=== PATIENT | male | born 1955 | race African-American/Black ===

== ENCOUNTER 2018-10-28 10:38 | Inpatient (IN) | payer MEDICARE, MEDICAID, OTHER | END 2018-11-01 17:23 | disposition home or self-care (01) | LOC: ER 10:38 → TELE 10:40 → TELE-WESTW 22:18 | DX: I13.0 Hypertensive heart and chronic kidney disease with heart failure and stage 1 through stage 4 chronic kidney disease, or unspecified chronic kidney disease (principal); I50.23 Acute on chronic systolic (congestive) heart failure; R07.9 Chest pain, unspecified; I25.10 Atherosclerotic heart disease of native coronary artery without angina pectoris; N18.9 Chronic kidney disease, unspecified ==

== ENCOUNTER 2018-11-26 17:10 | Inpatient (IN) | payer MEDICARE, MEDICAID ==
[~2018-11-26] VITALS: Ht 182.9 cm; Wt 105.5 kg
[~2018-11-26 17:10] MED LIST: ASPI1TAB19 PO; CLOP75TA28 PO; DEXL60CA3 PO; FURO40TA4; LEVEMIR SC; LIRA18IN2 SUBCUT; LISI10TA6 PO; METF-490 PO; METO25TA5 PO; POT10T PO; PREG100C PO; ROSU40TA PO; TRIAPOW43 PO
[2018-11-26] MEDS ORDERED: ACETAMINOPHEN 325 MG TAB PO ONE (17:45)
[2018-11-26 18:05] LABS: Basophils # (auto) 0 uL; Eosinophils # (auto) 0.2 uL; Hemoglobin 11.6 g/dL (13.5-17.5); Lymphocytes # (auto) 1.8 uL; Monocytes # (auto) 0.5 uL; Nucleated Red Blood Cells % 0.1 %; White Blood Cell 5.4 10^3/uL (4.4-10.8)
[2018-11-26 18:10] LABS: Basophils % (auto) 0.1 % (0.0-2.0); Hematocrit 36.9 % (41.0-53.0); Lymphocytes % (auto) 32.7 % (10.0-50.0); Mean Corpuscular Hemoglobin 24.9 pg (28.0-32.0); Mean Corpuscular Hgb Conc. 31.5 g/dL (32.0-36.0); Mean Corpuscular Volume 78.9 fL (80.0-100.0); Monocytes % (auto) 8.4 % (0.0-12.0); Neutrophils % (auto) 55.8 % (37.0-80.0); Platelet Count (auto) 134 10^3/uL (140-450); Red Blood Cells 4.68 10^6/uL (4.5-5.90); Red Cell Distribution Width 18.4 % (11.8-14.3)
[2018-11-26 18:15] LABS: Albumin 2.9 g/dL (3.4-5.0); Anion Gap 4 (5-15); Blood Urea Nitrogen 20 mg/dL (7-18); Calcium 8.1 mg/dL (8.5-10.1); Carbon Dioxide 30 mmol/L (21-32); Chloride 107 mmol/L (98-107); Glucose 114 mg/dL (74-106); Magnesium 2.4 mg/dL (1.6-2.6); Potassium 3.7 mmol/L (3.5-5.1); Sodium 141 mmol/L (136-145)
[2018-11-26 18:22] LABS: Alanine Aminotransferase 16 U/L (16-61); Alkaline Phosphatase 138 U/L (45-117); Aspartate Aminotransferase 19 U/L (15-37); BUN/Creatinine Ratio 12.3; Bilirubin, Total 0.2 mg/dL (0.2-1.0); GFR African American 56 mL/min; GFR Non-African American 46 mL/min; Total Protein 6.6 g/dL (6.4-8.2)
[2018-11-26] MEDS ORDERED: HYDROmorphone HCL 2 MG/ML VL IV ONE (20:30)
[2018-11-26] MEDS ORDERED: SOD CHL 0.45% 1,000 ML IV ONE (20:30)
[2018-11-26] MEDS ORDERED: SODIUM CHLORIDE 0.9% 2,000 ML IV ONE (20:30)
[2018-11-26] MEDS ORDERED: DEXTROSE (50%) 50ML SYRG IV PRN (20:30)
[2018-11-26] MEDS ORDERED: ONDANSETRON HCL 4 MG/2 ML VIAL IV PRN (20:30)
[2018-11-26] MEDS ORDERED: NITROGLYCERIN 0.4 MG SL TAB SL PRN ×2 (20:30→22:00)
[2018-11-26 20:40] LABS: Amylase 94 U/L (25-115); Lipase 148 U/L (73-393)
[2018-11-26 20:41] LABS: Partial Thromboplastin Time 27.5 sec (23.64-32.05)
[2018-11-26] MEDS: ACCU-CHEK COMFORT CURVE STRIP VI SCH (22:00)
[2018-11-26 22:30] LABS: Urine Bacteria NONE SEEN /hpf (None Seen); Urine Blood Negative /uL (Negative); Urine Specific Gravity 1.011 (1.001-1.035); Urine WBC <1 /hpf (0 - 3)
--- NOTE | 2018-11-26 22:30 | NUR ---
Telemetry admit from [facility]ATTI admitted to Telemetry unit after SBAR received. Patient oriented to LILIAM GONSALEZ, RN primary RN, unit, room, bed, and unit policies regarding patient care and visiting hours. Patient now on continuous telemetry monitoring, tele box #28 and telemetry reading on arrival to unit is Sinus Bradycardia. Patient placed on bedside oxygen, weighed by bedscale and encouraged to call if they need something. All questions and concerns addressed, patient verbalized understanding.
[2018-11-26 22:50] LABS: Alcohol, Urine < 3.0 mg/dL (0-5); Amphetamine Screen, Urine NEGATIVE (NEGATIVE); Barbiturate Scree,Urine POSITIVE (NEGATIVE); Benzodiazephine Screen, Urine NEGATIVE (NEGATIVE); Cannabinoid Screen, Urine NEGATIVE (NEGATIVE); Cocaine Screen, Urine NEGATIVE (NEGATIVE); Opiate Scree,Urine NEGATIVE (NEGATIVE); Phencyclidine Screen, Urine NEGATIVE (NEGATIVE)
[2018-11-27 00:07] VITALS: BP 128/67
--- NOTE | 2018-11-27 00:19 | NUR ---
Primary MD paged: Patient complaining of 7/10 pain and requesting pain medication.
--- NOTE | 2018-11-27 00:22 | NUR ---
Dr. Ramsey returned call: Dr. Ramsey notified of patients condition. New orders obtained.
[2018-11-27] MEDS ORDERED: OXYCODONE W/ ACETAMINOPHEN 5/325MG TABLET PO PRN ×2 (00:30→16:32)
[2018-11-27 05:45] VITALS: BP 119/58
[2018-11-27] MEDS: ACCU-CHEK COMFORT CURVE STRIP VI SCH ×4 (06:31→21:33)
[2018-11-27 06:32] LABS: Basophils # (auto) 0 uL; Basophils % (auto) 0.2 % (0.0-2.0); Eosinophils # (auto) 0.2 uL; Hematocrit 37.9 % (41.0-53.0); Lymphocytes # (auto) 2.1 uL; Mean Corpuscular Hgb Conc. 31.7 g/dL (32.0-36.0); Monocytes # (auto) 0.4 uL; Neutrophils # (auto) 3.2 uL; Platelet Count (auto) 127 10^3/uL (140-450); Red Cell Distribution Width 18.3 % (11.8-14.3); White Blood Cell 5.9 10^3/uL (4.4-10.8)
[2018-11-27] MEDS: InsuLIN REG 1unit/0.01ml Soln (100units/ml) SC SCH ×3 (06:32→17:00)
[2018-11-27 06:35] LABS: Eosinophils % (auto) 3.4 % (0.0-7.0); Lymphocytes % (auto) 35.7 % (10.0-50.0); Mean Corpuscular Hemoglobin 24.8 pg (28.0-32.0); Mean Corpuscular Volume 78.4 fL (80.0-100.0); Monocytes % (auto) 6.9 % (0.0-12.0); Neutrophils % (auto) 53.8 % (37.0-80.0); Red Blood Cells 4.84 10^6/uL (4.5-5.90)
[2018-11-27 06:53] LABS: Albumin 2.9 g/dL (3.4-5.0); BUN/Creatinine Ratio 14.1; Bilirubin, Total 0.1 mg/dL (0.2-1.0); Calcium 8.3 mg/dL (8.5-10.1)
--- NOTE | 2018-11-27 07:30 | NUR ---
Opening Shift Note Assumed care of patient, awake, alert, and oriented x4. No S/S of distress/SOB, but patient is reporting generalized left sided body pain of 6/10. IV is in right AC 18 gauge and is asymptomatic, intact, patent, and saline locked. IV is in right forearm 18 gauge and is asymptomatic, intact, patent, and infusing 1/2 normal saline at 40 mL/hour. Bed is locked and in lowest position and call light is within reach. Instructed on POC and to call for assist PRN, and patient verbalized understanding. Will continue to monitor for changes Q1hr and PRN.
[2018-11-27 08:00] VITALS: BP 105/51
--- NOTE | 2018-11-27 09:00 | NUR ---
Dr. Scooter MD, at bedside. New orders received.
--- NOTE | 2018-11-27 09:00 | NUR ---
Patient requested to speak with charge nurseVargas. Charge nurseVargas, at bedside.
[2018-11-27] MEDS ORDERED: POTASSIUM CHL 10 Meq TABLET PO PRN (09:45)
[2018-11-27] MEDS ORDERED: HYDROmorphone HCL 2 MG/ML VL IV PRN ×2 (09:45→10:30)
[2018-11-27] MEDS ORDERED: INSULIN DETEMIR 100 UNIT SC SCH (10:00)
[2018-11-27] MEDS: FAMOTIDINE (10MG/ML) 2ML VL IV SCH ×2 (10:09→21:32)
[2018-11-27] MEDS: CLOPIDOGREL BISULFATE 75 MG TAB PO SCH (10:10)
[2018-11-27] MEDS: ASPirin-EC 81 mg tab PO SCH (10:10)
[2018-11-27] MEDS: LEVETIRACETAM 500 MG TAB PO SCH ×2 (10:10→21:32)
[2018-11-27] MEDS ORDERED: PREGABALIN 25 MG CAP PO ONE (10:15)
[2018-11-27] MEDS ORDERED: FAMOTIDINE (10MG/ML) 2ML VL IV ONE (10:15)
[2018-11-27] MEDS ORDERED: PREGABALIN CAPSULE 75 MG CAP PO ONE (10:15)
[2018-11-27] MEDS ORDERED: POTASSIUM CHLORIDE 8 MEQ TAB PO PRN (10:30)
--- NOTE | 2018-11-27 10:30 | NUR ---
Received call from pharmacist Cheri; need new orders put in by Dr. Helms verified. Paged Dr. Helms. Awaiting reply.
[2018-11-27 12:00] VITALS: BP 146/83
--- NOTE | 2018-11-27 13:00 | NUR ---
Patient had large bowel movement. Stool culture sent to Lab.
--- NOTE | 2018-11-27 13:15 | NUR ---
[employer] performed full linen change and bed bath.
[2018-11-27] MEDS ORDERED: HYDROmorphone HCL 2 MG/ML VL IV ONE (15:45)
[2018-11-27 16:00] VITALS: BP 115/58
--- NOTE | 2018-11-27 16:00 | NUR ---
Dr. Scooter MD, verified pharmacy orders.
[2018-11-27] MEDS ORDERED: INSULIN LANTUS (GLARGINE) 1 /0.01ml (100units/ml) SC SCH (17:00)
[2018-11-27] MEDS: INSULIN LANTUS (GLARGINE) 1 /0.01ml (100units/ml) SC SCH (17:00)
[2018-11-27] MEDS: POTASSIUM CHLORIDE 8 MEQ TAB PO SCH (17:01)
--- NOTE | 2018-11-27 17:04 | NUR ---
assessment Patient will need a resumption order for [facility] on discharge. Addendum: 11/27/18 at 1705 by Shivani VALENZUELA Amended: Links added.
[2018-11-27] MEDS: metFORMIN HYDROCHLORIDE 500 MG TAB PO SCH (17:12)
--- NOTE | 2018-11-27 17:16 | NUR ---
Patient blood sugar reading is 113. Patient has refused Lantus, and Metformin dose. No distress noted at this time. Will continue to monitor patient Q1.
--- NOTE | 2018-11-27 19:00 | NUR ---
Opening Shift Note Assumed care of patient, awake and alert. No S/S of distress/SOB or pain. Instructed on POC and to call for assist PRN, will continue to monitor for changes Q1hr and PRN.
[2018-11-27] MEDS: HYDROmorphone HCL 2 MG/ML VL IV PRN ×2 (20:00→23:43)
[2018-11-27] MEDS: PREGABALIN 25 MG CAP PO SCH (21:33)
[2018-11-27] MEDS: ATORVASTATIN 20 MG TAB PO SCH (21:33)
[2018-11-27] MEDS: PREGABALIN CAPSULE 75 MG CAP PO SCH (21:33)
--- NOTE | 2018-11-27 22:00 | NUR ---
Patient blood sugar 114.
[2018-11-28] MEDS: HYDROmorphone HCL 2 MG/ML VL IV PRN ×5 (05:16→23:41)
[2018-11-28 05:50] VITALS: BP 130/69
[2018-11-28 05:56] LABS: Basophils # (auto) 0 uL; Eosinophils # (auto) 0.2 uL; Hemoglobin 12.1 g/dL (13.5-17.5); Mean Corpuscular Hemoglobin 24.8 pg (28.0-32.0); Monocytes # (auto) 0.4 uL; Red Blood Cells 4.87 10^6/uL (4.5-5.90)
[2018-11-28 05:58] LABS: Basophils % (auto) 0.4 % (0.0-2.0); Eosinophils % (auto) 3.8 % (0.0-7.0); Hematocrit 38.1 % (41.0-53.0); Lymphocytes # (auto) 2.1 uL; Lymphocytes % (auto) 36.1 % (10.0-50.0); Mean Corpuscular Hgb Conc. 31.7 g/dL (32.0-36.0); Mean Corpuscular Volume 78.3 fL (80.0-100.0); Monocytes % (auto) 7.6 % (0.0-12.0); Neutrophils % (auto) 52.1 % (37.0-80.0); Nucleated Red Blood Cells % 0.1 %; Platelet Count (auto) 127 10^3/uL (140-450); Red Cell Distribution Width 18.4 % (11.8-14.3); White Blood Cell 5.8 10^3/uL (4.4-10.8)
[2018-11-28 06:03] LABS: BUN/Creatinine Ratio 13.6; Calcium 8.2 mg/dL (8.5-10.1); Potassium 4.1 mmol/L (3.5-5.1)
[2018-11-28] MEDS: ACCU-CHEK COMFORT CURVE STRIP VI SCH ×4 (06:31→21:58)
[2018-11-28] MEDS: InsuLIN REG 1unit/0.01ml Soln (100units/ml) SC SCH ×3 (06:31→17:00)
[2018-11-28] MEDS: INSULIN LANTUS (GLARGINE) 1 /0.01ml (100units/ml) SC SCH ×2 (06:32→17:00)
--- NOTE | 2018-11-28 07:45 | NUR ---
Opening Patient awake in bed, bed in lowest position, call light within reach. No distress noted at this time. Will f/u with morning assessment. Reviewing charts: HGB 12.1 HCT 38.1 Tox screen: positive for barbiturates UA --negative CXR -- cardimegaly, pulm vasc congestion, atelectasis Low lobes Head ct --chronic changes Stress test negative with MD TREJO Trop negative x 3 Stool negative for blood EKG once daily at 0500 shown SB report from [facility] nurse SS --[facility], notes indicate a need for resumption order on discharge for this patient Will continue to monitor this patient
[2018-11-28] MEDS: metFORMIN HYDROCHLORIDE 500 MG TAB PO SCH ×2 (08:00→17:32)
[2018-11-28 09:00] VITALS: BP 133/70
[2018-11-28] MEDS: LEVETIRACETAM 500 MG TAB PO SCH ×2 (09:54→21:58)
[2018-11-28] MEDS: POTASSIUM CHLORIDE 8 MEQ TAB PO SCH (09:54)
[2018-11-28] MEDS: PREGABALIN 25 MG CAP PO SCH ×2 (09:55→21:58)
[2018-11-28] MEDS: PREGABALIN CAPSULE 75 MG CAP PO SCH ×2 (09:55→21:58)
[2018-11-28] MEDS: FAMOTIDINE (10MG/ML) 2ML VL IV SCH ×2 (09:55→21:58)
[2018-11-28] MEDS: CLOPIDOGREL BISULFATE 75 MG TAB PO SCH (10:00)
[2018-11-28] MEDS: ASPirin-EC 81 mg tab PO SCH (10:00)
[2018-11-28 13:00] VITALS: BP_SYST 137; BP_SYST 139; BP_DIAS 72; BP_DIAS 84
--- NOTE | 2018-11-28 14:38 | NUR ---
FYI-patient was previously on service with [facility].
[2018-11-28 17:00] VITALS: BP 131/53
--- NOTE | 2018-11-28 19:20 | NUR ---
Opening Shift Note Assumed care of patient, awake and alert. No S/S of distress/SOB. Patient complaining of 8/10 generalized pain, will medicate as ordered, see eMAR. Instructed on POC and to call for assist PRN. Bed in lowest locked position, call light within reach, side rails up x2, fall precautions in place. Will continue to monitor for changes Q1hr and PRN.
--- NOTE | 2018-11-28 21:50 | NUR ---
Dr. Helms at bedside.
[2018-11-28] MEDS: ATORVASTATIN 20 MG TAB PO SCH (21:58)
[2018-11-28 22:00] VITALS: BP 130/67
[2018-11-29 05:00] VITALS: BP 119/50
[2018-11-29] MEDS: HYDROmorphone HCL 2 MG/ML VL IV PRN ×5 (05:05→22:25)
[2018-11-29] MEDS: InsuLIN REG 1unit/0.01ml Soln (100units/ml) SC SCH ×3 (06:28→16:51)
[2018-11-29] MEDS: INSULIN LANTUS (GLARGINE) 1 /0.01ml (100units/ml) SC SCH ×2 (06:29→16:51)
[2018-11-29] MEDS: ACCU-CHEK COMFORT CURVE STRIP VI SCH ×4 (06:29→21:38)
--- NOTE | 2018-11-29 07:42 | NUR ---
Opening Patient awake in bed, bed in lowest position, call light within reach. No distress noted at this time. Will f/u with morning assessment. Consult for bradycardia with MD TREJO has been place/called. Patient has sustained bradycardia asymptomatic Will continue to monitor this patient
[2018-11-29] MEDS: metFORMIN HYDROCHLORIDE 500 MG TAB PO SCH ×2 (08:00→16:52)
[2018-11-29 09:00] VITALS: BP 145/70
[2018-11-29] MEDS: FAMOTIDINE (10MG/ML) 2ML VL IV SCH ×2 (09:23→21:33)
[2018-11-29] MEDS: LEVETIRACETAM 500 MG TAB PO SCH ×2 (09:24→21:34)
[2018-11-29] MEDS: PREGABALIN CAPSULE 75 MG CAP PO SCH ×2 (09:24→21:33)
[2018-11-29] MEDS: POTASSIUM CHLORIDE 8 MEQ TAB PO SCH (09:24)
[2018-11-29] MEDS: PREGABALIN 25 MG CAP PO SCH ×2 (09:24→21:47)
[2018-11-29] MEDS: CLOPIDOGREL BISULFATE 75 MG TAB PO SCH (09:31)
[2018-11-29] MEDS: ASPirin-EC 81 mg tab PO SCH (09:31)
[2018-11-29] MEDS ORDERED: KETOROLAC TROMETH 15 mg/ml 1ML VL IV PRN (11:15)
[2018-11-29 13:00] VITALS: BP 148/71
--- NOTE | 2018-11-29 15:00 | NUR ---
MARIELA OLSON WANTS TO KEEP PATIENT UNTIL FURTHER NOTICE, DUE TO BRADYCARDIA
[2018-11-29 17:00] VITALS: BP 144/69
--- NOTE | 2018-11-29 20:00 | NUR ---
Opening Shift Note Assumed care of patient, awake and alert. No S/S of distress/SOB or pain. Instructed on POC and to call for assist PRN, will continue to monitor for changes Q1hr and PRN.Family at bedside.
[2018-11-29] MEDS: ATORVASTATIN 20 MG TAB PO SCH (21:34)
[2018-11-29 22:00] VITALS: BP 104/54
[2018-11-30] MEDS: HYDROmorphone HCL 2 MG/ML VL IV PRN ×3 (04:57→14:28)
[2018-11-30 05:00] VITALS: BP 120/73
[2018-11-30] MEDS: INSULIN LANTUS (GLARGINE) 1 /0.01ml (100units/ml) SC SCH ×2 (05:46→17:00)
[2018-11-30] MEDS: ACCU-CHEK COMFORT CURVE STRIP VI SCH ×3 (05:46→17:00)
[2018-11-30] MEDS: InsuLIN REG 1unit/0.01ml Soln (100units/ml) SC SCH ×3 (05:47→17:00)
[2018-11-30 05:56] LABS: Basophils # (auto) 0 uL; Basophils % (auto) 0.2 % (0.0-2.0); Eosinophils # (auto) 0.2 uL; Eosinophils % (auto) 3.4 % (0.0-7.0); Hematocrit 41.7 % (41.0-53.0); Hemoglobin 13.1 g/dL (13.5-17.5); Lymphocytes # (auto) 2.5 uL; Lymphocytes % (auto) 37.1 % (10.0-50.0); Mean Corpuscular Hemoglobin 24.7 pg (28.0-32.0); Mean Corpuscular Hgb Conc. 31.4 g/dL (32.0-36.0); Mean Corpuscular Volume 78.8 fL (80.0-100.0); Monocytes # (auto) 0.5 uL; Monocytes % (auto) 7.2 % (0.0-12.0); Neutrophils # (auto) 3.5 uL; Neutrophils % (auto) 52.1 % (37.0-80.0); Nucleated Red Blood Cells % 0.1 %; Platelet Count (auto) 121 10^3/uL (140-450); Red Blood Cells 5.29 10^6/uL (4.5-5.90); White Blood Cell 6.7 10^3/uL (4.4-10.8)
--- NOTE | 2018-11-30 07:26 | NUR ---
Report given to Gallo Hylton ,patient is resting no distress.
[2018-11-30] MEDS: metFORMIN HYDROCHLORIDE 500 MG TAB PO SCH ×2 (08:00→18:00)
[2018-11-30 09:00] VITALS: BP 130/52
[2018-11-30] MEDS: FAMOTIDINE (10MG/ML) 2ML VL IV SCH (10:28)
[2018-11-30] MEDS: LEVETIRACETAM 500 MG TAB PO SCH (10:28)
[2018-11-30] MEDS: ASPirin-EC 81 mg tab PO SCH (10:28)
[2018-11-30] MEDS: PREGABALIN CAPSULE 75 MG CAP PO SCH (10:28)
[2018-11-30] MEDS: POTASSIUM CHLORIDE 8 MEQ TAB PO SCH (10:28)
[2018-11-30] MEDS: PREGABALIN 25 MG CAP PO SCH (10:28)
[2018-11-30] MEDS: CLOPIDOGREL BISULFATE 75 MG TAB PO SCH (10:28)
[2018-11-30 13:00] VITALS: BP 131/81
[2018-11-30 15:05] VITALS: BP 131/81
[2018-11-30 16:59] VITALS: BP 139/72
== END 2018-11-30 19:00 | disposition home or self-care (01) | DRG 314 ==
LOC: EDBD 17:10 → ER 17:16 → TELE 17:17 → TELE-WESTW 22:42
PROVIDERS: ADMIT Specialist; ATTEND Specialist
DX: I95.9 Hypotension, unspecified (principal); G82.50 Quadriplegia, unspecified; I13.0 Hypertensive heart and chronic kidney disease with heart failure and stage 1 through stage 4 chronic kidney disease, or unspecified chronic kidney disease; K92.1 Melena; F11.20 Opioid dependence, uncomplicated; I69.354 Hemiplegia and hemiparesis following cerebral infarction affecting left non-dominant side; I69.351 Hemiplegia and hemiparesis following cerebral infarction affecting right dominant side; I25.10 Atherosclerotic heart disease of native coronary artery without angina pectoris; E11.21 Type 2 diabetes mellitus with diabetic nephropathy; E11.42 Type 2 diabetes mellitus with diabetic polyneuropathy; E86.1 Hypovolemia; I50.9 Heart failure, unspecified; G40.909 Epilepsy, unspecified, not intractable, without status epilepticus; N18.9 Chronic kidney disease, unspecified; E11.22 Type 2 diabetes mellitus with diabetic chronic kidney disease; E66.09 Other obesity due to excess calories; E78.00 Pure hypercholesterolemia, unspecified; G47.30 Sleep apnea, unspecified; J44.9 Chronic obstructive pulmonary disease, unspecified; E78.5 Hyperlipidemia, unspecified; R00.1 Bradycardia, unspecified; K21.9 Gastro-esophageal reflux disease without esophagitis; I25.5 Ischemic cardiomyopathy; G89.29 Other chronic pain; M54.9 Dorsalgia, unspecified; I70.0 Atherosclerosis of aorta; Z88.6 Allergy status to analgesic agent; Z88.5 Allergy status to narcotic agent; Z88.0 Allergy status to penicillin; Z79.84 Long term (current) use of oral hypoglycemic drugs; Z82.3 Family history of stroke; Z83.3 Family history of diabetes mellitus; Z82.49 Family history of ischemic heart disease and other diseases of the circulatory system; Z80.0 Family history of malignant neoplasm of digestive organs; Z79.02 Long term (current) use of antithrombotics/antiplatelets; Z95.5 Presence of coronary angioplasty implant and graft; Z79.899 Other long term (current) drug therapy; Z68.31 Body mass index [BMI] 31.0-31.9, adult
CPT/HCPCS: 36415; 70450; 71045; 80048; 80053; 80307; 81001; 82010; 82150; 82270; 82533; 82962; 83036; 83690; 83735; 83880; 84443; 84484; 85025; 85610; 85730; 87081; 93005; 94761; 96374; G0378; J3490

== ENCOUNTER 2020-07-29 21:42 | Inpatient (IN) | payer MEDICARE, MEDICAID ==
[~2020-07-29] VITALS: Ht 180.3 cm; Wt 110.2 kg
[~2020-07-29 21:42] MED LIST changes: -DEXL60CA3 PO; +DEXL60CA4 PO; +LISI-648 PO; -LISI10TA6 PO; -METO25TA5 PO
[2020-07-29] MEDS ORDERED: MORPHINE SULFATE 4 MG/ML SYR/VIAL IV ONE (22:45)
[2020-07-29] MEDS ORDERED: ONDANSETRON HCL 4 MG/2 ML VIAL IV ONE (22:45)
[2020-07-29 22:57] LABS: Basophils # (auto) 0 10 ^3/uL (0-0.2); Basophils % (auto) 0.7 % (0.0-2.0); Eosinophils # (auto) 0.1 10 ^3/uL (0-0.8); Eosinophils % (auto) 2.2 % (0.0-7.0); Hematocrit 38.3 % (41.0-53.0); Hemoglobin 12.6 g/dL (13.5-17.5); Lymphocytes % (auto) 18.7 % (10.0-50.0); Mean Corpuscular Hemoglobin 28.1 pg (28.0-32.0); Mean Corpuscular Volume 85.1 fL (80.0-100.0); Monocytes # (auto) 0.3 10 ^3/uL (0-1.3); Monocytes % (auto) 5.4 % (0.0-12.0); Neutrophils # (auto) 3.9 10 ^3/uL (1.6-8.6); Nucleated Red Blood Cells % 0.1 %; Platelet Count (auto) 161 10^3/uL (140-450); Red Cell Distribution Width 17.7 % (11.8-14.3); White Blood Cell 5.4 10^3/uL (4.4-10.8)
[2020-07-29 23:21] LABS: Alanine Aminotransferase 7 U/L (16-61); Albumin 3.3 g/dL (3.4-5.0); Anion Gap 12 (5-15); Aspartate Aminotransferase 14 U/L (15-37); BUN/Creatinine Ratio 10.7; Blood Urea Nitrogen 9 mg/dL (7-18); Calcium 8.6 mg/dL (8.5-10.1); Carbon Dioxide 22 mmol/L (21-32); Chloride 105 mmol/L (98-107); GFR African American 118 mL/min; GFR Non-African American 97 mL/min; Glucose 134 mg/dL (74-106); Potassium 3.7 mmol/L (3.5-5.1); Sodium 139 mmol/L (136-145)
[2020-07-29 23:35] LABS: Alkaline Phosphatase 99 U/L (45-117); Bilirubin, Total 0.3 mg/dL (0.2-1.0); Total Protein 7.7 g/dL (6.4-8.2)
[2020-07-29 23:50] LABS: INR 1.14 (0.9-1.15); Partial Thromboplastin Time 28.6 sec (23.0-31.2)
[2020-07-30 00:15] LABS: Amylase 88 U/L (25-115); Lipase 187 U/L (73-393)
[2020-07-30] MEDS ORDERED: MORPHINE SULFATE 4 MG/ML SYR/VIAL IV ONE (00:15)
[2020-07-30] MEDS ORDERED: IOHEXOL 350 MG/ML 100ML IJ ONE (00:39)
[2020-07-30] MEDS ORDERED: cefTRIAXone 1GM/50ML D5W 50 ML IV ONE (00:45)
[2020-07-30 01:47] LABS: Urine Bacteria FEW /hpf (None Seen); Urine Blood Negative /uL (Negative); Urine Mucus FEW (None Seen); Urine WBC 3 /hpf (0 - 3)
[2020-07-30] MEDS ORDERED: PIPERACILLIN-TAZOB 3.375GM 100 ML IV ONE (02:00)
[2020-07-30] MEDS ORDERED: NITROGLYCERIN 0.4 MG SL TAB SL PRN (03:15)
[2020-07-30] MEDS ORDERED: MORPHINE SULF INJ 2 MG/ML SYRINGE 1ML IV PRN (03:15)
[2020-07-30] MEDS: MORPHINE SULFATE 4 MG/ML SYR/VIAL IV PRN ×3 (04:19→21:27)
[2020-07-30 05:44] LABS: Basophils # (auto) 0 10 ^3/uL (0-0.2); Basophils % (auto) 0.8 % (0.0-2.0); Eosinophils # (auto) 0.2 10 ^3/uL (0-0.8); Eosinophils % (auto) 2.8 % (0.0-7.0); Hematocrit 37.6 % (41.0-53.0); Hemoglobin 12.5 g/dL (13.5-17.5); Lymphocytes # (auto) 1.5 10 ^3/uL (0.4-5.4); Lymphocytes % (auto) 26.4 % (10.0-50.0); Mean Corpuscular Hemoglobin 28.2 pg (28.0-32.0); Mean Corpuscular Hgb Conc. 33.3 g/dL (32.0-36.0); Mean Corpuscular Volume 84.6 fL (80.0-100.0); Monocytes # (auto) 0.4 10 ^3/uL (0-1.3); Monocytes % (auto) 6.7 % (0.0-12.0); Neutrophils # (auto) 3.6 10 ^3/uL (1.6-8.6); Neutrophils % (auto) 63.3 % (37.0-80.0); Platelet Count (auto) 153 10^3/uL (140-450); Red Blood Cells 4.44 10^6/uL (4.5-5.90); Red Cell Distribution Width 17.9 % (11.8-14.3); White Blood Cell 5.7 10^3/uL (4.4-10.8)
[2020-07-30 05:59] LABS: Potassium 3.8 mmol/L (3.5-5.1)
[2020-07-30 06:00] VITALS: BP 142/78
[2020-07-30 06:12] LABS: Albumin 3.2 g/dL (3.4-5.0); BUN/Creatinine Ratio 10.3; Bilirubin, Total 0.3 mg/dL (0.2-1.0); Calcium 8.5 mg/dL (8.5-10.1); Total Protein 7.5 g/dL (6.4-8.2)
[2020-07-30] MEDS: LISINOPRIL 10 MG TAB PO SCH (08:58)
[2020-07-30] MEDS: PANTOPRAZOLE 40 MG TAB PO SCH (08:58)
[2020-07-30] MEDS: METOPROLOL TARTRATE 25 MG TAB PO SCH (08:58)
[2020-07-30 09:00] VITALS: BP 128/76
[2020-07-30] MEDS: SOD CHL 0.45% 1,000 ML IV SCH ×2 (09:39→21:20)
[2020-07-30] MEDS ORDERED: ASPirin-EC 81 mg tab PO SCH (10:00)
[2020-07-30] MEDS ORDERED: FUROSEMIDE 40 MG TAB PO PRN (10:15)
[2020-07-30 13:00] VITALS: BP 116/61
[2020-07-30] MEDS ORDERED: POTASSIUM CHLORIDE 8 MEQ TAB PO PRN (13:45)
[2020-07-30 17:21] VITALS: BP 130/88
[2020-07-30] MEDS: PREGABALIN 25 MG CAP PO SCH (21:20)
[2020-07-30 22:00] VITALS: BP 115/53
[2020-07-31] MEDS: MORPHINE SULFATE 4 MG/ML SYR/VIAL IV PRN ×5 (01:28→21:56)
[2020-07-31 05:00] VITALS: BP 109/53
[2020-07-31 09:00] VITALS: BP 149/70
[2020-07-31] MEDS: PREGABALIN 25 MG CAP PO SCH ×2 (09:18→21:57)
[2020-07-31] MEDS: ASPirin-EC 81 mg tab PO SCH (09:18)
[2020-07-31] MEDS: METOPROLOL TARTRATE 25 MG TAB PO SCH (09:18)
[2020-07-31] MEDS: PANTOPRAZOLE 40 MG TAB PO SCH (09:19)
[2020-07-31] MEDS: LISINOPRIL 10 MG TAB PO SCH (09:19)
[2020-07-31] MEDS: SOD CHL 0.45% 1,000 ML IV SCH ×2 (12:35→17:56)
[2020-07-31 13:00] VITALS: BP 129/67
[2020-07-31 16:54] VITALS: BP 136/81
[2020-07-31 22:00] VITALS: BP 133/74
[2020-08-01] MEDS: MORPHINE SULFATE 4 MG/ML SYR/VIAL IV PRN ×6 (02:08→23:01)
[2020-08-01 05:30] VITALS: BP 145/57
[2020-08-01] MEDS: SOD CHL 0.45% 1,000 ML IV SCH ×2 (06:23→21:55)
[2020-08-01 08:30] VITALS: BP 131/66
[2020-08-01] MEDS: ASPirin-EC 81 mg tab PO SCH (10:00)
[2020-08-01] MEDS: PANTOPRAZOLE 40 MG TAB PO SCH (10:29)
[2020-08-01] MEDS: METOPROLOL TARTRATE 25 MG TAB PO SCH (10:29)
[2020-08-01] MEDS: LISINOPRIL 10 MG TAB PO SCH (10:30)
[2020-08-01] MEDS: PREGABALIN 25 MG CAP PO SCH ×2 (10:58→21:15)
[2020-08-01 12:05] VITALS: BP 154/76
[2020-08-01 16:40] VITALS: BP 144/75
[2020-08-01] MEDS: DOCUSATE SOD 100 MG CAP PO SCH (21:15)
[2020-08-01 22:00] VITALS: BP 156/78
[2020-08-02] MEDS: MORPHINE SULFATE 4 MG/ML SYR/VIAL IV PRN ×5 (04:47→22:20)
[2020-08-02 05:00] VITALS: BP 167/82
[2020-08-02 05:48] LABS: Basophils # (auto) 0.1 10 ^3/uL (0-0.2); Basophils % (auto) 0.9 % (0.0-2.0); Eosinophils # (auto) 0.2 10 ^3/uL (0-0.8); Eosinophils % (auto) 2.8 % (0.0-7.0); Hematocrit 36.1 % (41.0-53.0); Hemoglobin 11.9 g/dL (13.5-17.5); Lymphocytes # (auto) 1.6 10 ^3/uL (0.4-5.4); Lymphocytes % (auto) 28.2 % (10.0-50.0); Mean Corpuscular Hemoglobin 28.1 pg (28.0-32.0); Mean Corpuscular Volume 85.2 fL (80.0-100.0); Monocytes # (auto) 0.4 10 ^3/uL (0-1.3); Monocytes % (auto) 7.1 % (0.0-12.0); Neutrophils # (auto) 3.5 10 ^3/uL (1.6-8.6); Nucleated Red Blood Cells % 0.1 %; Platelet Count (auto) 169 10^3/uL (140-450); Red Blood Cells 4.24 10^6/uL (4.5-5.90); Red Cell Distribution Width 17.8 % (11.8-14.3); White Blood Cell 5.7 10^3/uL (4.4-10.8)
[2020-08-02 06:00] VITALS: BP 144/86
[2020-08-02 06:04] LABS: Potassium 3.5 mmol/L (3.5-5.1)
[2020-08-02 06:10] LABS: INR 1.05 (0.9-1.15); Partial Thromboplastin Time 28.8 sec (23.0-31.2)
[2020-08-02 06:13] LABS: Albumin 2.9 g/dL (3.4-5.0); BUN/Creatinine Ratio 15.6; Bilirubin, Total 0.3 mg/dL (0.2-1.0); Calcium 8.6 mg/dL (8.5-10.1)
[2020-08-02 08:10] VITALS: BP 144/65
[2020-08-02] MEDS: DOCUSATE SOD 100 MG CAP PO SCH ×2 (09:37→22:19)
[2020-08-02] MEDS: ASPirin-EC 81 mg tab PO SCH (09:37)
[2020-08-02] MEDS: PREGABALIN 25 MG CAP PO SCH ×2 (09:38→22:19)
[2020-08-02] MEDS: LISINOPRIL 10 MG TAB PO SCH (09:38)
[2020-08-02] MEDS: MILK OF MAGNESIA 30ML SUSP PO SCH (09:38)
[2020-08-02] MEDS: PANTOPRAZOLE 40 MG TAB PO SCH (09:38)
[2020-08-02] MEDS: METOPROLOL TARTRATE 25 MG TAB PO SCH (09:38)
[2020-08-02 12:30] VITALS: BP 140/69
[2020-08-02] MEDS: SOD CHL 0.45% 1,000 ML IV SCH (14:03)
[2020-08-02 16:57] VITALS: BP 148/65
[2020-08-02 22:00] VITALS: BP 146/90
[2020-08-03] MEDS: MORPHINE SULFATE 4 MG/ML SYR/VIAL IV PRN ×5 (02:30→19:55)
[2020-08-03 05:00] VITALS: BP 147/72
[2020-08-03 09:00] VITALS: BP 132/59
[2020-08-03] MEDS: MILK OF MAGNESIA 30ML SUSP PO SCH (10:00)
[2020-08-03] MEDS: SOD CHL 0.45% 1,000 ML IV SCH (10:34)
[2020-08-03] MEDS: DOCUSATE SOD 100 MG CAP PO SCH ×2 (10:34→22:48)
[2020-08-03] MEDS: METOPROLOL TARTRATE 25 MG TAB PO SCH (10:36)
[2020-08-03] MEDS: PREGABALIN 25 MG CAP PO SCH ×2 (10:36→22:49)
[2020-08-03] MEDS: ASPirin-EC 81 mg tab PO SCH (10:36)
[2020-08-03] MEDS: PANTOPRAZOLE 40 MG TAB PO SCH (10:36)
[2020-08-03] MEDS: LISINOPRIL 10 MG TAB PO SCH (10:37)
[2020-08-03 13:00] VITALS: BP 109/54
[2020-08-03 17:00] VITALS: BP 110/61
[2020-08-03 17:23] LABS: INR 1.06 (0.9-1.15); Partial Thromboplastin Time 29.8 sec (23.0-31.2)
[2020-08-03] MEDS: ONDANSETRON HCL 4 MG/2 ML VIAL IV PRN (19:56)
[2020-08-03 22:00] VITALS: BP 150/81
[2020-08-04] MEDS: SOD CHL 0.45% 1,000 ML IV SCH ×2 (00:05→17:18)
[2020-08-04] MEDS: MORPHINE SULFATE 4 MG/ML SYR/VIAL IV PRN ×5 (00:06→20:48)
[2020-08-04] MEDS: ONDANSETRON HCL 4 MG/2 ML VIAL IV PRN ×2 (02:49→20:49)
[2020-08-04 05:00] VITALS: BP 136/67
[2020-08-04] MEDS: LISINOPRIL 10 MG TAB PO SCH (08:58)
[2020-08-04] MEDS: PREGABALIN 25 MG CAP PO SCH ×2 (08:59→22:17)
[2020-08-04] MEDS: PANTOPRAZOLE 40 MG TAB PO SCH (08:59)
[2020-08-04] MEDS: METOPROLOL TARTRATE 25 MG TAB PO SCH (08:59)
[2020-08-04 09:00] VITALS: BP 141/68
[2020-08-04] MEDS: ASPirin-EC 81 mg tab PO SCH (09:00)
[2020-08-04] MEDS: DOCUSATE SOD 100 MG CAP PO SCH ×2 (09:00→22:16)
[2020-08-04 09:19] LABS: Basophils # (auto) 0 10 ^3/uL (0-0.2); Basophils % (auto) 0.6 % (0.0-2.0); Eosinophils # (auto) 0.2 10 ^3/uL (0-0.8); Eosinophils % (auto) 3.3 % (0.0-7.0); Hematocrit 35.9 % (41.0-53.0); Hemoglobin 11.8 g/dL (13.5-17.5); Lymphocytes # (auto) 1.4 10 ^3/uL (0.4-5.4); Lymphocytes % (auto) 26.5 % (10.0-50.0); Mean Corpuscular Hemoglobin 27.8 pg (28.0-32.0); Mean Corpuscular Hgb Conc. 32.8 g/dL (32.0-36.0); Mean Corpuscular Volume 84.7 fL (80.0-100.0); Monocytes # (auto) 0.4 10 ^3/uL (0-1.3); Neutrophils # (auto) 3.3 10 ^3/uL (1.6-8.6); Neutrophils % (auto) 61.6 % (37.0-80.0); Platelet Count (auto) 174 10^3/uL (140-450); Red Blood Cells 4.24 10^6/uL (4.5-5.90); Red Cell Distribution Width 17.7 % (11.8-14.3); White Blood Cell 5.3 10^3/uL (4.4-10.8)
[2020-08-04 09:31] LABS: Albumin 2.9 g/dL (3.4-5.0); Calcium 8.3 mg/dL (8.5-10.1); Potassium 3.7 mmol/L (3.5-5.1)
[2020-08-04 09:34] LABS: BUN/Creatinine Ratio 16.5; Bilirubin, Total 0.4 mg/dL (0.2-1.0); Total Protein 6.9 g/dL (6.4-8.2)
[2020-08-04] MEDS: MILK OF MAGNESIA 30ML SUSP PO SCH (10:00)
[2020-08-04] MEDS ORDERED: MORPHINE SULFATE 4 MG/ML SYR/VIAL IV PRN (12:15)
[2020-08-04 13:00] VITALS: BP 150/81
[2020-08-04] MEDS ORDERED: SODIUM CHLORIDE LOCK 10 ML ONE (13:21)
[2020-08-04] MEDS ORDERED: LIDOCAINE VISCOUS 2% 15ML UD ONE (13:21)
[2020-08-04] MEDS ORDERED: diphenhdrAMINE HCL 50 MG/1 ML VL ONE (13:21)
[2020-08-04] MEDS ORDERED: METOCLOPRAMIDE HCL 5MG/ml INJ 2ml VIAL ONE (15:10)
[2020-08-04] MEDS: MIDAZOLAM HCL 5 MG/ML-1ML VIAL ONE ×2 (15:46→15:50)
[2020-08-04] MEDS: fentaNYL CITRATE 100 MCG/2 ML VL ONE ×2 (15:46→15:49)
[2020-08-04] MEDS ORDERED: MAGNESIUM CITRATE SOLUTION 300 ML BTL PO ONE (16:30)
[2020-08-04 22:00] VITALS: BP 111/54
[2020-08-04] MEDS ORDERED: SUCRALFATE 1 GM/10 ML ORAL SUSP GT SCH (22:00)
[2020-08-05] MEDS: MORPHINE SULFATE 4 MG/ML SYR/VIAL IV PRN ×4 (02:15→21:58)
[2020-08-05] MEDS: ONDANSETRON HCL 4 MG/2 ML VIAL IV PRN (02:15)
[2020-08-05 05:00] VITALS: BP 139/72
[2020-08-05] MEDS: SUCRALFATE 1 GM/10 ML ORAL SUSP GT SCH ×2 (06:52→11:01)
[2020-08-05] MEDS: SOD CHL 0.45% 1,000 ML IV SCH (08:55)
[2020-08-05 09:00] VITALS: BP 142/64
[2020-08-05] MEDS: MILK OF MAGNESIA 30ML SUSP PO SCH (11:01)
[2020-08-05] MEDS: ASPirin-EC 81 mg tab PO SCH (11:01)
[2020-08-05] MEDS: PREGABALIN 25 MG CAP PO SCH ×2 (11:02→21:51)
[2020-08-05] MEDS: DOCUSATE SOD 100 MG CAP PO SCH ×2 (11:03→21:50)
[2020-08-05] MEDS: METOPROLOL TARTRATE 25 MG TAB PO SCH (11:03)
[2020-08-05] MEDS: PANTOPRAZOLE 40 MG TAB PO SCH (11:04)
[2020-08-05] MEDS: LISINOPRIL 10 MG TAB PO SCH (11:05)
[2020-08-05] MEDS ORDERED: CLOPIDOGREL 300 MG TAB PO ONE (11:15)
[2020-08-05 12:47] VITALS: BP 135/73
[2020-08-05] MEDS ORDERED: SUCR1SUS10 GT (14:07)
[2020-08-05 15:15] VITALS: BP 135/73
[2020-08-05 16:51] VITALS: BP 144/75
[2020-08-05 21:43] VITALS: BP 134/58
[2020-08-06] MEDS: SOD CHL 0.45% 1,000 ML IV SCH (02:39)
[2020-08-06] MEDS: MORPHINE SULFATE 4 MG/ML SYR/VIAL IV PRN ×2 (04:20→10:25)
[2020-08-06 05:00] VITALS: BP_SYST 105; BP_SYST 144; BP_DIAS 55; BP_DIAS 73
[2020-08-06] MEDS: SUCRALFATE 1 GM/10 ML ORAL SUSP GT SCH (06:40)
[2020-08-06 09:27] VITALS: BP 145/80
[2020-08-06] MEDS: DOCUSATE SOD 100 MG CAP PO SCH (10:21)
[2020-08-06] MEDS: ASPirin-EC 81 mg tab PO SCH (10:22)
[2020-08-06] MEDS: METOPROLOL TARTRATE 25 MG TAB PO SCH (10:23)
[2020-08-06] MEDS: PREGABALIN 25 MG CAP PO SCH (10:24)
[2020-08-06] MEDS: PANTOPRAZOLE 40 MG TAB PO SCH (10:24)
[2020-08-06] MEDS: MILK OF MAGNESIA 30ML SUSP PO SCH (10:24)
[2020-08-06] MEDS: LISINOPRIL 10 MG TAB PO SCH (10:25)
[2020-08-06 13:02] VITALS: BP 150/56
== END 2020-08-06 14:35 | disposition home or self-care (01) | DRG 445 ==
LOC: ER 21:42 → TELE 07-30 03:15 → TELE-WESTW 07-30 05:49
PROVIDERS: ADMIT Specialist; ATTEND Specialist
PROC: 0DB68ZX Excision of Stomach, Via Natural or Artificial Opening Endoscopic, Diagnostic (ICD-10-PCS; 2020-08-04)
PROC: 0DB98ZX Excision of Duodenum, Via Natural or Artificial Opening Endoscopic, Diagnostic (ICD-10-PCS; principal; 2020-08-04 15:39)
DX: K80.10 Calculus of gallbladder with chronic cholecystitis without obstruction (principal); N39.0 Urinary tract infection, site not specified; I69.354 Hemiplegia and hemiparesis following cerebral infarction affecting left non-dominant side; I13.0 Hypertensive heart and chronic kidney disease with heart failure and stage 1 through stage 4 chronic kidney disease, or unspecified chronic kidney disease; K22.10 Ulcer of esophagus without bleeding; I50.32 Chronic diastolic (congestive) heart failure; Z20.822 Contact with and (suspected) exposure to COVID-19; E86.1 Hypovolemia; E78.00 Pure hypercholesterolemia, unspecified; E86.0 Dehydration; I25.10 Atherosclerotic heart disease of native coronary artery without angina pectoris; I44.7 Left bundle-branch block, unspecified; J44.9 Chronic obstructive pulmonary disease, unspecified; N18.9 Chronic kidney disease, unspecified; E11.22 Type 2 diabetes mellitus with diabetic chronic kidney disease; R07.89 Other chest pain; E66.01 Morbid (severe) obesity due to excess calories; K21.9 Gastro-esophageal reflux disease without esophagitis; M47.812 Spondylosis without myelopathy or radiculopathy, cervical region; K29.70 Gastritis, unspecified, without bleeding; K29.80 Duodenitis without bleeding; K44.9 Diaphragmatic hernia without obstruction or gangrene; Z99.3 Dependence on wheelchair; Z88.0 Allergy status to penicillin; Z88.8 Allergy status to other drugs, medicaments and biological substances; Z68.33 Body mass index [BMI] 33.0-33.9, adult; Z93.0 Tracheostomy status; Z79.02 Long term (current) use of antithrombotics/antiplatelets; Z82.49 Family history of ischemic heart disease and other diseases of the circulatory system; Z83.3 Family history of diabetes mellitus; Z85.72 Personal history of non-Hodgkin lymphomas; Z98.61 Coronary angioplasty status; Z79.84 Long term (current) use of oral hypoglycemic drugs
CPT/HCPCS: 36415; 43239; 51702; 71045; 71250; 71275; 74176; 78226; 80053; 80061; 81001; 82150; 83036; 83605; 83615; 83690; 83880; 84484; 85025; 85379; 85610; 85730; 86850; 86900; 86901; 87040; 87086; 87426; 93005; 96374; 96375; 96376; 97110; 97116; 97530; G0378; J0696; J2250; J2405

== ENCOUNTER 2021-05-18 21:31 | Emergency (ER) | payer MEDICARE, MEDICAID ==
[~2021-05-18 21:31] MED LIST changes: -LISI-648 PO; +LISI-716 PO; +SUCR1SUS10 GT
[2021-05-18 22:58] LABS: Hemoglobin 11.6 g/dL (13.5-17.5)
[2021-05-18 23:00] LABS: Hematocrit 36.6 % (41.0-53.0); Mean Corpuscular Hemoglobin 24.3 pg (28.0-32.0); Mean Corpuscular Hgb Conc. 31.8 g/dL (32.0-36.0); Mean Corpuscular Volume 76.5 fL (80.0-100.0); Red Blood Cells 4.78 10^6/uL (4.5-5.90); White Blood Cell 8.3 10^3/uL (4.4-10.8)
[2021-05-18 23:03] LABS: Red Cell Distribution Width 22.4 % (11.8-14.3)
[2021-05-18 23:06] LABS: Basophils % (manual) 0 (0.0-2.0); Blast Cells 0; Eosinophils % (manual) 0 (0-7); Metamyelocytes % 0; Monocytes % (manual) 0 (0-12); Myelocytes % 0; Promyelocytes % 0; Reactive Lymphocytes 0
[2021-05-18 23:12] LABS: INR 1.16 (0.9-1.15); Partial Thromboplastin Time 23.6 sec (23.6-33.0)
[2021-05-18 23:20] LABS: Calcium 9.2 mg/dL (8.5-10.1); Potassium 3.5 mmol/L (3.5-5.1)
[2021-05-18 23:29] LABS: Albumin 3.3 g/dL (3.4-5.0); BUN/Creatinine Ratio 14.8; Bilirubin, Total 0.4 mg/dL (0.2-1.0); Magnesium 2.4 mg/dL (1.6-2.6); Total Protein 7.3 g/dL (6.4-8.2)
[2021-05-19 01:55] LABS: Band Neutrophils % (manual) 26; Lymphocytes % (manual) 2 (10.0-50.0)
[2021-05-19] MEDS ORDERED: SODIUM CHLORIDE 0.9% 500 ML IV ONE (02:15)
[2021-05-19] MEDS ORDERED: ACETAMINOPHEN 325 MG TAB PO ONE (04:23)
[2021-05-20 00:38] VITALS: BP 125/67
== END 2021-05-20 14:09 | disposition home or self-care (01) ==
LOC: EDBD 21:31 → ER 21:35
DX: R11.2 Nausea with vomiting, unspecified (principal); I25.2 Old myocardial infarction; E78.5 Hyperlipidemia, unspecified; I12.9 Hypertensive chronic kidney disease with stage 1 through stage 4 chronic kidney disease, or unspecified chronic kidney disease; E11.22 Type 2 diabetes mellitus with diabetic chronic kidney disease; N18.9 Chronic kidney disease, unspecified; Z79.4 Long term (current) use of insulin; Z79.82 Long term (current) use of aspirin; Z79.01 Long term (current) use of anticoagulants; Z79.899 Other long term (current) drug therapy; Z88.0 Allergy status to penicillin; Z88.8 Allergy status to other drugs, medicaments and biological substances; Z20.822 Contact with and (suspected) exposure to COVID-19
CPT/HCPCS: 36415; 74176; 80053; 83735; 83880; 84484; 85007; 85027; 85610; 85730; 87426; 93005; 96360; 96361

== ENCOUNTER 2022-01-06 20:06 | Inpatient (IN) | payer MEDICARE, MEDICAID ==
[~2022-01-06] VITALS: Ht 30.5 cm; Wt 84.0 kg
[2022-01-06] VITALS: BP 137/53
[2022-01-06] MEDS ORDERED: SENN-177 PO (22:14)
[2022-01-06] MEDS ORDERED: ATOR40TA52 (22:14)
[2022-01-06] MEDS ORDERED: HYDR1SOL36 (22:14)
[2022-01-06] MEDS ORDERED: ASPI-325 PO (22:14)
[2022-01-06] MEDS ORDERED: SACU1TAB PO (22:14)
[2022-01-06] MEDS ORDERED: CLOP75TA70 (22:14)
[2022-01-06] MEDS ORDERED: GABA400C11 (22:14)
[2022-01-06] MEDS ORDERED: PANT40T ×2 (22:14)
[2022-01-06] MEDS ORDERED: BUPR75TA10 PO (22:14)
[2022-01-06] MEDS ORDERED: MET25T (22:14)
[2022-01-06] MEDS ORDERED: APIX5TAB PO (22:14)
[2022-01-06] MEDS ORDERED: METO25TA93 PO (22:14)
[2022-01-06 22:15] VITALS: BP 125/60
[2022-01-07] MEDS ORDERED: NITROGLYCERIN 0.4 MG SL TAB SL PRN (00:15)
[2022-01-07] MEDS ORDERED: MORPHINE SULFATE INJ 2 MG/ml SYRG IV PRN (00:15)
[2022-01-07 01:12] LABS: White Blood Cell 6.3 10^3/uL (4.4-10.8)
[2022-01-07 01:13] LABS: Basophils # (auto) 0.1 10 ^3/uL (0-0.2); Basophils % (auto) 0.9 % (0.0-2.0); Eosinophils # (auto) 0.3 10 ^3/uL (0-0.8); Eosinophils % (auto) 4.1 % (0.0-7.0); Hematocrit 32.3 % (41.0-53.0); Lymphocytes # (auto) 1.4 10 ^3/uL (0.4-5.4); Mean Corpuscular Hemoglobin 23.1 pg (28.0-32.0); Mean Corpuscular Hgb Conc. 30.8 g/dL (32.0-36.0); Mean Corpuscular Volume 74.9 fL (80.0-100.0); Monocytes # (auto) 0.5 10 ^3/uL (0-1.3); Monocytes % (auto) 8.3 % (0.0-12.0); Neutrophils # (auto) 4.1 10 ^3/uL (1.6-8.6); Neutrophils % (auto) 64.7 % (37.0-80.0); Nucleated Red Blood Cells % 0.6 %; Red Blood Cells 4.32 10^6/uL (4.5-5.90)
[2022-01-07 01:35] LABS: INR 1.05 (0.9-1.15); Partial Thromboplastin Time 29.1 sec (24.6-33.4)
[2022-01-07] MEDS: HYDROmorphone HCL 2 MG/ML VL/or syr IV PRN ×3 (01:41→21:29)
[2022-01-07 01:42] LABS: Red Cell Distribution Width 20.1 % (11.8-14.3)
[2022-01-07 02:08] LABS: Albumin 2.9 g/dL (3.4-5.0); Calcium 8.6 mg/dL (8.5-10.1); Potassium 3.6 mmol/L (3.5-5.1)
[2022-01-07 02:18] LABS: BUN/Creatinine Ratio 14.7; Bilirubin, Total 0.3 mg/dL (0.2-1.0); CRP High Sensitivity 1.76 mg/dL (< 0.3); Phosphorus 3.8 mg/dL (2.5-4.90); Total Protein 5.9 g/dL (6.4-8.2)
[2022-01-07 04:44] VITALS: BP 125/59
[2022-01-07] MEDS: ACCU-CHEK COMFORT CURVE STRIP VI SCH ×4 (06:26→21:57)
[2022-01-07] MEDS: INSULIN LISPRO (HUMAN) 100 UNITS/ML ML SC SCH ×4 (06:26→21:57)
[2022-01-07] MEDS: SUCRALFATE 1 GM/10 ML ORAL SUSP GT SCH ×3 (06:27→17:00)
[2022-01-07 08:34] VITALS: BP 98/45
[2022-01-07] MEDS: ASPirin-EC 81 mg tab PO SCH (09:43)
[2022-01-07] MEDS: PREGABALIN 25 MG CAP PO SCH ×2 (09:44→21:43)
[2022-01-07] MEDS: APIXABAN 5 MG TAB PO SCH ×2 (09:44→21:15)
[2022-01-07] MEDS: ATORVASTATIN 20 MG TAB PO SCH (09:44)
[2022-01-07] MEDS: METOPROLOL SUCCINATE XL 50 MG TAB PO SCH (09:44)
[2022-01-07] MEDS: POTASSIUM CHLORIDE 8 MEQ TAB PO SCH (09:44)
[2022-01-07] MEDS: buPROPion HCL 75 MG TAB PO SCH (09:45)
[2022-01-07] MEDS ORDERED: SACUBITRIL-VALSARTAN 24mg/26mg TAB PO SCH (10:00)
[2022-01-07] MEDS ORDERED: LISINOPRIL 10 MG TAB PO SCH (10:00)
[2022-01-07 12:00] LABS: Cholesterol 138 mg/dL (< 200); HDL Cholesterol 53 mg/dL (40-59); LDL Cholesterol 84 mg/dL (< 100); Triglycerides 111 mg/dL (< 150)
[2022-01-07 12:25] VITALS: BP 106/49
[2022-01-07 13:34] LABS: Albumin 2.7 g/dL (3.4-5.0); Calcium 8.2 mg/dL (8.5-10.1); Potassium 4.2 mmol/L (3.5-5.1)
[2022-01-07 13:38] LABS: BUN/Creatinine Ratio 14.9; Bilirubin, Total 0.3 mg/dL (0.2-1.0); Total Protein 5.6 g/dL (6.4-8.2)
[2022-01-07] MEDS: diphenhdrAMINE HCL 25 MG CAP PO PRN ×2 (14:16→21:15)
[2022-01-07 16:43] VITALS: BP 114/43
[2022-01-07 20:00] VITALS: BP 113/63
[2022-01-07] MEDS ORDERED: cefTRIAXone 1GM/50ML D5W 50 ML IV ONE (20:30)
[2022-01-07] MEDS: SOD CHL 0.45% 1,000 ML IV SCH (21:43)
[2022-01-07 22:00] VITALS: BP 113/63
[2022-01-08 02:29] VITALS: BP 113/63
[2022-01-08] MEDS: SOD CHL 0.45% 1,000 ML IV SCH (03:53)
[2022-01-08 05:00] VITALS: BP 96/46
[2022-01-08] MEDS: SUCRALFATE 1 GM/10 ML ORAL SUSP GT SCH ×3 (06:40→16:53)
[2022-01-08] MEDS: ACCU-CHEK COMFORT CURVE STRIP VI SCH ×4 (06:44→21:37)
[2022-01-08] MEDS: INSULIN LISPRO (HUMAN) 100 UNITS/ML ML SC SCH ×4 (06:45→21:37)
[2022-01-08 08:56] VITALS: BP 110/39
[2022-01-08] MEDS: buPROPion HCL 75 MG TAB PO SCH (10:00)
[2022-01-08] MEDS: POTASSIUM CHLORIDE 8 MEQ TAB PO SCH (10:33)
[2022-01-08] MEDS: APIXABAN 5 MG TAB PO SCH ×2 (10:34→21:34)
[2022-01-08] MEDS: ASPirin-EC 81 mg tab PO SCH (10:34)
[2022-01-08] MEDS: ATORVASTATIN 20 MG TAB PO SCH (10:35)
[2022-01-08] MEDS: PREGABALIN 25 MG CAP PO SCH ×2 (10:35→21:36)
[2022-01-08 10:36] LABS: Eosinophils # (auto) 0.2 10 ^3/uL (0-0.8); Hemoglobin 8.3 g/dL (13.5-17.5); Mean Corpuscular Volume 74.8 fL (80.0-100.0); Neutrophils # (auto) 3.5 10 ^3/uL (1.6-8.6); White Blood Cell 5.1 10^3/uL (4.4-10.8)
[2022-01-08] MEDS: METOPROLOL SUCCINATE XL 50 MG TAB PO SCH (10:36)
[2022-01-08 10:38] LABS: Basophils # (auto) 0.1 10 ^3/uL (0-0.2); Basophils % (auto) 1.1 % (0.0-2.0); Eosinophils % (auto) 3.5 % (0.0-7.0); Lymphocytes # (auto) 1.1 10 ^3/uL (0.4-5.4); Lymphocytes % (auto) 21.2 % (10.0-50.0); Mean Corpuscular Hgb Conc. 29.5 g/dL (32.0-36.0); Monocytes # (auto) 0.3 10 ^3/uL (0-1.3); Monocytes % (auto) 6.5 % (0.0-12.0); Neutrophils % (auto) 67.7 % (37.0-80.0); Red Blood Cells 3.75 10^6/uL (4.5-5.90); Red Cell Distribution Width 19.4 % (11.8-14.3)
[2022-01-08] MEDS: FUROSEMIDE 20 MG/2 ML VIAL IV SCH (10:38)
[2022-01-08] MEDS: HYDROmorphone HCL 2 MG/ML VL/or syr IV PRN ×3 (10:46→21:38)
[2022-01-08] MEDS: diphenhdrAMINE HCL 25 MG CAP PO PRN ×2 (10:54→21:38)
[2022-01-08 13:00] VITALS: BP 119/49
[2022-01-08 16:51] VITALS: BP 116/57
[2022-01-08 22:00] VITALS: BP 109/43
[2022-01-08] MEDS ORDERED: cefTRIAXone 1GM/50ML D5W 50 ML IV SCH (22:00)
[2022-01-09] MEDS: HYDROmorphone HCL 2 MG/ML VL/or syr IV PRN ×5 (01:36→21:06)
[2022-01-09 05:00] VITALS: BP 108/51
[2022-01-09] MEDS: INSULIN LISPRO (HUMAN) 100 UNITS/ML ML SC SCH ×4 (06:17→22:00)
[2022-01-09] MEDS: SUCRALFATE 1 GM/10 ML ORAL SUSP GT SCH ×3 (06:17→17:00)
[2022-01-09] MEDS: ACCU-CHEK COMFORT CURVE STRIP VI SCH ×4 (06:17→22:48)
[2022-01-09 08:31] VITALS: BP 123/56
[2022-01-09] MEDS: PREGABALIN 25 MG CAP PO SCH ×2 (08:56→22:47)
[2022-01-09] MEDS: ASPirin-EC 81 mg tab PO SCH (08:56)
[2022-01-09] MEDS: buPROPion HCL 75 MG TAB PO SCH (08:56)
[2022-01-09] MEDS: FUROSEMIDE 20 MG/2 ML VIAL IV SCH (08:57)
[2022-01-09] MEDS: APIXABAN 5 MG TAB PO SCH ×2 (08:57→22:47)
[2022-01-09] MEDS: METOPROLOL SUCCINATE XL 50 MG TAB PO SCH (08:57)
[2022-01-09] MEDS: ATORVASTATIN 20 MG TAB PO SCH (08:57)
[2022-01-09] MEDS: POTASSIUM CHLORIDE 8 MEQ TAB PO SCH (08:58)
[2022-01-09 13:25] VITALS: BP 115/55
[2022-01-09] MEDS: diphenhdrAMINE HCL 25 MG CAP PO PRN (13:26)
[2022-01-09] MEDS: ALBUTEROL SULF 2.5 MG/0.5ML(0.5%) NEB SOLN NEB PRN (14:19)
[2022-01-09 16:22] VITALS: BP 116/59
[2022-01-09 22:00] VITALS: BP 122/56
[2022-01-09] MEDS: SOD CHL 0.45% 1,000 ML IV SCH (22:47)
[2022-01-10] MEDS: HYDROmorphone HCL 2 MG/ML VL/or syr IV PRN ×5 (03:32→23:21)
[2022-01-10 05:00] VITALS: BP 105/51
[2022-01-10] MEDS: SUCRALFATE 1 GM/10 ML ORAL SUSP GT SCH ×3 (06:21→17:44)
[2022-01-10] MEDS: cefTRIAXone 1GM/50ML D5W 50 ML IV SCH (06:22)
[2022-01-10] MEDS: ACCU-CHEK COMFORT CURVE STRIP VI SCH ×5 (06:22→22:00)
[2022-01-10] MEDS: INSULIN LISPRO (HUMAN) 100 UNITS/ML ML SC SCH ×4 (06:23→22:00)
[2022-01-10 08:43] VITALS: BP 103/47
[2022-01-10] MEDS: FUROSEMIDE 20 MG/2 ML VIAL IV SCH (09:59)
[2022-01-10] MEDS: APIXABAN 5 MG TAB PO SCH ×2 (09:59→21:38)
[2022-01-10] MEDS: buPROPion HCL 75 MG TAB PO SCH ×2 (10:00→10:01)
[2022-01-10] MEDS: POTASSIUM CHLORIDE 8 MEQ TAB PO SCH (10:00)
[2022-01-10] MEDS: ATORVASTATIN 20 MG TAB PO SCH (10:00)
[2022-01-10] MEDS: ASPirin-EC 81 mg tab PO SCH (10:00)
[2022-01-10] MEDS: PREGABALIN 25 MG CAP PO SCH ×2 (10:00→21:38)
[2022-01-10 12:00] VITALS: BP 142/46
[2022-01-10] MEDS: diphenhdrAMINE HCL 25 MG CAP PO PRN ×2 (12:51→21:36)
[2022-01-10] MEDS: METOPROLOL SUCCINATE XL 50 MG TAB PO SCH (15:02)
[2022-01-10 16:00] VITALS: BP 114/48
[2022-01-10] MEDS: ALBUTEROL SULF 2.5 MG/0.5ML(0.5%) NEB SOLN NEB PRN (19:22)
[2022-01-10 19:58] VITALS: BP 114/48
[2022-01-10 22:00] VITALS: BP 126/57
[2022-01-11] MEDS: SOD CHL 0.45% 1,000 ML IV SCH (03:47)
[2022-01-11 05:00] VITALS: BP 131/63
[2022-01-11] MEDS ORDERED: LORazepam 2MG/ML-1ML VIAL IV PRN (06:00)
[2022-01-11] MEDS: ACCU-CHEK COMFORT CURVE STRIP VI SCH ×4 (06:19→21:50)
[2022-01-11] MEDS: INSULIN LISPRO (HUMAN) 100 UNITS/ML ML SC SCH ×4 (06:20→21:50)
[2022-01-11] MEDS: cefTRIAXone 1GM/50ML D5W 50 ML IV SCH (06:57)
[2022-01-11] MEDS: SUCRALFATE 1 GM/10 ML ORAL SUSP GT SCH ×3 (06:57→17:24)
[2022-01-11 08:23] LABS: Basophils # (auto) 0.1 10 ^3/uL (0-0.2); Basophils % (auto) 1.8 % (0.0-2.0); Eosinophils # (auto) 0.2 10 ^3/uL (0-0.8); Eosinophils % (auto) 3.4 % (0.0-7.0); Hematocrit 30.5 % (41.0-53.0); Hemoglobin 9.2 g/dL (13.5-17.5); Lymphocytes # (auto) 1.9 10 ^3/uL (0.4-5.4); Lymphocytes % (auto) 29.2 % (10.0-50.0); Mean Corpuscular Hemoglobin 22.8 pg (28.0-32.0); Mean Corpuscular Hgb Conc. 30.2 g/dL (32.0-36.0); Mean Corpuscular Volume 75.3 fL (80.0-100.0); Monocytes # (auto) 0.5 10 ^3/uL (0-1.3); Monocytes % (auto) 7.7 % (0.0-12.0); Neutrophils # (auto) 3.7 10 ^3/uL (1.6-8.6); Neutrophils % (auto) 57.9 % (37.0-80.0); Nucleated Red Blood Cells % 0.2 %; Red Blood Cells 4.05 10^6/uL (4.5-5.90); Red Cell Distribution Width 19.3 % (11.8-14.3); White Blood Cell 6.4 10^3/uL (4.4-10.8)
[2022-01-11] MEDS: HYDROmorphone HCL 2 MG/ML VL/or syr IV PRN (08:24)
[2022-01-11 09:00] VITALS: BP 123/57
[2022-01-11] MEDS: ASPirin-EC 81 mg tab PO SCH (10:00)
[2022-01-11] MEDS: METOPROLOL SUCCINATE XL 50 MG TAB PO SCH (10:01)
[2022-01-11] MEDS: levETIRAcetam 500 MG TAB PO SCH ×2 (10:01→22:38)
[2022-01-11] MEDS: APIXABAN 5 MG TAB PO SCH ×2 (10:01→22:38)
[2022-01-11] MEDS: POTASSIUM CHLORIDE 8 MEQ TAB PO SCH (10:02)
[2022-01-11] MEDS: buPROPion HCL 75 MG TAB PO SCH (10:02)
[2022-01-11] MEDS: FUROSEMIDE 20 MG/2 ML VIAL IV SCH (10:06)
[2022-01-11] MEDS: ALBUTEROL SULF 2.5 MG/0.5ML(0.5%) NEB SOLN NEB PRN (10:16)
[2022-01-11] MEDS ORDERED: FUROSEMIDE 20 MG/2 ML VIAL IV ONE (12:15)
[2022-01-11] MEDS: ATORVASTATIN 20 MG TAB PO SCH (12:19)
[2022-01-11] MEDS: PREGABALIN 25 MG CAP PO SCH ×2 (12:20→22:38)
[2022-01-11 13:30] VITALS: BP 119/59
[2022-01-11 15:30] VITALS: BP 112/52
[2022-01-11 21:34] VITALS: BP 100/31
[2022-01-11] MEDS ORDERED: GLUCAGON HYDROCHLORIDE (RDNA) 1 MG VIAL IM PRN (22:45)
[2022-01-12] MEDS: SOD CHL 0.45% 1,000 ML IV SCH (00:15)
[2022-01-12 04:47] VITALS: BP 110/48
[2022-01-12] MEDS: cefTRIAXone 1GM/50ML D5W 50 ML IV SCH (06:34)
[2022-01-12] MEDS: INSULIN LISPRO (HUMAN) 100 UNITS/ML ML SC SCH ×4 (06:38→21:36)
[2022-01-12] MEDS: SUCRALFATE 1 GM/10 ML ORAL SUSP GT SCH ×3 (06:38→17:26)
[2022-01-12] MEDS: ACCU-CHEK COMFORT CURVE STRIP VI SCH ×4 (06:38→21:36)
[2022-01-12] MEDS: levETIRAcetam 500 MG TAB PO SCH ×2 (08:55→21:35)
[2022-01-12] MEDS: PREGABALIN 25 MG CAP PO SCH ×2 (08:55→21:35)
[2022-01-12] MEDS: APIXABAN 5 MG TAB PO SCH ×2 (08:55→21:35)
[2022-01-12] MEDS: buPROPion HCL 75 MG TAB PO SCH (08:56)
[2022-01-12] MEDS: ASPirin-EC 81 mg tab PO SCH (08:56)
[2022-01-12] MEDS: POTASSIUM CHLORIDE 8 MEQ TAB PO SCH (08:59)
[2022-01-12 09:00] VITALS: BP 115/61
[2022-01-12] MEDS: FUROSEMIDE 20 MG/2 ML VIAL IV SCH (09:04)
[2022-01-12] MEDS: ATORVASTATIN 20 MG TAB PO SCH (09:08)
[2022-01-12 10:42] LABS: Albumin 2.6 g/dL (3.4-5.0); BUN/Creatinine Ratio 26.5; Calcium 8.3 mg/dL (8.5-10.1); Magnesium 2.1 mg/dL (1.6-2.6); Potassium 3.6 mmol/L (3.5-5.1)
[2022-01-12 10:44] LABS: Bilirubin, Total 0.2 mg/dL (0.2-1.0); Phosphorus 3.6 mg/dL (2.5-4.90); Total Protein 5.6 g/dL (6.4-8.2)
[2022-01-12 13:24] VITALS: BP 115/47
[2022-01-12 13:30] VITALS: BP 115/58
[2022-01-12] MEDS: HYDROmorphone HCL 2 MG/ML VL/or syr IV PRN ×4 (13:30→21:33)
[2022-01-12] MEDS: METOPROLOL SUCCINATE XL 50 MG TAB PO SCH (13:32)
[2022-01-12] MEDS ORDERED: ALB5IS NEB (14:30)
[2022-01-12] MEDS ORDERED: KEP500T PO (14:30)
[2022-01-12] MEDS ORDERED: TORS20TA19 GT (14:38)
[2022-01-12 16:51] VITALS: BP 117/42
[2022-01-12] MEDS: ALBUTEROL SULF 2.5 MG/0.5ML(0.5%) NEB SOLN NEB PRN (18:03)
[2022-01-12 22:00] VITALS: BP 120/49
[2022-01-12] MEDS: diphenhdrAMINE HCL 25 MG CAP PO PRN (23:19)
[2022-01-13] VITALS (8 sets, daily range): BP systolic 112–115; BP diastolic 49–59
[2022-01-13] MEDS: SOD CHL 0.45% 1,000 ML IV SCH ×2 (00:15→11:57)
[2022-01-13] MEDS: HYDROmorphone HCL 2 MG/ML VL/or syr IV PRN ×5 (01:43→21:54)
[2022-01-13] MEDS: cefTRIAXone 1GM/50ML D5W 50 ML IV SCH (06:04)
[2022-01-13] MEDS: SUCRALFATE 1 GM/10 ML ORAL SUSP GT SCH ×3 (06:04→17:00)
[2022-01-13] MEDS: INSULIN LISPRO (HUMAN) 100 UNITS/ML ML SC SCH ×4 (06:28→21:55)
[2022-01-13] MEDS: ACCU-CHEK COMFORT CURVE STRIP VI SCH ×4 (06:28→21:55)
[2022-01-13] MEDS: buPROPion HCL 75 MG TAB PO SCH ×2 (10:00→10:18)
[2022-01-13] MEDS: FUROSEMIDE 20 MG/2 ML VIAL IV SCH (10:16)
[2022-01-13] MEDS: PREGABALIN 25 MG CAP PO SCH ×2 (10:17→21:53)
[2022-01-13] MEDS: levETIRAcetam 500 MG TAB PO SCH ×2 (10:17→21:53)
[2022-01-13] MEDS: APIXABAN 5 MG TAB PO SCH ×2 (10:17→21:52)
[2022-01-13] MEDS: ATORVASTATIN 20 MG TAB PO SCH (10:17)
[2022-01-13] MEDS: ASPirin-EC 81 mg tab PO SCH (10:17)
[2022-01-13] MEDS: POTASSIUM CHLORIDE 8 MEQ TAB PO SCH (10:17)
[2022-01-13] MEDS: METOPROLOL SUCCINATE XL 50 MG TAB PO SCH (10:18)
[2022-01-14 05:00] VITALS: BP 116/42
[2022-01-14] MEDS: cefTRIAXone 1GM/50ML D5W 50 ML IV SCH (06:11)
[2022-01-14] MEDS: ACCU-CHEK COMFORT CURVE STRIP VI SCH ×2 (06:15→11:33)
[2022-01-14] MEDS: SUCRALFATE 1 GM/10 ML ORAL SUSP GT SCH ×2 (06:18→11:08)
[2022-01-14] MEDS: INSULIN LISPRO (HUMAN) 100 UNITS/ML ML SC SCH ×2 (06:18→11:30)
[2022-01-14] MEDS: HYDROmorphone HCL 2 MG/ML VL/or syr IV PRN (07:34)
[2022-01-14 08:39] VITALS: BP 119/47
[2022-01-14] MEDS: FUROSEMIDE 20 MG/2 ML VIAL IV SCH (10:00)
[2022-01-14] MEDS: buPROPion HCL 75 MG TAB PO SCH (10:00)
[2022-01-14] MEDS: METOPROLOL SUCCINATE XL 50 MG TAB PO SCH (10:00)
[2022-01-14] MEDS: ASPirin-EC 81 mg tab PO SCH (10:20)
[2022-01-14] MEDS: PREGABALIN 25 MG CAP PO SCH (10:21)
[2022-01-14] MEDS: levETIRAcetam 500 MG TAB PO SCH (10:22)
[2022-01-14] MEDS: POTASSIUM CHLORIDE 8 MEQ TAB PO SCH (10:22)
[2022-01-14] MEDS: APIXABAN 5 MG TAB PO SCH (10:22)
[2022-01-14] MEDS: ATORVASTATIN 20 MG TAB PO SCH (10:23)
[2022-01-14] MEDS: SOD CHL 0.45% 1,000 ML IV SCH (10:30)
== END 2022-01-14 12:45 | DRG 193 ==
LOC: TELE-WESTW 21:16
PROVIDERS: ADMIT Specialist; ATTEND Specialist
DX: J18.9 Pneumonia, unspecified organism (principal); I50.43 Acute on chronic combined systolic (congestive) and diastolic (congestive) heart failure; I24.9 Acute ischemic heart disease, unspecified; I69.354 Hemiplegia and hemiparesis following cerebral infarction affecting left non-dominant side; J44.0 Chronic obstructive pulmonary disease with (acute) lower respiratory infection; E44.0 Moderate protein-calorie malnutrition; I11.0 Hypertensive heart disease with heart failure; D64.9 Anemia, unspecified; E11.9 Type 2 diabetes mellitus without complications; E78.00 Pure hypercholesterolemia, unspecified; H54.7 Unspecified visual loss; Z20.822 Contact with and (suspected) exposure to COVID-19; I25.10 Atherosclerotic heart disease of native coronary artery without angina pectoris; I25.2 Old myocardial infarction; Z79.01 Long term (current) use of anticoagulants; Z79.02 Long term (current) use of antithrombotics/antiplatelets; Z79.4 Long term (current) use of insulin; Z79.82 Long term (current) use of aspirin; Z79.899 Other long term (current) drug therapy; Z82.49 Family history of ischemic heart disease and other diseases of the circulatory system; Z83.3 Family history of diabetes mellitus; Z95.2 Presence of prosthetic heart valve; Z98.61 Coronary angioplasty status; Z88.8 Allergy status to other drugs, medicaments and biological substances; Z88.0 Allergy status to penicillin
CPT/HCPCS: 36415; 70450; 70551; 71045; 80053; 80061; 82962; 83036; 83735; 83880; 84100; 84484; 85025; 85379; 85610; 85730; 86141; 87081; 94640; 95819; 97110; 97116; 97163; 97530; G0378; J0696

== ENCOUNTER 2022-06-19 07:17 | Inpatient (IN) | payer MEDICARE, MEDICAID ==
[~2022-06-19] VITALS: Ht 175.3 cm; Wt 74.0 kg
[~2022-06-19 07:17] MED LIST changes: +ALB5IS NEB; +APIX5TAB PO; -ASPI1TAB19 PO; +ATOR40TA52; +BUPR75TA10 PO; +BUPR75TA98 PO; +CLOP75TA70; -FURO40TA4; +HYDR1SOL36; +KEP500T PO; +LEVE500T3 PO; -LEVEMIR SC; -LIRA18IN2 SUBCUT; -METF-490 PO; +METO25TA93 PO; +PANT40T; +POTA1TAB64; +SACU1TAB PO; +SENN-177 PO; +TORS20TA19 GT; -TRIAPOW43 PO
[2022-06-19 08:11] LABS: Basophils # (auto) 0.1 10 ^3/uL (0-0.2); Eosinophils # (auto) 0.2 10 ^3/uL (0-0.8); Hemoglobin 10.5 g/dL (13.5-17.5)
[2022-06-19 08:13] LABS: Hematocrit 34.9 % (41.0-53.0); Lymphocytes # (auto) 0.8 10 ^3/uL (0.4-5.4); Lymphocytes % (auto) 12.4 % (10.0-50.0); Mean Corpuscular Hgb Conc. 29.9 g/dL (32.0-36.0); Mean Corpuscular Volume 70.2 fL (80.0-100.0); Monocytes # (auto) 0.3 10 ^3/uL (0-1.3); Monocytes % (auto) 4.9 % (0.0-12.0); Neutrophils # (auto) 5.2 10 ^3/uL (1.6-8.6); Neutrophils % (auto) 78.7 % (37.0-80.0); Red Blood Cells 4.98 10^6/uL (4.5-5.90); White Blood Cell 6.6 10^3/uL (4.4-10.8)
[2022-06-19 08:23] LABS: Albumin 3.1 g/dL (3.4-5.0); Calcium 8.8 mg/dL (8.5-10.1)
[2022-06-19 08:26] LABS: BUN/Creatinine Ratio 18.1; Bilirubin, Total 0.7 mg/dL (0.2-1.0); Total Protein 6.7 g/dL (6.4-8.2)
[2022-06-19] MEDS ORDERED: levoFLOXacin 500MG 100 ML IV ONE (09:30)
[2022-06-19] MEDS ORDERED: ALBUTEROL SULF 2.5 MG/0.5ML(0.5%) NEB SOLN NEB PRN (09:45)
[2022-06-19] MEDS ORDERED: NITROGLYCERIN 0.4 MG SL TAB SL PRN ×2 (10:00→19:45)
[2022-06-19] MEDS: SENNA 8.6 MG TAB PO SCH (10:00)
[2022-06-19] MEDS: POTASSIUM CHLORIDE 8 MEQ TAB PO SCH (10:00)
[2022-06-19] MEDS ORDERED: LISINOPRIL 10 MG TAB PO SCH (10:00)
[2022-06-19] MEDS ORDERED: SACUBITRIL-VALSARTAN 24mg/26mg TAB PO SCH (10:00)
[2022-06-19] MEDS ORDERED: MORPHINE SULFATE INJ 2 MG/ml SYRG IV PRN ×3 (10:00→19:45)
[2022-06-19] MEDS ORDERED: SENNA 8.6 MG TAB ONE (11:01)
[2022-06-19] MEDS: FUROSEMIDE 20 MG/2 ML VIAL IV SCH (11:05)
[2022-06-19] MEDS: APIXABAN 5 MG TAB PO SCH ×2 (11:05→22:24)
[2022-06-19] MEDS: levETIRAcetam 500 MG TAB PO SCH ×2 (11:05→22:24)
[2022-06-19] MEDS: PANTOPRAZOLE 40 MG TAB PO SCH (11:06)
[2022-06-19 11:36] VITALS: BP 126/44
[2022-06-19] MEDS: cefTRIAXone 1GM/50ML D5W 50 ML IV SCH (12:35)
[2022-06-19] MEDS: SUCRALFATE 1 GM/10 ML ORAL SUSP GT SCH ×2 (12:36→17:15)
[2022-06-19 15:01] LABS: Urine Bacteria NONE SEEN /hpf (None Seen); Urine Blood Negative /uL (Negative); Urine Hyaline Cast FEW /lpf (0 - 2); Urine Mucus FEW (None Seen); Urine Specific Gravity 1.013 (1.001-1.035); Urine WBC 2 /hpf (0 - 3)
[2022-06-19] MEDS ORDERED: HYDROmorphone HCL 2 MG/ML VL/or syr IV PRN (18:15)
[2022-06-19] MEDS: HYDROmorphone HCL 2 MG/ML VL/or syr IV PRN (20:02)
[2022-06-19] MEDS: SACUBITRIL-VALSARTAN 24mg/26mg TAB PO SCH (22:24)
[2022-06-20] MEDS: HYDROmorphone HCL 2 MG/ML VL/or syr IV PRN ×4 (02:20→21:05)
[2022-06-20] MEDS: SUCRALFATE 1 GM/10 ML ORAL SUSP GT SCH ×3 (07:00→17:00)
[2022-06-20] MEDS: buPROPion HCL 75 MG TAB PO SCH (07:00)
[2022-06-20] MEDS ORDERED: ALBUTEROL MEDNEB 2.5 mg/3ml NEB ONE (07:14)
[2022-06-20 09:00] VITALS: BP 131/51
[2022-06-20] MEDS ORDERED: ASPirin 81 mg TAB PO SCH (10:00)
[2022-06-20] MEDS: SENNA 8.6 MG TAB PO SCH (10:00)
[2022-06-20] MEDS ORDERED: ENOXAPARIN SOD 40 MG/0.4 ML SYRINGE SC SCH (10:00)
[2022-06-20] MEDS: D5W/SOD CHL 0.45% 1,000 ML IV SCH ×2 (10:00→21:02)
[2022-06-20] MEDS: FUROSEMIDE 20 MG/2 ML VIAL IV SCH (10:00)
[2022-06-20] MEDS ORDERED: ALBUTEROL SULF NEB PRN (10:15)
[2022-06-20] MEDS: cefTRIAXone 1GM/50ML D5W 50 ML IV SCH (11:52)
[2022-06-20] MEDS: PANTOPRAZOLE 40 MG TAB PO SCH (11:53)
[2022-06-20] MEDS: levETIRAcetam 500 MG TAB PO SCH ×2 (11:53→21:01)
[2022-06-20] MEDS: SACUBITRIL-VALSARTAN 24mg/26mg TAB PO SCH ×2 (11:53→21:04)
[2022-06-20] MEDS: APIXABAN 5 MG TAB PO SCH ×2 (11:53→21:01)
[2022-06-20 12:34] VITALS: BP 131/51
[2022-06-20 13:00] VITALS: BP 128/80
[2022-06-20] MEDS ORDERED: CLOPIDOGREL BISULFATE 75 MG TAB PO SCH (14:00)
[2022-06-20] MEDS: POTASSIUM CHLORIDE 8 MEQ TAB PO SCH (14:13)
[2022-06-20] MEDS ORDERED: ALBUTEROL MEDNEB 2.5 mg/3ml NEB NEB PRN (14:15)
[2022-06-20 17:00] VITALS: BP 137/61
[2022-06-20] MEDS: ENOXAPARIN SOD 40 MG/0.4 ML SYRINGE SC SCH (21:02)
[2022-06-20 22:00] VITALS: BP 145/59
[2022-06-21] MEDS: buPROPion HCL 75 MG TAB PO SCH (05:05)
[2022-06-21] MEDS: SUCRALFATE 1 GM/10 ML ORAL SUSP GT SCH ×3 (05:05→17:00)
[2022-06-21] MEDS: HYDROmorphone HCL 2 MG/ML VL/or syr IV PRN ×5 (05:06→22:59)
[2022-06-21 05:40] VITALS: BP 135/60
[2022-06-21 08:07] LABS: Albumin 2.7 g/dL (3.4-5.0); Calcium 8.7 mg/dL (8.5-10.1); Magnesium 1.8 mg/dL (1.6-2.6); Potassium 3.6 mmol/L (3.5-5.1)
[2022-06-21 08:14] LABS: BUN/Creatinine Ratio 14.8; Bilirubin, Total 0.5 mg/dL (0.2-1.0); Phosphorus 2.5 mg/dL (2.5-4.90); Total Protein 6.1 g/dL (6.4-8.2)
[2022-06-21 08:15] LABS: Basophils # (auto) 0 10 ^3/uL (0-0.2); Eosinophils # (auto) 0.2 10 ^3/uL (0-0.8); Hemoglobin 11.2 g/dL (13.5-17.5); Lymphocytes # (auto) 1.2 10 ^3/uL (0.4-5.4); Monocytes # (auto) 0.5 10 ^3/uL (0-1.3); Neutrophils # (auto) 3.9 10 ^3/uL (1.6-8.6); Nucleated Red Blood Cells % 0.1 %
[2022-06-21 08:16] LABS: Basophils % (auto) 0.8 % (0.0-2.0); Eosinophils % (auto) 3.5 % (0.0-7.0); Hematocrit 36.7 % (41.0-53.0); Lymphocytes % (auto) 20.8 % (10.0-50.0); Mean Corpuscular Hemoglobin 21.2 pg (28.0-32.0); Mean Corpuscular Hgb Conc. 30.4 g/dL (32.0-36.0); Mean Corpuscular Volume 69.6 fL (80.0-100.0); Monocytes % (auto) 8.5 % (0.0-12.0); Neutrophils % (auto) 66.4 % (37.0-80.0); Red Blood Cells 5.28 10^6/uL (4.5-5.90); White Blood Cell 5.9 10^3/uL (4.4-10.8)
[2022-06-21 08:19] LABS: Red Cell Distribution Width 20.2 % (11.8-14.3)
[2022-06-21 09:00] VITALS: BP 150/57
[2022-06-21] MEDS: levETIRAcetam 500 MG TAB PO SCH ×2 (09:25→20:38)
[2022-06-21] MEDS: POTASSIUM CHLORIDE 8 MEQ TAB PO SCH (09:25)
[2022-06-21] MEDS: PANTOPRAZOLE 40 MG TAB PO SCH (09:25)
[2022-06-21] MEDS: APIXABAN 5 MG TAB PO SCH ×2 (09:25→20:37)
[2022-06-21] MEDS: SACUBITRIL-VALSARTAN 24mg/26mg TAB PO SCH ×2 (09:25→20:37)
[2022-06-21] MEDS: cefTRIAXone 1GM/50ML D5W 50 ML IV SCH (09:26)
[2022-06-21] MEDS: FUROSEMIDE 20 MG/2 ML VIAL IV SCH (09:36)
[2022-06-21] MEDS: SENNA 8.6 MG TAB PO SCH (09:37)
[2022-06-21 13:00] VITALS: BP 114/60
[2022-06-21] MEDS: CLOPIDOGREL BISULFATE 75 MG TAB PO SCH (13:57)
[2022-06-21] MEDS: D5W/SOD CHL 0.45% 1,000 ML IV SCH ×2 (13:59→23:30)
[2022-06-21 16:42] VITALS: BP 167/63
[2022-06-21] MEDS: ENOXAPARIN SOD 40 MG/0.4 ML SYRINGE SC SCH (20:37)
[2022-06-21] MEDS ORDERED: LORazepam 2MG/ML-1ML VIAL IV PRN (21:30)
[2022-06-21 22:00] VITALS: BP 136/50
[2022-06-22] MEDS: D5W/SOD CHL 0.45% 1,000 ML IV SCH ×2 (05:27→21:54)
[2022-06-22 05:57] VITALS: BP 127/53
[2022-06-22] MEDS: SUCRALFATE 1 GM/10 ML ORAL SUSP GT SCH ×3 (06:37→17:04)
[2022-06-22] MEDS: buPROPion HCL 75 MG TAB PO SCH (06:37)
[2022-06-22 09:00] VITALS: BP 133/55
[2022-06-22] MEDS: POTASSIUM CHLORIDE 8 MEQ TAB PO SCH (10:00)
[2022-06-22] MEDS: FUROSEMIDE 20 MG/2 ML VIAL IV SCH (10:32)
[2022-06-22] MEDS: cefTRIAXone 1GM/50ML D5W 50 ML IV SCH (10:32)
[2022-06-22] MEDS: levETIRAcetam 500 MG TAB PO SCH ×2 (10:33→21:14)
[2022-06-22] MEDS: AZITHROMYCIN 250 MG TAB PO SCH (10:33)
[2022-06-22] MEDS: PANTOPRAZOLE 40 MG TAB PO SCH (10:33)
[2022-06-22] MEDS: SACUBITRIL-VALSARTAN 24mg/26mg TAB PO SCH ×2 (10:33→21:14)
[2022-06-22] MEDS: APIXABAN 5 MG TAB PO SCH ×2 (10:34→21:15)
[2022-06-22] MEDS: HYDROmorphone HCL 2 MG/ML VL/or syr IV PRN ×3 (12:03→21:14)
[2022-06-22] MEDS: SENNA 8.6 MG TAB PO SCH (12:03)
[2022-06-22 13:00] VITALS: BP 128/62
[2022-06-22] MEDS: CLOPIDOGREL BISULFATE 75 MG TAB PO SCH ×2 (14:00→14:47)
[2022-06-22 16:33] LABS: Folate (Folic Acid) 10.47 ng/mL (5.38-24)
[2022-06-22 16:56] VITALS: BP 142/66
[2022-06-22 22:00] VITALS: BP 148/59
[2022-06-23] MEDS: HYDROmorphone HCL 2 MG/ML VL/or syr IV PRN ×4 (04:54→21:39)
[2022-06-23 05:00] VITALS: BP 129/49
[2022-06-23] MEDS: buPROPion HCL 75 MG TAB PO SCH (06:15)
[2022-06-23] MEDS: SUCRALFATE 1 GM/10 ML ORAL SUSP GT SCH ×3 (06:15→17:24)
[2022-06-23 06:25] LABS: Albumin 2.6 g/dL (3.4-5.0); Calcium 8.1 mg/dL (8.5-10.1); Magnesium 1.8 mg/dL (1.6-2.6); Potassium 3.8 mmol/L (3.5-5.1)
[2022-06-23 06:29] LABS: Basophils # (auto) 0 10 ^3/uL (0-0.2); Basophils % (auto) 0.4 % (0.0-2.0); Bilirubin, Total 0.5 mg/dL (0.2-1.0); Eosinophils # (auto) 0.1 10 ^3/uL (0-0.8); Eosinophils % (auto) 2.5 % (0.0-7.0); Hematocrit 39.9 % (41.0-53.0); Hemoglobin 11.6 g/dL (13.5-17.5); Lymphocytes # (auto) 0.8 10 ^3/uL (0.4-5.4); Lymphocytes % (auto) 14.2 % (10.0-50.0); Mean Corpuscular Hemoglobin 21.6 pg (28.0-32.0); Mean Corpuscular Volume 74.4 fL (80.0-100.0); Monocytes # (auto) 0.5 10 ^3/uL (0-1.3); Monocytes % (auto) 7.9 % (0.0-12.0); Neutrophils # (auto) 4.4 10 ^3/uL (1.6-8.6); Nucleated Red Blood Cells % 0.1 %; Red Blood Cells 5.36 10^6/uL (4.5-5.90); Total Protein 5.6 g/dL (6.4-8.2); White Blood Cell 5.8 10^3/uL (4.4-10.8)
[2022-06-23 06:34] LABS: Red Cell Distribution Width 20.8 % (11.8-14.3)
[2022-06-23 09:00] VITALS: BP 128/54
[2022-06-23] MEDS: cefTRIAXone 1GM/50ML D5W 50 ML IV SCH (09:11)
[2022-06-23] MEDS: FUROSEMIDE 20 MG/2 ML VIAL IV SCH (09:12)
[2022-06-23] MEDS: levETIRAcetam 500 MG TAB PO SCH ×2 (09:13→21:40)
[2022-06-23] MEDS: APIXABAN 5 MG TAB PO SCH ×2 (09:13→21:39)
[2022-06-23] MEDS: AZITHROMYCIN 250 MG TAB PO SCH (09:13)
[2022-06-23] MEDS: SACUBITRIL-VALSARTAN 24mg/26mg TAB PO SCH ×2 (09:13→21:39)
[2022-06-23] MEDS: SENNA 8.6 MG TAB PO SCH (09:14)
[2022-06-23] MEDS: PANTOPRAZOLE 40 MG TAB PO SCH (09:14)
[2022-06-23] MEDS: POTASSIUM CHLORIDE 8 MEQ TAB PO SCH (09:33)
[2022-06-23 13:00] VITALS: BP 119/53
[2022-06-23] MEDS: D5W/SOD CHL 0.45% 1,000 ML IV SCH (13:00)
[2022-06-23] MEDS: CLOPIDOGREL BISULFATE 75 MG TAB PO SCH (15:17)
[2022-06-23 17:00] VITALS: BP 133/61
[2022-06-23] MEDS ORDERED: NITROGLYCERIN 0.2MG/HR TOPICAL PATCH TD ONE (20:45)
[2022-06-23 22:00] VITALS: BP 132/62
[2022-06-24] VITALS (53 sets, daily range): BP systolic 112–153; BP diastolic 47–90
[2022-06-24] MEDS ORDERED: FUROSEMIDE 20 MG/2 ML VIAL IV ONE ×3 (01:00→06:30)
[2022-06-24] MEDS ORDERED: ENOXAPARIN SOD 60 MG/0.6 ML SYRINGE SC ONE (01:00)
[2022-06-24] MEDS: D5W/SOD CHL 0.45% 1,000 ML IV SCH ×2 (01:25→14:08)
[2022-06-24] MEDS ORDERED: HEPARIN DRIP/D5W 100UNITS/ML 250 ML IV SCH ×3 (01:30→11:15)
[2022-06-24] MEDS ORDERED: HEPARIN SODIUM (PORCINE) 5000 UNITS/ML 1ML VIAL IV ONE (01:45)
[2022-06-24 02:11] LABS: INR 1.39 (0.9-1.15); Partial Thromboplastin Time 40.6 sec (24.6-33.4)
[2022-06-24] MEDS: HYDROmorphone HCL 2 MG/ML VL/or syr IV PRN ×4 (04:28→20:51)
[2022-06-24] MEDS: buPROPion HCL 75 MG TAB PO SCH ×2 (07:00→09:43)
[2022-06-24] MEDS: SUCRALFATE 1 GM/10 ML ORAL SUSP GT SCH ×4 (07:00→17:00)
[2022-06-24 07:53] LABS: Eosinophils # (auto) 0.1 10 ^3/uL (0-0.8); Hemoglobin 12.5 g/dL (13.5-17.5); Nucleated Red Blood Cells % 0.1 %
[2022-06-24 07:55] LABS: Basophils # (auto) 0 10 ^3/uL (0-0.2); Basophils % (auto) 0.7 % (0.0-2.0); Eosinophils % (auto) 1.8 % (0.0-7.0); Hematocrit 39.5 % (41.0-53.0); Lymphocytes # (auto) 0.7 10 ^3/uL (0.4-5.4); Lymphocytes % (auto) 11.8 % (10.0-50.0); Mean Corpuscular Hemoglobin 21.9 pg (28.0-32.0); Mean Corpuscular Hgb Conc. 31.7 g/dL (32.0-36.0); Mean Corpuscular Volume 69.1 fL (80.0-100.0); Monocytes # (auto) 0.5 10 ^3/uL (0-1.3); Monocytes % (auto) 7.8 % (0.0-12.0); Neutrophils # (auto) 4.9 10 ^3/uL (1.6-8.6); Neutrophils % (auto) 77.9 % (37.0-80.0); Red Blood Cells 5.71 10^6/uL (4.5-5.90); Red Cell Distribution Width 19.6 % (11.8-14.3); White Blood Cell 6.3 10^3/uL (4.4-10.8)
[2022-06-24 08:04] LABS: Albumin 2.8 g/dL (3.4-5.0); Calcium 8.6 mg/dL (8.5-10.1); Potassium 3.2 mmol/L (3.5-5.1)
[2022-06-24 08:08] LABS: Bilirubin, Total 0.5 mg/dL (0.2-1.0); Total Protein 6.6 g/dL (6.4-8.2)
[2022-06-24] MEDS: FUROSEMIDE 20 MG/2 ML VIAL IV SCH (09:41)
[2022-06-24] MEDS: APIXABAN 5 MG TAB PO SCH ×2 (09:43→10:00)
[2022-06-24] MEDS: SACUBITRIL-VALSARTAN 24mg/26mg TAB PO SCH ×3 (09:43→22:29)
[2022-06-24] MEDS: NITROGLYCERIN 0.2MG/HR TOPICAL PATCH TD SCH (09:43)
[2022-06-24] MEDS: levETIRAcetam 500 MG TAB PO SCH ×3 (09:43→22:30)
[2022-06-24] MEDS: PANTOPRAZOLE 40 MG TAB PO SCH ×2 (09:44→10:00)
[2022-06-24] MEDS: AZITHROMYCIN 250 MG TAB PO SCH ×2 (09:44→10:00)
[2022-06-24] MEDS: POTASSIUM CHLORIDE 8 MEQ TAB PO SCH ×2 (09:44→10:00)
[2022-06-24] MEDS: SENNA 8.6 MG TAB PO SCH ×2 (09:44→10:00)
[2022-06-24] MEDS: cefTRIAXone 1GM/50ML D5W 50 ML IV SCH (09:45)
[2022-06-24] MEDS ORDERED: ENOXAPARIN SOD 40 MG/0.4 ML SYRINGE SC SCH (10:00)
[2022-06-24] MEDS ORDERED: ENOXAPARIN SOD 100 MG/1 ML SYRINGE SC SCH (10:00)
[2022-06-24 10:34] LABS: INR 1.46 (0.9-1.15)
[2022-06-24 10:54] LABS: Partial Thromboplastin Time 98.3 sec (24.6-33.4)
[2022-06-24] MEDS ORDERED: POTASSIUM CHL 20MEQ/100ML 100 ML IV ONE (13:15)
[2022-06-24 13:28] LABS: Magnesium 1.5 mg/dL (1.6-2.6); Phosphorus 2.5 mg/dL (2.5-4.90)
[2022-06-24] MEDS: CLOPIDOGREL BISULFATE 75 MG TAB PO SCH (14:13)
[2022-06-24 18:17] LABS: INR 1.4 (0.9-1.15); Partial Thromboplastin Time 64.4 sec (24.6-33.4)
[2022-06-25] VITALS (52 sets, daily range): BP systolic 103–152; BP diastolic 33–74
[2022-06-25 00:58] LABS: INR 1.32 (0.9-1.15); Partial Thromboplastin Time 69.6 sec (24.6-33.4)
[2022-06-25] MEDS: D5W/SOD CHL 0.45% 1,000 ML IV SCH ×2 (02:30→15:00)
[2022-06-25] MEDS: HYDROmorphone HCL 2 MG/ML VL/or syr IV PRN ×5 (03:32→22:09)
[2022-06-25] MEDS: SUCRALFATE 1 GM/10 ML ORAL SUSP GT SCH ×3 (06:32→18:29)
[2022-06-25] MEDS: buPROPion HCL 75 MG TAB PO SCH (06:33)
[2022-06-25] MEDS: SACUBITRIL-VALSARTAN 24mg/26mg TAB PO SCH ×2 (09:56→22:09)
[2022-06-25] MEDS: AZITHROMYCIN 250 MG TAB PO SCH (09:56)
[2022-06-25] MEDS: SENNA 8.6 MG TAB PO SCH (09:56)
[2022-06-25] MEDS: NITROGLYCERIN 0.2MG/HR TOPICAL PATCH TD SCH (09:57)
[2022-06-25] MEDS: levETIRAcetam 500 MG TAB PO SCH ×2 (09:57→22:10)
[2022-06-25] MEDS: PANTOPRAZOLE 40 MG TAB PO SCH (09:57)
[2022-06-25] MEDS: cefTRIAXone 1GM/50ML D5W 50 ML IV SCH (10:00)
[2022-06-25 10:02] LABS: INR 1.33 (0.9-1.15); Partial Thromboplastin Time 58.4 sec (24.6-33.4)
[2022-06-25 10:03] LABS: Calcium 8.4 mg/dL (8.5-10.1); Magnesium 1.7 mg/dL (1.6-2.6); Phosphorus 2.5 mg/dL (2.5-4.90); Potassium 3.1 mmol/L (3.5-5.1)
[2022-06-25] MEDS: POTASSIUM CHLORIDE 8 MEQ TAB PO SCH (10:36)
[2022-06-25] MEDS: FUROSEMIDE 20 MG/2 ML VIAL IV SCH (10:36)
[2022-06-25] MEDS: HEPARIN DRIP/D5W 100UNITS/ML 250 ML IV SCH (11:30)
[2022-06-25] MEDS: CLOPIDOGREL BISULFATE 75 MG TAB PO SCH (14:14)
[2022-06-25] MEDS: POTASSIUM CHL 20 Meq TABLET PO SCH ×2 (14:14→18:00)
[2022-06-26] MEDS ORDERED: MAGNESIUM SULFATE 1GM/100ML 100 ML IV ONE
[2022-06-26] MEDS: POTASSIUM CHL 20 Meq TABLET PO SCH ×4 (00:02→17:04)
[2022-06-26 01:00] VITALS: BP_SYST 122; BP_SYST 133; BP_DIAS 58
[2022-06-26] MEDS: D5W/SOD CHL 0.45% 1,000 ML IV SCH ×3 (03:30→23:21)
[2022-06-26 04:36] LABS: INR 1.2 (0.9-1.15); Partial Thromboplastin Time 68.7 sec (24.6-33.4)
[2022-06-26] MEDS: SUCRALFATE 1 GM/10 ML ORAL SUSP GT SCH ×3 (06:32→17:03)
[2022-06-26] MEDS: buPROPion HCL 75 MG TAB PO SCH (06:33)
[2022-06-26] MEDS: HYDROmorphone HCL 2 MG/ML VL/or syr IV PRN ×2 (07:00→20:18)
[2022-06-26 08:00] VITALS: BP 119/71
[2022-06-26 09:34] LABS: Eosinophils # (auto) 0.2 10 ^3/uL (0-0.8); Monocytes # (auto) 0.5 10 ^3/uL (0-1.3); Neutrophils # (auto) 2.8 10 ^3/uL (1.6-8.6); White Blood Cell 4.5 10^3/uL (4.4-10.8)
[2022-06-26 09:35] LABS: Basophils # (auto) 0.1 10 ^3/uL (0-0.2); Basophils % (auto) 1.9 % (0.0-2.0); Eosinophils % (auto) 4.6 % (0.0-7.0); Hematocrit 34.2 % (41.0-53.0); Lymphocytes # (auto) 0.9 10 ^3/uL (0.4-5.4); Lymphocytes % (auto) 20.9 % (10.0-50.0); Mean Corpuscular Volume 68.8 fL (80.0-100.0); Neutrophils % (auto) 61.6 % (37.0-80.0); Red Blood Cells 4.97 10^6/uL (4.5-5.90); Red Cell Distribution Width 19.9 % (11.8-14.3)
[2022-06-26 09:48] LABS: Albumin 2.7 g/dL (3.4-5.0); Magnesium 1.6 mg/dL (1.6-2.6); Potassium 3.7 mmol/L (3.5-5.1)
[2022-06-26 09:52] LABS: Bilirubin, Total 0.5 mg/dL (0.2-1.0); Total Protein 5.5 g/dL (6.4-8.2)
[2022-06-26] MEDS: MAGNESIUM SULFATE 1 GM/100 ML IV SCH ×6 (10:07→15:19)
[2022-06-26] MEDS: NITROGLYCERIN 0.2MG/HR TOPICAL PATCH TD SCH (11:24)
[2022-06-26] MEDS: FUROSEMIDE 20 MG/2 ML VIAL IV SCH (11:25)
[2022-06-26] MEDS: PANTOPRAZOLE 40 MG TAB PO SCH (11:25)
[2022-06-26] MEDS: levETIRAcetam 500 MG TAB PO SCH ×2 (11:25→22:12)
[2022-06-26] MEDS: AZITHROMYCIN 250 MG TAB PO SCH (11:26)
[2022-06-26] MEDS: SACUBITRIL-VALSARTAN 24mg/26mg TAB PO SCH ×2 (11:26→22:12)
[2022-06-26] MEDS: SENNA 8.6 MG TAB PO SCH (11:26)
[2022-06-26] MEDS: cefTRIAXone 1GM/50ML D5W 50 ML IV SCH (11:27)
[2022-06-26 12:00] VITALS: BP 113/51
[2022-06-26] MEDS: MAGNESIUM SULFATE 1GM/100ML 200 ML IV SCH ×2 (12:24→13:18)
[2022-06-26] MEDS: CLOPIDOGREL BISULFATE 75 MG TAB PO SCH (13:05)
[2022-06-26 16:00] VITALS: BP 100/50
[2022-06-26] MEDS: HEPARIN DRIP/D5W 100UNITS/ML 250 ML IV SCH (16:43)
[2022-06-26 22:00] VITALS: BP 136/67
[2022-06-27] MEDS: POTASSIUM CHL 20 Meq TABLET PO SCH ×4 (00:32→18:11)
[2022-06-27] MEDS: HYDROmorphone HCL 2 MG/ML VL/or syr IV PRN ×4 (00:52→20:26)
[2022-06-27 05:00] VITALS: BP 128/47
[2022-06-27] MEDS: SUCRALFATE 1 GM/10 ML ORAL SUSP GT SCH ×3 (06:23→18:11)
[2022-06-27] MEDS: buPROPion HCL 75 MG TAB PO SCH (06:23)
[2022-06-27 08:57] LABS: INR 1.17 (0.9-1.15)
[2022-06-27 09:00] VITALS: BP 124/51
[2022-06-27 09:10] LABS: Basophils # (auto) 0 10 ^3/uL (0-0.2); Eosinophils # (auto) 0.2 10 ^3/uL (0-0.8); Hemoglobin 10.5 g/dL (13.5-17.5); Lymphocytes # (auto) 1.2 10 ^3/uL (0.4-5.4); Mean Corpuscular Hemoglobin 21.6 pg (28.0-32.0)
[2022-06-27 09:11] LABS: Basophils % (auto) 0.6 % (0.0-2.0); Hematocrit 33.5 % (41.0-53.0); Mean Corpuscular Hgb Conc. 31.4 g/dL (32.0-36.0); Mean Corpuscular Volume 68.9 fL (80.0-100.0); Monocytes # (auto) 0.4 10 ^3/uL (0-1.3); Monocytes % (auto) 9.6 % (0.0-12.0); Neutrophils # (auto) 2.7 10 ^3/uL (1.6-8.6); Neutrophils % (auto) 58.8 % (37.0-80.0); Red Blood Cells 4.86 10^6/uL (4.5-5.90); Red Cell Distribution Width 19.8 % (11.8-14.3); White Blood Cell 4.6 10^3/uL (4.4-10.8)
[2022-06-27 09:30] LABS: Partial Thromboplastin Time 72.6 sec (24.6-33.4)
[2022-06-27 09:56] LABS: Anion Gap 8 (5-15); Blood Urea Nitrogen 7 mg/dL (7-18); Carbon Dioxide 26 mmol/L (21-32); Chloride 108 mmol/L (98-107); Glucose 113 mg/dL (74-106); Potassium 4.2 mmol/L (3.5-5.1); Sodium 142 mmol/L (136-145)
[2022-06-27 09:57] LABS: Alanine Aminotransferase 8 U/L (16-61); Alkaline Phosphatase 91 U/L (45-117); Aspartate Aminotransferase 10 U/L (15-37); BUN/Creatinine Ratio 13.5; Calcium 8.2 mg/dL (8.5-10.1); GFR African American 204 mL/min; GFR Non-African American 168 mL/min
[2022-06-27 09:58] LABS: Albumin 2.7 g/dL (3.4-5.0); Bilirubin, Total 0.2 mg/dL (0.2-1.0); Phosphorus 2.6 mg/dL (2.5-4.90); Total Protein 5.7 g/dL (6.4-8.2)
[2022-06-27] MEDS: HEPARIN DRIP/D5W 100UNITS/ML 250 ML IV SCH (11:30)
[2022-06-27] MEDS: SACUBITRIL-VALSARTAN 24mg/26mg TAB PO SCH ×2 (12:50→22:30)
[2022-06-27] MEDS: FUROSEMIDE 20 MG/2 ML VIAL IV SCH (12:50)
[2022-06-27] MEDS: levETIRAcetam 500 MG TAB PO SCH ×2 (12:50→22:30)
[2022-06-27] MEDS: PANTOPRAZOLE 40 MG TAB PO SCH (12:50)
[2022-06-27] MEDS: NITROGLYCERIN 0.2MG/HR TOPICAL PATCH TD SCH (12:51)
[2022-06-27] MEDS: SENNA 8.6 MG TAB PO SCH (12:51)
[2022-06-27] MEDS: CLOPIDOGREL BISULFATE 75 MG TAB PO SCH (12:56)
[2022-06-27 13:00] VITALS: BP 121/56
[2022-06-27 17:00] VITALS: BP 113/47
[2022-06-27 22:00] VITALS: BP 146/50
[2022-06-27] MEDS: D5W/SOD CHL 0.45% 1,000 ML IV SCH (22:45)
[2022-06-28] MEDS: POTASSIUM CHL 20 Meq TABLET PO SCH ×4 (00:36→18:45)
[2022-06-28 05:00] VITALS: BP 124/67
[2022-06-28] MEDS: buPROPion HCL 75 MG TAB PO SCH (06:13)
[2022-06-28] MEDS: SUCRALFATE 1 GM/10 ML ORAL SUSP GT SCH ×3 (06:13→18:45)
[2022-06-28 07:36] LABS: INR 1.14 (0.9-1.15); Partial Thromboplastin Time 47.7 sec (24.6-33.4)
[2022-06-28 07:53] LABS: Albumin 2.7 g/dL (3.4-5.0); Calcium 9.1 mg/dL (8.5-10.1); Potassium 4.2 mmol/L (3.5-5.1)
[2022-06-28 07:55] LABS: BUN/Creatinine Ratio 10.7
[2022-06-28 07:57] LABS: Bilirubin, Total 0.3 mg/dL (0.2-1.0); Total Protein 6.3 g/dL (6.4-8.2)
[2022-06-28] MEDS: SACUBITRIL-VALSARTAN 24mg/26mg TAB PO SCH ×3 (08:51→22:32)
[2022-06-28] MEDS: FUROSEMIDE 20 MG/2 ML VIAL IV SCH (08:51)
[2022-06-28] MEDS: PANTOPRAZOLE 40 MG TAB PO SCH (08:52)
[2022-06-28] MEDS: levETIRAcetam 500 MG TAB PO SCH ×2 (08:52→22:32)
[2022-06-28] MEDS: SENNA 8.6 MG TAB PO SCH ×2 (08:52→09:34)
[2022-06-28] MEDS: NITROGLYCERIN 0.2MG/HR TOPICAL PATCH TD SCH (08:54)
[2022-06-28 09:04] VITALS: BP 132/64
[2022-06-28] MEDS: HEPARIN DRIP/D5W 100UNITS/ML 250 ML IV SCH (09:12)
[2022-06-28] MEDS: HYDROmorphone HCL 2 MG/ML VL/or syr IV PRN ×4 (09:33→22:32)
[2022-06-28 13:00] VITALS: BP 114/46
[2022-06-28] MEDS: CLOPIDOGREL BISULFATE 75 MG TAB PO SCH (13:17)
[2022-06-28 15:48] LABS: INR 1.16 (0.9-1.15); Partial Thromboplastin Time 61.7 sec (24.6-33.4)
[2022-06-28 17:00] VITALS: BP 121/47
[2022-06-28 22:00] VITALS: BP 131/60
[2022-06-28 22:35] LABS: INR 1.15 (0.9-1.15)
[2022-06-28] MEDS: D5W/SOD CHL 0.45% 1,000 ML IV SCH (22:45)
[2022-06-29] VITALS (8 sets, daily range): BP systolic 126–138; BP diastolic 51–79
[2022-06-29] MEDS: HYDROmorphone HCL 2 MG/ML VL/or syr IV PRN ×4 (03:21→22:20)
[2022-06-29 03:29] LABS: INR 1.16 (0.9-1.15); Partial Thromboplastin Time 66.9 sec (24.6-33.4)
[2022-06-29] MEDS: POTASSIUM CHL 20 Meq TABLET PO SCH ×5 (06:00→23:08)
[2022-06-29] MEDS: buPROPion HCL 75 MG TAB PO SCH (07:00)
[2022-06-29] MEDS: SUCRALFATE 1 GM/10 ML ORAL SUSP GT SCH ×3 (07:00→17:00)
[2022-06-29 07:52] LABS: Urine Bacteria NONE SEEN /hpf (None Seen); Urine Blood Negative /uL (Negative); Urine Specific Gravity 1.011 (1.001-1.035); Urine WBC 2 /hpf (0 - 3)
[2022-06-29] MEDS: FUROSEMIDE 20 MG/2 ML VIAL IV SCH (08:56)
[2022-06-29] MEDS: PANTOPRAZOLE 40 MG TAB PO SCH (08:57)
[2022-06-29] MEDS: SACUBITRIL-VALSARTAN 24mg/26mg TAB PO SCH ×2 (08:57→22:18)
[2022-06-29] MEDS: SENNA 8.6 MG TAB PO SCH ×2 (08:57→09:25)
[2022-06-29] MEDS: levETIRAcetam 500 MG TAB PO SCH ×2 (08:57→22:18)
[2022-06-29] MEDS: NITROGLYCERIN 0.2MG/HR TOPICAL PATCH TD SCH (08:58)
[2022-06-29 10:26] LABS: INR 1.14 (0.9-1.15); Partial Thromboplastin Time 69.3 sec (24.6-33.4)
[2022-06-29] MEDS: HEPARIN DRIP/D5W 100UNITS/ML 250 ML IV SCH (11:30)
[2022-06-29] MEDS: CLOPIDOGREL BISULFATE 75 MG TAB PO SCH (12:11)
[2022-06-29] MEDS ORDERED: VERAPAMIL 2.5MG/ML INJ 2ML VIAL IV ONE (17:16)
[2022-06-29] MEDS ORDERED: ANGIOMAX 250 MG VIAL IV ONE (17:16)
[2022-06-29] MEDS ORDERED: fentaNYL CITRATE 100 MCG/2 ML VL ONE (17:16)
[2022-06-29] MEDS ORDERED: HEPARIN SODIUM (PORCINE) 5000 UNITS/ML 1ML VIAL ONE (17:16)
[2022-06-29] MEDS ORDERED: LIDOCAINE 2%HCL (LOCAL ANESTH.) INJ 20ML MDV ONE (17:17)
[2022-06-29] MEDS ORDERED: SODIUM CHL 0.9% 50 ML ONE (17:17)
[2022-06-29] MEDS ORDERED: MIDAZOLAM HCL 2MG/2ML 2ml VIAL (1mg/ml) ONE (17:17)
[2022-06-29] MEDS ORDERED: ATROPINE SULF 1 MG/10ml SYR ONE (18:13)
[2022-06-29] MEDS ORDERED: IODIXANOL 320MG/ML 100ML BTL IV ONE (18:13)
[2022-06-29] MEDS ORDERED: ASPirin 81 mg TAB ONE (18:33)
[2022-06-29] MEDS: ATORVASTATIN 20 MG TAB PO SCH (22:17)
[2022-06-29] MEDS: METOPROLOL TARTRATE 25 MG TAB PO SCH (22:23)
[2022-06-29] MEDS: D5W/SOD CHL 0.45% 1,000 ML IV SCH (22:27)
[2022-06-30] MEDS ORDERED: ALBUTEROL SULF 2.5 MG/0.5ML(0.5%) NEB SOLN NEB PRN (01:30)
[2022-06-30] MEDS ORDERED: ALBUTEROL MEDNEB 2.5 mg/3ml NEB ONE (01:32)
[2022-06-30 01:45] VITALS: BP 130/80
[2022-06-30] MEDS: HYDROmorphone HCL 2 MG/ML VL/or syr IV PRN ×3 (03:39→16:08)
[2022-06-30 05:00] VITALS: BP 125/53
[2022-06-30] MEDS: buPROPion HCL 75 MG TAB PO SCH (05:56)
[2022-06-30] MEDS: SUCRALFATE 1 GM/10 ML ORAL SUSP GT SCH ×3 (05:56→17:18)
[2022-06-30 07:17] LABS: INR 1.19 (0.9-1.15); Partial Thromboplastin Time 46.1 sec (24.6-33.4)
[2022-06-30 07:26] LABS: Basophils # (auto) 0 10 ^3/uL (0-0.2); Basophils % (auto) 0.4 % (0.0-2.0); Eosinophils # (auto) 0.1 10 ^3/uL (0-0.8); Eosinophils % (auto) 2.3 % (0.0-7.0); Hematocrit 34.4 % (41.0-53.0); Hemoglobin 10.8 g/dL (13.5-17.5); Lymphocytes # (auto) 1.2 10 ^3/uL (0.4-5.4); Lymphocytes % (auto) 22.3 % (10.0-50.0); Mean Corpuscular Hemoglobin 21.9 pg (28.0-32.0); Mean Corpuscular Hgb Conc. 31.5 g/dL (32.0-36.0); Mean Corpuscular Volume 69.5 fL (80.0-100.0); Monocytes # (auto) 0.4 10 ^3/uL (0-1.3); Monocytes % (auto) 8.4 % (0.0-12.0); Neutrophils # (auto) 3.5 10 ^3/uL (1.6-8.6); Neutrophils % (auto) 66.6 % (37.0-80.0); Nucleated Red Blood Cells % 0.1 %; Red Blood Cells 4.94 10^6/uL (4.5-5.90); Red Cell Distribution Width 19.2 % (11.8-14.3); White Blood Cell 5.3 10^3/uL (4.4-10.8)
[2022-06-30 07:50] LABS: Albumin 2.9 g/dL (3.4-5.0); BUN/Creatinine Ratio 12.2; Calcium 8.9 mg/dL (8.5-10.1); Potassium 4.3 mmol/L (3.5-5.1)
[2022-06-30 07:57] LABS: Bilirubin, Total 0.5 mg/dL (0.2-1.0)
[2022-06-30 09:12] VITALS: BP 109/44
[2022-06-30] MEDS: levETIRAcetam 500 MG TAB PO SCH ×2 (09:49→21:55)
[2022-06-30] MEDS: SENNA 8.6 MG TAB PO SCH (09:49)
[2022-06-30] MEDS: ASPirin 81 mg TAB PO SCH (09:50)
[2022-06-30] MEDS: SACUBITRIL-VALSARTAN 24mg/26mg TAB PO SCH ×2 (09:50→21:55)
[2022-06-30] MEDS: FUROSEMIDE 20 MG/2 ML VIAL IV SCH (09:52)
[2022-06-30] MEDS: PANTOPRAZOLE 40 MG TAB PO SCH (09:52)
[2022-06-30] MEDS: METOPROLOL TARTRATE 25 MG TAB PO SCH ×2 (10:00→21:56)
[2022-06-30] MEDS: NITROGLYCERIN 0.2MG/HR TOPICAL PATCH TD SCH (10:00)
[2022-06-30 13:19] VITALS: BP 109/49
[2022-06-30] MEDS: CLOPIDOGREL BISULFATE 75 MG TAB PO SCH (14:24)
[2022-06-30 17:28] VITALS: BP 120/49
[2022-06-30] MEDS: ATORVASTATIN 20 MG TAB PO SCH (21:55)
[2022-06-30] MEDS: D5W/SOD CHL 0.45% 1,000 ML IV SCH (21:56)
[2022-06-30 22:00] VITALS: BP 116/59
[2022-07-01] MEDS: HYDROmorphone HCL 2 MG/ML VL/or syr IV PRN ×5 (01:01→18:35)
[2022-07-01 05:00] VITALS: BP 111/43
[2022-07-01] MEDS: buPROPion HCL 75 MG TAB PO SCH (05:58)
[2022-07-01] MEDS: SUCRALFATE 1 GM/10 ML ORAL SUSP GT SCH ×3 (05:58→17:06)
[2022-07-01 08:00] VITALS: BP 136/53
[2022-07-01] MEDS: SACUBITRIL-VALSARTAN 24mg/26mg TAB PO SCH ×2 (09:33→22:03)
[2022-07-01] MEDS: SENNA 8.6 MG TAB PO SCH (09:33)
[2022-07-01] MEDS: PANTOPRAZOLE 40 MG TAB PO SCH (09:33)
[2022-07-01] MEDS: ASPirin 81 mg TAB PO SCH (09:34)
[2022-07-01] MEDS: levETIRAcetam 500 MG TAB PO SCH ×2 (09:34→22:03)
[2022-07-01] MEDS: METOPROLOL TARTRATE 25 MG TAB PO SCH ×2 (09:35→22:00)
[2022-07-01] MEDS: NITROGLYCERIN 0.2MG/HR TOPICAL PATCH TD SCH (09:36)
[2022-07-01] MEDS: FUROSEMIDE 20 MG/2 ML VIAL IV SCH (09:38)
[2022-07-01 12:00] VITALS: BP 119/47
[2022-07-01] MEDS: APIXABAN 5 MG TAB PO SCH ×2 (12:04→22:04)
[2022-07-01] MEDS: CLOPIDOGREL BISULFATE 75 MG TAB PO SCH (13:38)
[2022-07-01 16:00] VITALS: BP 119/37
[2022-07-01 22:00] VITALS: BP 110/47
[2022-07-01] MEDS ORDERED: LACTULOSE 20Gm/30ML SOLN PO ONE (22:00)
[2022-07-01] MEDS: ATORVASTATIN 20 MG TAB PO SCH (22:03)
[2022-07-01] MEDS: D5W/SOD CHL 0.45% 1,000 ML IV SCH (22:06)
[2022-07-02] VITALS (7 sets, daily range): BP systolic 107–136; BP diastolic 47–65
[2022-07-02] MEDS: HYDROmorphone HCL 2 MG/ML VL/or syr IV PRN (00:41)
[2022-07-02] MEDS: buPROPion HCL 75 MG TAB PO SCH (06:06)
[2022-07-02] MEDS: SUCRALFATE 1 GM/10 ML ORAL SUSP GT SCH ×3 (06:06→17:30)
[2022-07-02] MEDS: Glucerna Carbsteady SHAKE Vanilla 8oz PO SCH ×2 (10:00→22:00)
[2022-07-02] MEDS ORDERED: LACTULOSE 20Gm/30ML SOLN PO ONE (10:00)
[2022-07-02] MEDS: ASPirin 81 mg TAB PO SCH (10:05)
[2022-07-02] MEDS: FUROSEMIDE 20 MG/2 ML VIAL IV SCH (10:07)
[2022-07-02] MEDS: PANTOPRAZOLE 40 MG TAB PO SCH (10:10)
[2022-07-02] MEDS: SENNA 8.6 MG TAB PO SCH (10:10)
[2022-07-02] MEDS: APIXABAN 5 MG TAB PO SCH ×2 (10:10→22:16)
[2022-07-02] MEDS: levETIRAcetam 500 MG TAB PO SCH ×2 (10:10→22:15)
[2022-07-02 12:12] LABS: Basophils # (auto) 0 10 ^3/uL (0-0.2); Eosinophils # (auto) 0.1 10 ^3/uL (0-0.8); Nucleated Red Blood Cells % 0.1 %; Red Cell Distribution Width 19.8 % (11.8-14.3); White Blood Cell 5.8 10^3/uL (4.4-10.8)
[2022-07-02 12:13] LABS: Basophils % (auto) 0.6 % (0.0-2.0); Eosinophils % (auto) 1.9 % (0.0-7.0); Hemoglobin 10.8 g/dL (13.5-17.5); Lymphocytes # (auto) 1.1 10 ^3/uL (0.4-5.4); Lymphocytes % (auto) 19.9 % (10.0-50.0); Mean Corpuscular Hemoglobin 22.2 pg (28.0-32.0); Mean Corpuscular Hgb Conc. 31.8 g/dL (32.0-36.0); Mean Corpuscular Volume 69.6 fL (80.0-100.0); Monocytes # (auto) 0.5 10 ^3/uL (0-1.3); Neutrophils % (auto) 69.6 % (37.0-80.0); Red Blood Cells 4.88 10^6/uL (4.5-5.90)
[2022-07-02 12:18] LABS: INR 1.21 (0.9-1.15); Partial Thromboplastin Time 39.1 sec (24.6-33.4)
[2022-07-02] MEDS: METOPROLOL TARTRATE 25 MG TAB PO SCH (12:19)
[2022-07-02] MEDS: SACUBITRIL-VALSARTAN 24mg/26mg TAB PO SCH ×2 (12:19→22:15)
[2022-07-02 12:24] LABS: Calcium 9.1 mg/dL (8.5-10.1); Magnesium 1.9 mg/dL (1.6-2.6); Potassium 3.3 mmol/L (3.5-5.1)
[2022-07-02] MEDS ORDERED: HYDROmorphone HCL 2 MG/ML VL/or syr IV PRN ×2 (13:30)
[2022-07-02] MEDS ORDERED: SODIUM CHLORIDE 0.9% 250 ML IV ONE (15:00)
[2022-07-02] MEDS: CLOPIDOGREL BISULFATE 75 MG TAB PO SCH (15:13)
[2022-07-02] MEDS ORDERED: HYDROcodone-ACET 10/325MG TAB PO SCH (18:00)
[2022-07-02] MEDS: ATORVASTATIN 20 MG TAB PO SCH (22:16)
[2022-07-02] MEDS: D5W/SOD CHL 0.45% 1,000 ML IV SCH (22:45)
[2022-07-03] MEDS ORDERED: POTASSIUM CHL 20MEQ/100ML 100 ML IV SCH
[2022-07-03 04:33] VITALS: BP 129/80
[2022-07-03 05:00] VITALS: BP 110/43
[2022-07-03] MEDS: SUCRALFATE 1 GM/10 ML ORAL SUSP GT SCH ×3 (06:11→17:34)
[2022-07-03] MEDS: buPROPion HCL 75 MG TAB PO SCH (06:11)
[2022-07-03 09:00] VITALS: BP 124/73
[2022-07-03] MEDS: FUROSEMIDE 20 MG/2 ML VIAL IV SCH (10:24)
[2022-07-03] MEDS: ASPirin 81 mg TAB PO SCH (10:25)
[2022-07-03] MEDS: levETIRAcetam 500 MG TAB PO SCH ×2 (10:26→22:03)
[2022-07-03] MEDS: PANTOPRAZOLE 40 MG TAB PO SCH (10:26)
[2022-07-03] MEDS: SENNA 8.6 MG TAB PO SCH (10:26)
[2022-07-03] MEDS: APIXABAN 5 MG TAB PO SCH ×2 (10:27→22:03)
[2022-07-03] MEDS: SACUBITRIL-VALSARTAN 24mg/26mg TAB PO SCH ×2 (10:27→22:03)
[2022-07-03] MEDS: METOPROLOL TARTRATE 25 MG TAB PO SCH (10:27)
[2022-07-03] MEDS: Glucerna Carbsteady SHAKE Vanilla 8oz PO SCH ×2 (10:27→22:24)
[2022-07-03 13:00] VITALS: BP 109/47
[2022-07-03] MEDS: CLOPIDOGREL BISULFATE 75 MG TAB PO SCH (16:00)
[2022-07-03 17:03] VITALS: BP 106/49
[2022-07-03] MEDS: HYDROmorphone HCL 2 MG/ML VL/or syr IV PRN ×2 (17:35→22:12)
[2022-07-03 22:00] VITALS: BP 109/46
[2022-07-03] MEDS: ATORVASTATIN 20 MG TAB PO SCH (22:02)
[2022-07-03] MEDS: D5W/SOD CHL 0.45% 1,000 ML IV SCH (22:25)
[2022-07-04] MEDS: HYDROmorphone HCL 2 MG/ML VL/or syr IV PRN ×7 (02:12→21:50)
[2022-07-04 05:00] VITALS: BP 115/48
[2022-07-04] MEDS: buPROPion HCL 75 MG TAB PO SCH (06:19)
[2022-07-04] MEDS: SUCRALFATE 1 GM/10 ML ORAL SUSP GT SCH ×3 (06:19→17:20)
[2022-07-04] MEDS: SENNA 8.6 MG TAB PO SCH (08:48)
[2022-07-04] MEDS: SACUBITRIL-VALSARTAN 24mg/26mg TAB PO SCH ×2 (08:49→21:50)
[2022-07-04] MEDS: ASPirin 81 mg TAB PO SCH (08:49)
[2022-07-04] MEDS: PANTOPRAZOLE 40 MG TAB PO SCH (08:49)
[2022-07-04] MEDS: FUROSEMIDE 20 MG/2 ML VIAL IV SCH (08:50)
[2022-07-04] MEDS: levETIRAcetam 500 MG TAB PO SCH ×2 (08:50→21:51)
[2022-07-04] MEDS: METOPROLOL TARTRATE 25 MG TAB PO SCH (08:50)
[2022-07-04] MEDS: APIXABAN 5 MG TAB PO SCH ×2 (08:50→21:50)
[2022-07-04 09:51] VITALS: BP 113/46
[2022-07-04] MEDS: Glucerna Carbsteady SHAKE Vanilla 8oz PO SCH ×2 (12:06→21:50)
[2022-07-04 12:58] VITALS: BP 117/45
[2022-07-04] MEDS: CLOPIDOGREL BISULFATE 75 MG TAB PO SCH (14:28)
[2022-07-04 15:39] LABS: Basophils # (auto) 0 10 ^3/uL (0-0.2); Basophils % (auto) 0.6 % (0.0-2.0); Eosinophils # (auto) 0.2 10 ^3/uL (0-0.8); Hematocrit 34.6 % (41.0-53.0); Hemoglobin 10.7 g/dL (13.5-17.5); Lymphocytes # (auto) 1.2 10 ^3/uL (0.4-5.4); Lymphocytes % (auto) 20.9 % (10.0-50.0); Mean Corpuscular Hemoglobin 21.6 pg (28.0-32.0); Mean Corpuscular Hgb Conc. 30.8 g/dL (32.0-36.0); Monocytes # (auto) 0.4 10 ^3/uL (0-1.3); Monocytes % (auto) 6.9 % (0.0-12.0); Neutrophils % (auto) 68.6 % (37.0-80.0); Nucleated Red Blood Cells % 0.1 %; Red Blood Cells 4.95 10^6/uL (4.5-5.90); Red Cell Distribution Width 19.9 % (11.8-14.3); White Blood Cell 5.8 10^3/uL (4.4-10.8)
[2022-07-04 15:55] LABS: Albumin 2.7 g/dL (3.4-5.0)
[2022-07-04 15:58] LABS: Bilirubin, Total 0.3 mg/dL (0.2-1.0); Total Protein 6.4 g/dL (6.4-8.2)
[2022-07-04] MEDS: ATORVASTATIN 20 MG TAB PO SCH (21:51)
[2022-07-04 22:26] VITALS: BP 125/47
[2022-07-04] MEDS: D5W/SOD CHL 0.45% 1,000 ML IV SCH (22:45)
[2022-07-05 04:30] VITALS: BP 109/50
[2022-07-05] MEDS: buPROPion HCL 75 MG TAB PO SCH (06:20)
[2022-07-05] MEDS: SUCRALFATE 1 GM/10 ML ORAL SUSP GT SCH ×3 (06:21→17:40)
[2022-07-05 08:00] VITALS: BP 125/55
[2022-07-05] MEDS: FUROSEMIDE 20 MG/2 ML VIAL IV SCH (08:11)
[2022-07-05] MEDS: SACUBITRIL-VALSARTAN 24mg/26mg TAB PO SCH ×2 (08:12→22:24)
[2022-07-05] MEDS: HYDROmorphone HCL 2 MG/ML VL/or syr IV PRN ×6 (08:12→23:04)
[2022-07-05] MEDS: ASPirin 81 mg TAB PO SCH (08:12)
[2022-07-05] MEDS: METOPROLOL TARTRATE 25 MG TAB PO SCH (08:12)
[2022-07-05] MEDS: APIXABAN 5 MG TAB PO SCH ×2 (08:13→22:24)
[2022-07-05] MEDS: levETIRAcetam 500 MG TAB PO SCH ×2 (08:13→22:25)
[2022-07-05] MEDS: PANTOPRAZOLE 40 MG TAB PO SCH (08:13)
[2022-07-05] MEDS: SENNA 8.6 MG TAB PO SCH (08:13)
[2022-07-05 12:00] VITALS: BP 118/49
[2022-07-05] MEDS: Glucerna Carbsteady SHAKE Vanilla 8oz PO SCH ×2 (12:17→22:24)
[2022-07-05] MEDS: CLOPIDOGREL BISULFATE 75 MG TAB PO SCH (14:41)
[2022-07-05 16:00] VITALS: BP 118/79
[2022-07-05 22:00] VITALS: BP 127/91
[2022-07-05] MEDS: ATORVASTATIN 20 MG TAB PO SCH (22:25)
[2022-07-05] MEDS: D5W/SOD CHL 0.45% 1,000 ML IV SCH (22:49)
[2022-07-06 04:00] VITALS: BP 123/47
[2022-07-06] MEDS: SUCRALFATE 1 GM/10 ML ORAL SUSP GT SCH ×3 (07:05→17:15)
[2022-07-06] MEDS: buPROPion HCL 75 MG TAB PO SCH (07:06)
[2022-07-06] MEDS: HYDROmorphone HCL 2 MG/ML VL/or syr IV PRN ×3 (08:14→20:38)
[2022-07-06 08:34] VITALS: BP 125/75
[2022-07-06] MEDS: ASPirin 81 mg TAB PO SCH (10:03)
[2022-07-06] MEDS: FUROSEMIDE 20 MG/2 ML VIAL IV SCH (10:03)
[2022-07-06] MEDS: PANTOPRAZOLE 40 MG TAB PO SCH (10:03)
[2022-07-06] MEDS: SACUBITRIL-VALSARTAN 24mg/26mg TAB PO SCH ×2 (10:04→21:49)
[2022-07-06] MEDS: levETIRAcetam 500 MG TAB PO SCH ×2 (10:04→21:49)
[2022-07-06] MEDS: APIXABAN 5 MG TAB PO SCH ×2 (10:04→21:49)
[2022-07-06] MEDS: SENNA 8.6 MG TAB PO SCH (10:04)
[2022-07-06] MEDS: METOPROLOL TARTRATE 25 MG TAB PO SCH (10:05)
[2022-07-06] MEDS: Glucerna Carbsteady SHAKE Vanilla 8oz PO SCH ×2 (10:15→21:54)
[2022-07-06 13:07] VITALS: BP 134/49
[2022-07-06] MEDS: CLOPIDOGREL BISULFATE 75 MG TAB PO SCH (14:11)
[2022-07-06 16:40] VITALS: BP 119/46
[2022-07-06] MEDS: ATORVASTATIN 20 MG TAB PO SCH (21:51)
[2022-07-06 22:00] VITALS: BP 108/49
[2022-07-07] MEDS: HYDROmorphone HCL 2 MG/ML VL/or syr IV PRN ×2 (02:44→09:12)
[2022-07-07 05:00] VITALS: BP 117/50
[2022-07-07] MEDS: buPROPion HCL 75 MG TAB PO SCH (06:33)
[2022-07-07] MEDS: SUCRALFATE 1 GM/10 ML ORAL SUSP GT SCH (06:33)
[2022-07-07] MEDS: D5W/SOD CHL 0.45% 1,000 ML IV SCH (06:42)
[2022-07-07 07:44] LABS: Albumin 2.9 g/dL (3.4-5.0); BUN/Creatinine Ratio 28.3; Bilirubin, Total 0.4 mg/dL (0.2-1.0); Calcium 8.8 mg/dL (8.5-10.1)
[2022-07-07 09:00] VITALS: BP 106/56
[2022-07-07] MEDS: ASPirin 81 mg TAB PO SCH (10:28)
[2022-07-07 10:29] VITALS: BP 106/56
[2022-07-07] MEDS: SENNA 8.6 MG TAB PO SCH (10:29)
[2022-07-07] MEDS: PANTOPRAZOLE 40 MG TAB PO SCH (10:29)
[2022-07-07] MEDS: SACUBITRIL-VALSARTAN 24mg/26mg TAB PO SCH (10:29)
[2022-07-07] MEDS: APIXABAN 5 MG TAB PO SCH (10:30)
[2022-07-07] MEDS: levETIRAcetam 500 MG TAB PO SCH (10:30)
[2022-07-07] MEDS: METOPROLOL TARTRATE 25 MG TAB PO SCH (10:31)
[2022-07-07] MEDS: FUROSEMIDE 20 MG/2 ML VIAL IV SCH (10:32)
[2022-07-07 10:45] VITALS: BP 106/57
== END 2022-07-07 11:57 | DRG 246 ==
LOC: EDBD 07:17 → ER 07:17 → TELE 10:07 → TELE-CENTR 06-20 08:56 → ICU WEST 06-24 02:35 → TELE-CENTR 06-25 23:40
PROVIDERS: ADMIT Internal Medicine; ATTEND Internal Medicine Infectious Disease
PROC: 4A00X4Z Measurement of Central Nervous Electrical Activity, External Approach (ICD-10-PCS; 2022-06-22)
PROC: 4A023N7 Measurement of Cardiac Sampling and Pressure, Left Heart, Percutaneous Approach (ICD-10-PCS; principal; 2022-06-29)
PROC: 027034Z Dilation of Coronary Artery, One Artery with Drug-eluting Intraluminal Device, Percutaneous Approach (ICD-10-PCS; 2022-06-29)
PROC: 02F03ZZ Fragmentation in Coronary Artery, One Artery, Percutaneous Approach (ICD-10-PCS; 2022-06-29)
PROC: B211YZZ Fluoroscopy of Multiple Coronary Arteries using Other Contrast (ICD-10-PCS; 2022-06-29)
PROC: B215YZZ Fluoroscopy of Left Heart using Other Contrast (ICD-10-PCS; 2022-06-29)
PROC: B41FYZZ Fluoroscopy of Right Lower Extremity Arteries using Other Contrast (ICD-10-PCS; 2022-06-29)
DX: I13.0 Hypertensive heart and chronic kidney disease with heart failure and stage 1 through stage 4 chronic kidney disease, or unspecified chronic kidney disease (principal); G93.41 Metabolic encephalopathy; I21.09 ST elevation (STEMI) myocardial infarction involving other coronary artery of anterior wall; I50.33 Acute on chronic diastolic (congestive) heart failure; J15.6 Pneumonia due to other Gram-negative bacteria; E46 Unspecified protein-calorie malnutrition; N39.0 Urinary tract infection, site not specified; K80.00 Calculus of gallbladder with acute cholecystitis without obstruction; J44.0 Chronic obstructive pulmonary disease with (acute) lower respiratory infection; G93.1 Anoxic brain damage, not elsewhere classified; I24.9 Acute ischemic heart disease, unspecified; I69.351 Hemiplegia and hemiparesis following cerebral infarction affecting right dominant side; E86.0 Dehydration; E86.1 Hypovolemia; Z20.822 Contact with and (suspected) exposure to COVID-19; E78.00 Pure hypercholesterolemia, unspecified; K21.9 Gastro-esophageal reflux disease without esophagitis; M47.812 Spondylosis without myelopathy or radiculopathy, cervical region; F17.200 Nicotine dependence, unspecified, uncomplicated; G40.909 Epilepsy, unspecified, not intractable, without status epilepticus; K56.41 Fecal impaction; E11.22 Type 2 diabetes mellitus with diabetic chronic kidney disease; N18.9 Chronic kidney disease, unspecified; I25.10 Atherosclerotic heart disease of native coronary artery without angina pectoris; E11.65 Type 2 diabetes mellitus with hyperglycemia; I25.5 Ischemic cardiomyopathy; Z98.61 Coronary angioplasty status; Z83.3 Family history of diabetes mellitus; Z88.5 Allergy status to narcotic agent; Z88.0 Allergy status to penicillin; Z68.22 Body mass index [BMI] 22.0-22.9, adult; I25.2 Old myocardial infarction; Z79.01 Long term (current) use of anticoagulants; Z79.02 Long term (current) use of antithrombotics/antiplatelets; Z79.899 Other long term (current) drug therapy; Z88.6 Allergy status to analgesic agent; Z95.2 Presence of prosthetic heart valve; Z82.49 Family history of ischemic heart disease and other diseases of the circulatory system
CPT/HCPCS: 36415; 70450; 70551; 71045; 74022; 75710; 78582; 80048; 80053; 81001; 82607; 82746; 83036; 83735; 83880; 84100; 84443; 84484; 85025; 85379; 85610; 85730; 86850; 86900; 86901; 87040; 87081; 87086; 87426; 92928; 93005; 93306; 93458; 94640; 95819; 97110; 97163; 97530; 99152; 99153; C1874; G0378; J0696; J1956; J2250; J3480; J7042; Q9967

== ENCOUNTER 2022-07-29 00:13 | Inpatient (IN) | payer MEDICARE, MEDICAID ==
[~2022-07-29] VITALS: Ht 182.9 cm; Wt 83.9 kg
[~2022-07-29 00:13] MED LIST changes: -PANT40T; +PANT40T PO; -POTA1TAB64; +POTA1TAB64 PO
[2022-07-29 01:20] LABS: Basophils # (auto) 0 10 ^3/uL (0-0.2); Eosinophils # (auto) 0.1 10 ^3/uL (0-0.8); Hematocrit 32.3 % (41.0-53.0); Monocytes # (auto) 0.4 10 ^3/uL (0-1.3); White Blood Cell 5.1 10^3/uL (4.4-10.8)
[2022-07-29 01:22] LABS: Basophils % (auto) 0.5 % (0.0-2.0); Eosinophils % (auto) 2.7 % (0.0-7.0); Hemoglobin 9.8 g/dL (13.5-17.5); Lymphocytes # (auto) 1.1 10 ^3/uL (0.4-5.4); Lymphocytes % (auto) 21.3 % (10.0-50.0); Mean Corpuscular Hemoglobin 21.7 pg (28.0-32.0); Mean Corpuscular Hgb Conc. 30.4 g/dL (32.0-36.0); Mean Corpuscular Volume 71.4 fL (80.0-100.0); Monocytes % (auto) 8.2 % (0.0-12.0); Neutrophils # (auto) 3.4 10 ^3/uL (1.6-8.6); Neutrophils % (auto) 67.3 % (37.0-80.0); Nucleated Red Blood Cells % 0.3 %; Red Blood Cells 4.52 10^6/uL (4.5-5.90)
[2022-07-29] MEDS ORDERED: ALBUTEROL SULF 2.5 MG/0.5ML(0.5%) NEB SOLN NEB ONE (01:30)
[2022-07-29] MEDS ORDERED: DexAMETHasone SOD PHOS 10MG/1ML VIAL INJ IV ONE (01:30)
[2022-07-29] MEDS ORDERED: AZITHROMYCIN 500MG/ 250ML 250 ML IV ONE (01:30)
[2022-07-29 01:33] LABS: Red Cell Distribution Width 20.2 % (11.8-14.3)
[2022-07-29 01:38] LABS: INR 1.13 (0.9-1.15)
[2022-07-29 01:42] LABS: Albumin 2.9 g/dL (3.4-5.0); Calcium 8.4 mg/dL (8.5-10.1); Potassium 4.7 mmol/L (3.5-5.1)
[2022-07-29 01:45] LABS: BUN/Creatinine Ratio 21.3 (10.0-20.0)
[2022-07-29 01:48] LABS: Bilirubin, Total 0.3 mg/dL (0.2-1.0); Total Protein 6.2 g/dL (6.4-8.2)
[2022-07-29] MEDS ORDERED: MORPHINE SULFATE INJ 2 MG/ml SYRG ONE (02:06)
[2022-07-29] MEDS ORDERED: NITROGLYCERIN 50MG/250ML 250 ML IV SCH (02:30)
[2022-07-29] MEDS ORDERED: FUROSEMIDE 40 MG/4 ML VIAL IV ONE (02:30)
[2022-07-29] MEDS: NITROGLYCERIN 50MG/250ML 250 ML IV SCH (02:50)
[2022-07-29] MEDS ORDERED: cefTRIAXone SOD 1,000 MG VL IM ONE (03:30)
[2022-07-29] MEDS ORDERED: ENOXAPARIN SOD 40 MG/0.4 ML SYRINGE SC ONE (03:30)
[2022-07-29] MEDS ORDERED: PANTOPRAZOLE 40 MG/10 ML VIAL INJ IV ONE (03:30)
[2022-07-29] MEDS ORDERED: cefTRIAXone 1GM/50ML D5W 50 ML IV ONE (03:45)
[2022-07-29] MEDS ORDERED: HEPARIN SODIUM (PORCINE) 5000 UNITS/ML 1ML VIAL IV ONE (03:45)
[2022-07-29] MEDS: HEPARIN DRIP/D5W 100UNITS/ML 250 ML IV SCH (03:45)
[2022-07-29] MEDS: ALBUTEROL SULF 2.5 MG/0.5ML(0.5%) NEB SOLN NEB PRN ×2 (06:04→22:58)
[2022-07-29] MEDS ORDERED: MORPHINE SULFATE INJ 2 MG/ml SYRG IV PRN (07:00)
[2022-07-29] MEDS ORDERED: MORPHINE SULFATE INJ 2 MG/ml SYRG IV ONE (07:00)
[2022-07-29 07:19] VITALS: BP 127/59
[2022-07-29] MEDS ORDERED: methylPREDNISolone SOD SUCC 40 MG/ML VL IV ONE (10:00)
[2022-07-29] MEDS ORDERED: ENOXAPARIN SOD 40 MG/0.4 ML SYRINGE SC SCH (10:00)
[2022-07-29] MEDS ORDERED: FUROSEMIDE 40 MG/4 ML VIAL IV SCH (10:00)
[2022-07-29] MEDS: PANTOPRAZOLE 40 MG/10 ML VIAL INJ IV SCH (12:47)
[2022-07-29] MEDS: CLOPIDOGREL BISULFATE 75 MG TAB PO SCH (12:54)
[2022-07-29] MEDS: MORPHINE SULFATE INJ 2 MG/ml SYRG IV PRN (20:55)
[2022-07-29] MEDS: FUROSEMIDE 40 MG/4 ML VIAL IV SCH (21:30)
[2022-07-29] MEDS: methylPREDNISolone SOD SUCC 40 MG/ML VL IV SCH (22:00)
[2022-07-30] MEDS: NITROGLYCERIN 50MG/250ML 250 ML IV SCH (02:30)
[2022-07-30] MEDS: HEPARIN DRIP/D5W 100UNITS/ML 250 ML IV SCH (03:45)
[2022-07-30 05:17] LABS: Basophils # (auto) 0 10 ^3/uL (0-0.2); Eosinophils # (auto) 0 10 ^3/uL (0-0.8); Hemoglobin 9.1 g/dL (13.5-17.5); Lymphocytes # (auto) 0.4 10 ^3/uL (0.4-5.4); Mean Corpuscular Hgb Conc. 31.2 g/dL (32.0-36.0); Monocytes # (auto) 0.2 10 ^3/uL (0-1.3); Red Blood Cells 4.13 10^6/uL (4.5-5.90); White Blood Cell 4.7 10^3/uL (4.4-10.8)
[2022-07-30 05:19] LABS: Hematocrit 29.1 % (41.0-53.0); Lymphocytes % (auto) 8.2 % (10.0-50.0); Mean Corpuscular Volume 70.4 fL (80.0-100.0); Monocytes % (auto) 3.8 % (0.0-12.0); Neutrophils # (auto) 4.1 10 ^3/uL (1.6-8.6); Nucleated Red Blood Cells % 0.3 %; Red Cell Distribution Width 19.4 % (11.8-14.3)
[2022-07-30 05:34] LABS: Potassium 4.4 mmol/L (3.5-5.1)
[2022-07-30 05:48] LABS: Albumin 2.9 g/dL (3.4-5.0); BUN/Creatinine Ratio 22.7 (10.0-20.0); Bilirubin, Total 0.3 mg/dL (0.2-1.0); Calcium 8.7 mg/dL (8.5-10.1); Magnesium 2.1 mg/dL (1.6-2.6); Total Protein 6.3 g/dL (6.4-8.2)
[2022-07-30] MEDS: PANTOPRAZOLE 40 MG/10 ML VIAL INJ IV SCH (10:54)
[2022-07-30] MEDS: CLOPIDOGREL BISULFATE 75 MG TAB PO SCH (10:54)
[2022-07-30] MEDS: methylPREDNISolone SOD SUCC 40 MG/ML VL IV SCH ×2 (10:55→11:45)
[2022-07-30] MEDS: FUROSEMIDE 40 MG/4 ML VIAL IV SCH (10:55)
[2022-07-30] MEDS: HYDROmorphone HCL 2 MG/ML VL/or syr IV PRN ×2 (10:55→16:45)
[2022-07-30] MEDS: buPROPion HCL 75 MG TAB PO SCH (11:30)
[2022-07-30] MEDS: APIXABAN 5 MG TAB PO SCH ×2 (11:30→22:19)
[2022-07-30] MEDS: MORPHINE SULFATE INJ 2 MG/ml SYRG IV PRN (21:00)
[2022-07-30] MEDS ORDERED: VANCOMYCIN PER PHARMACY 0 MG IV SCH (21:15)
[2022-07-30] MEDS ORDERED: VANCOMYCIN 1GM/250ML 250 ML IV ONE (21:30)
[2022-07-30 22:00] VITALS: BP 139/67
[2022-07-30] MEDS: CEFEPIME 2 GM in SODIUM CHL 0.9% 50 ML IV SCH (22:00)
[2022-07-30] MEDS ORDERED: CARB25TA77 PO (23:16)
[2022-07-30] MEDS ORDERED: FURO20TA3 PO (23:16)
[2022-07-30] MEDS ORDERED: ATOR-47 PO (23:16)
[2022-07-30] MEDS ORDERED: SUCR1TAB22 OR (23:16)
[2022-07-30] MEDS ORDERED: ASPI81CH59 PO (23:16)
[2022-07-31] MEDS: HYDROmorphone HCL 2 MG/ML VL/or syr IV PRN ×4 (00:51→20:42)
[2022-07-31 05:00] VITALS: BP 121/50
[2022-07-31 05:56] LABS: Potassium 4.4 mmol/L (3.5-5.1)
[2022-07-31] MEDS: CEFEPIME 2 GM in SODIUM CHL 0.9% 50 ML IV SCH ×3 (06:00→22:30)
[2022-07-31 06:03] LABS: Basophils # (auto) 0 10 ^3/uL (0-0.2); Basophils % (auto) 0.2 % (0.0-2.0); Eosinophils # (auto) 0 10 ^3/uL (0-0.8); Eosinophils % (auto) 0.6 % (0.0-7.0); Hematocrit 29.2 % (41.0-53.0); Hemoglobin 8.7 g/dL (13.5-17.5); Lymphocytes # (auto) 0.9 10 ^3/uL (0.4-5.4); Lymphocytes % (auto) 15.6 % (10.0-50.0); Mean Corpuscular Hemoglobin 21.6 pg (28.0-32.0); Mean Corpuscular Hgb Conc. 29.7 g/dL (32.0-36.0); Mean Corpuscular Volume 72.8 fL (80.0-100.0); Monocytes # (auto) 0.5 10 ^3/uL (0-1.3); Monocytes % (auto) 8.2 % (0.0-12.0); Neutrophils # (auto) 4.5 10 ^3/uL (1.6-8.6); Neutrophils % (auto) 75.4 % (37.0-80.0); Nucleated Red Blood Cells % 0.4 %; Red Blood Cells 4.02 10^6/uL (4.5-5.90)
[2022-07-31 06:05] LABS: Albumin 2.8 g/dL (3.4-5.0); BUN/Creatinine Ratio 26.7 (10.0-20.0); Bilirubin, Total 0.4 mg/dL (0.2-1.0); Calcium 8.4 mg/dL (8.5-10.1); Total Protein 5.8 g/dL (6.4-8.2)
[2022-07-31 06:08] LABS: Red Cell Distribution Width 20.3 % (11.8-14.3)
[2022-07-31] MEDS: buPROPion HCL 75 MG TAB PO SCH (06:59)
[2022-07-31] MEDS: AZITHROMYCIN 250 MG TAB PO SCH (09:40)
[2022-07-31] MEDS: PANTOPRAZOLE 40 MG/10 ML VIAL INJ IV SCH (09:40)
[2022-07-31] MEDS: APIXABAN 5 MG TAB PO SCH ×2 (09:40→22:49)
[2022-07-31] MEDS: CLOPIDOGREL BISULFATE 75 MG TAB PO SCH (09:40)
[2022-07-31] MEDS: methylPREDNISolone SOD SUCC 40 MG/ML VL IV SCH (09:44)
[2022-07-31] MEDS: FUROSEMIDE 40 MG/4 ML VIAL IV SCH (09:46)
[2022-07-31] MEDS: VANCOMYCIN 1GM/250ML 250 ML IV SCH ×2 (09:47→20:30)
[2022-07-31 11:33] VITALS: BP 117/54
[2022-07-31 13:00] VITALS: BP 128/62
[2022-07-31 17:00] VITALS: BP 127/59
[2022-07-31 22:00] VITALS: BP 130/64
[2022-08-01] VITALS (7 sets, daily range): BP systolic 108–135; BP diastolic 49–55
[2022-08-01] MEDS: HYDROmorphone HCL 2 MG/ML VL/or syr IV PRN ×4 (01:08→20:49)
[2022-08-01] MEDS: CEFEPIME 2 GM in SODIUM CHL 0.9% 50 ML IV SCH ×3 (06:00→21:12)
[2022-08-01 06:20] LABS: Basophils # (auto) 0 10 ^3/uL (0-0.2); Basophils % (auto) 0.2 % (0.0-2.0); Eosinophils # (auto) 0 10 ^3/uL (0-0.8); Eosinophils % (auto) 0.7 % (0.0-7.0); Hemoglobin 8.5 g/dL (13.5-17.5); Lymphocytes # (auto) 0.9 10 ^3/uL (0.4-5.4); Lymphocytes % (auto) 18.1 % (10.0-50.0); Mean Corpuscular Hemoglobin 21.9 pg (28.0-32.0); Mean Corpuscular Hgb Conc. 31.6 g/dL (32.0-36.0); Mean Corpuscular Volume 69.4 fL (80.0-100.0); Monocytes # (auto) 0.4 10 ^3/uL (0-1.3); Monocytes % (auto) 7.6 % (0.0-12.0); Neutrophils # (auto) 3.7 10 ^3/uL (1.6-8.6); Neutrophils % (auto) 73.4 % (37.0-80.0); Nucleated Red Blood Cells % 0.3 %; Red Blood Cells 3.89 10^6/uL (4.5-5.90); Red Cell Distribution Width 19.4 % (11.8-14.3); White Blood Cell 5.1 10^3/uL (4.4-10.8)
[2022-08-01] MEDS: VANCOMYCIN 1GM/250ML 250 ML IV SCH (06:22)
[2022-08-01 06:36] LABS: Albumin 2.5 g/dL (3.4-5.0); Calcium 8.2 mg/dL (8.5-10.1); Magnesium 2.3 mg/dL (1.6-2.6); Potassium 3.9 mmol/L (3.5-5.1)
[2022-08-01 06:41] LABS: Bilirubin, Total 0.4 mg/dL (0.2-1.0); Phosphorus 3.1 mg/dL (2.5-4.90); Total Protein 5.8 g/dL (6.4-8.2)
[2022-08-01] MEDS: buPROPion HCL 75 MG TAB PO SCH (07:41)
[2022-08-01] MEDS: PANTOPRAZOLE 40 MG/10 ML VIAL INJ IV SCH (10:25)
[2022-08-01] MEDS: CLOPIDOGREL BISULFATE 75 MG TAB PO SCH (10:26)
[2022-08-01] MEDS: AZITHROMYCIN 250 MG TAB PO SCH (10:26)
[2022-08-01] MEDS: APIXABAN 5 MG TAB PO SCH ×2 (10:26→20:48)
[2022-08-01] MEDS: NITROGLYCERIN 0.4MG/HR TOPICAL PATCH TD SCH (10:27)
[2022-08-01] MEDS: FUROSEMIDE 40 MG/4 ML VIAL IV SCH (10:42)
[2022-08-02] MEDS: HYDROmorphone HCL 2 MG/ML VL/or syr IV PRN ×7 (00:47→22:27)
[2022-08-02] MEDS: VANCOMYCIN 1GM/250ML 250 ML IV SCH ×2 (00:47→18:07)
[2022-08-02 05:00] VITALS: BP 135/50
[2022-08-02] MEDS: CEFEPIME 2 GM in SODIUM CHL 0.9% 50 ML IV SCH ×3 (05:16→22:22)
[2022-08-02] MEDS: buPROPion HCL 75 MG TAB PO SCH (06:29)
[2022-08-02 08:00] VITALS: BP 129/61
[2022-08-02 09:00] VITALS: BP 129/61
[2022-08-02] MEDS: AZITHROMYCIN 250 MG TAB PO SCH (10:12)
[2022-08-02] MEDS: PANTOPRAZOLE 40 MG/10 ML VIAL INJ IV SCH (10:12)
[2022-08-02] MEDS: APIXABAN 5 MG TAB PO SCH ×2 (10:12→22:23)
[2022-08-02] MEDS: CLOPIDOGREL BISULFATE 75 MG TAB PO SCH (10:12)
[2022-08-02] MEDS: NITROGLYCERIN 0.4MG/HR TOPICAL PATCH TD SCH (10:13)
[2022-08-02] MEDS: FUROSEMIDE 40 MG/4 ML VIAL IV SCH ×2 (11:20→13:26)
[2022-08-02 13:00] VITALS: BP 142/83
[2022-08-02 17:00] VITALS: BP 129/60
[2022-08-02] MEDS: ALBUTEROL SULF 2.5 MG/0.5ML(0.5%) NEB SOLN NEB PRN (19:35)
[2022-08-02] MEDS: Ensure HIGH Protein Chocolate 8oz Bottle PO SCH (20:35)
[2022-08-02 22:00] VITALS: BP 129/56
[2022-08-03] MEDS: ALBUTEROL SULF 2.5 MG/0.5ML(0.5%) NEB SOLN NEB PRN ×5 (00:50→23:34)
[2022-08-03] MEDS: HYDROmorphone HCL 2 MG/ML VL/or syr IV PRN ×7 (01:33→22:18)
[2022-08-03 05:00] VITALS: BP 142/62
[2022-08-03] MEDS: CEFEPIME 2 GM in SODIUM CHL 0.9% 50 ML IV SCH ×3 (05:19→21:48)
[2022-08-03] MEDS: buPROPion HCL 75 MG TAB PO SCH (06:45)
[2022-08-03 08:00] VITALS: BP 140/61
[2022-08-03 09:58] VITALS: BP 140/61
[2022-08-03] MEDS: AZITHROMYCIN 250 MG TAB PO SCH (10:25)
[2022-08-03] MEDS: CLOPIDOGREL BISULFATE 75 MG TAB PO SCH (10:25)
[2022-08-03] MEDS: PANTOPRAZOLE 40 MG/10 ML VIAL INJ IV SCH (10:26)
[2022-08-03] MEDS: FUROSEMIDE 40 MG/4 ML VIAL IV SCH (10:26)
[2022-08-03] MEDS: APIXABAN 5 MG TAB PO SCH ×2 (10:26→21:49)
[2022-08-03] MEDS: NITROGLYCERIN 0.4MG/HR TOPICAL PATCH TD SCH (10:43)
[2022-08-03] MEDS: VANCOMYCIN 1GM/250ML 250 ML IV SCH (12:35)
[2022-08-03 13:19] VITALS: BP 127/54
[2022-08-03] MEDS: MORPHINE SULFATE INJ 2 MG/ml SYRG IV PRN (14:35)
[2022-08-03 16:40] VITALS: BP 127/44
[2022-08-03] MEDS: Ensure HIGH Protein Chocolate 8oz Bottle PO SCH (19:05)
[2022-08-03 22:00] VITALS: BP 133/70
[2022-08-04 05:00] VITALS: BP_SYST 134
[2022-08-04] MEDS: HYDROmorphone HCL 2 MG/ML VL/or syr IV PRN ×5 (05:01→23:54)
[2022-08-04] MEDS: VANCOMYCIN 1GM/250ML 250 ML IV SCH ×2 (06:29→23:55)
[2022-08-04] MEDS: CEFEPIME 2 GM in SODIUM CHL 0.9% 50 ML IV SCH ×3 (06:39→22:15)
[2022-08-04] MEDS: buPROPion HCL 75 MG TAB PO SCH (06:40)
[2022-08-04 06:43] LABS: Basophils # (auto) 0 10 ^3/uL (0-0.2); Basophils % (auto) 0.4 % (0.0-2.0); Eosinophils # (auto) 0.1 10 ^3/uL (0-0.8); Eosinophils % (auto) 2.1 % (0.0-7.0); Hematocrit 35.3 % (41.0-53.0); Hemoglobin 10.3 g/dL (13.5-17.5); Lymphocytes # (auto) 1.5 10 ^3/uL (0.4-5.4); Lymphocytes % (auto) 22.6 % (10.0-50.0); Mean Corpuscular Hemoglobin 21.6 pg (28.0-32.0); Mean Corpuscular Hgb Conc. 29.3 g/dL (32.0-36.0); Mean Corpuscular Volume 73.8 fL (80.0-100.0); Monocytes # (auto) 0.7 10 ^3/uL (0-1.3); Monocytes % (auto) 9.9 % (0.0-12.0); Neutrophils # (auto) 4.3 10 ^3/uL (1.6-8.6); Nucleated Red Blood Cells % 0.2 %; Red Blood Cells 4.79 10^6/uL (4.5-5.90); White Blood Cell 6.6 10^3/uL (4.4-10.8)
[2022-08-04 06:46] LABS: Chloride 109 mmol/L (98-107); Potassium 4.4 mmol/L (3.5-5.1); Sodium 145 mmol/L (136-145)
[2022-08-04 06:57] LABS: Anion Gap 9 (5-15); Aspartate Aminotransferase 28 U/L (15-37); BUN/Creatinine Ratio 26.7 (10.0-20.0); Blood Urea Nitrogen 16 mg/dL (7-18); Calcium 9.2 mg/dL (8.5-10.1); Carbon Dioxide 27 mmol/L (21-32); GFR African American 173 mL/min; GFR Non-African American 143 mL/min; Glucose 120 mg/dL (74-106); Magnesium 2.3 mg/dL (1.6-2.6)
[2022-08-04 07:13] LABS: Alanine Aminotransferase 30 U/L (16-61); Alkaline Phosphatase 107 U/L (45-117); Bilirubin, Total 0.6 mg/dL (0.2-1.0); Phosphorus 3.1 mg/dL (2.5-4.90); Total Protein 6.6 g/dL (6.4-8.2)
[2022-08-04 09:00] VITALS: BP 155/55
[2022-08-04] MEDS: PANTOPRAZOLE 40 MG/10 ML VIAL INJ IV SCH (09:13)
[2022-08-04] MEDS: CLOPIDOGREL BISULFATE 75 MG TAB PO SCH (09:13)
[2022-08-04] MEDS: APIXABAN 5 MG TAB PO SCH ×2 (09:14→22:15)
[2022-08-04] MEDS: NITROGLYCERIN 0.4MG/HR TOPICAL PATCH TD SCH (09:15)
[2022-08-04] MEDS: FUROSEMIDE 40 MG/4 ML VIAL IV SCH (09:16)
[2022-08-04] MEDS: ALBUTEROL SULF 2.5 MG/0.5ML(0.5%) NEB SOLN NEB PRN ×3 (10:55→22:33)
[2022-08-04 13:00] VITALS: BP 103/70
[2022-08-04 14:07] VITALS: BP 103/70
[2022-08-04 17:00] VITALS: BP 138/61
[2022-08-04] MEDS: Ensure HIGH Protein Chocolate 8oz Bottle PO SCH (17:30)
[2022-08-04 22:00] VITALS: BP 135/74
[2022-08-05] MEDS: ALBUTEROL SULF 2.5 MG/0.5ML(0.5%) NEB SOLN NEB SCH ×5 (02:26→22:32)
[2022-08-05 05:00] VITALS: BP 151/63
[2022-08-05] MEDS: HYDROmorphone HCL 2 MG/ML VL/or syr IV PRN ×3 (05:53→20:32)
[2022-08-05] MEDS: CEFEPIME 2 GM in SODIUM CHL 0.9% 50 ML IV SCH ×3 (05:53→21:47)
[2022-08-05] MEDS: buPROPion HCL 75 MG TAB PO SCH (06:10)
[2022-08-05 08:30] VITALS: BP 126/61
[2022-08-05] MEDS: APIXABAN 5 MG TAB PO SCH ×2 (10:32→21:47)
[2022-08-05] MEDS: CLOPIDOGREL BISULFATE 75 MG TAB PO SCH (10:33)
[2022-08-05] MEDS: NITROGLYCERIN 0.4MG/HR TOPICAL PATCH TD SCH (10:34)
[2022-08-05] MEDS: PANTOPRAZOLE 40 MG/10 ML VIAL INJ IV SCH (10:34)
[2022-08-05] MEDS: FUROSEMIDE 40 MG/4 ML VIAL IV SCH (10:35)
[2022-08-05] MEDS: MORPHINE SULFATE INJ 2 MG/ml SYRG IV PRN (12:05)
[2022-08-05 12:30] VITALS: BP 132/66
[2022-08-05 16:44] VITALS: BP 128/62
[2022-08-05] MEDS: Ensure HIGH Protein Chocolate 8oz Bottle PO SCH (19:29)
[2022-08-05] MEDS: VANCOMYCIN 1GM/250ML 250 ML IV SCH (19:31)
[2022-08-05 22:00] VITALS: BP 139/68
[2022-08-06] MEDS: ALBUTEROL SULF 2.5 MG/0.5ML(0.5%) NEB SOLN NEB SCH ×6 (02:07→22:14)
[2022-08-06] MEDS: HYDROmorphone HCL 2 MG/ML VL/or syr IV PRN ×5 (02:38→20:12)
[2022-08-06 05:00] VITALS: BP 125/56
[2022-08-06] MEDS: buPROPion HCL 75 MG TAB PO SCH (06:22)
[2022-08-06] MEDS: CEFEPIME 2 GM in SODIUM CHL 0.9% 50 ML IV SCH ×2 (06:22→17:45)
[2022-08-06 09:00] VITALS: BP 183/57
[2022-08-06] MEDS: NITROGLYCERIN 0.4MG/HR TOPICAL PATCH TD SCH (10:30)
[2022-08-06] MEDS: PANTOPRAZOLE 40 MG/10 ML VIAL INJ IV SCH (10:30)
[2022-08-06] MEDS: FUROSEMIDE 40 MG/4 ML VIAL IV SCH (10:31)
[2022-08-06] MEDS: APIXABAN 5 MG TAB PO SCH ×2 (10:31→22:06)
[2022-08-06] MEDS: CLOPIDOGREL BISULFATE 75 MG TAB PO SCH (10:31)
[2022-08-06 13:00] VITALS: BP 106/67
[2022-08-06] MEDS: VANCOMYCIN 1GM/250ML 250 ML IV SCH (13:17)
[2022-08-06 17:00] VITALS: BP 144/74
[2022-08-06] MEDS: Ensure HIGH Protein Chocolate 8oz Bottle PO SCH (20:00)
[2022-08-06 22:00] VITALS: BP 122/67
[2022-08-07] MEDS: LACTULOSE 20Gm/30ML SOLN PO SCH ×3 (00:29→21:45)
[2022-08-07] MEDS: CEFEPIME 2 GM in SODIUM CHL 0.9% 50 ML IV SCH ×3 (00:29→16:10)
[2022-08-07] MEDS: HYDROmorphone HCL 2 MG/ML VL/or syr IV PRN ×5 (00:30→20:44)
[2022-08-07] MEDS: ALBUTEROL SULF 2.5 MG/0.5ML(0.5%) NEB SOLN NEB SCH ×6 (02:00→22:19)
[2022-08-07 05:00] VITALS: BP 147/65
[2022-08-07 05:25] LABS: Basophils # (auto) 0 10 ^3/uL (0-0.2); Eosinophils # (auto) 0.1 10 ^3/uL (0-0.8); Hemoglobin 9.4 g/dL (13.5-17.5); Mean Corpuscular Volume 68.5 fL (80.0-100.0); Monocytes # (auto) 0.6 10 ^3/uL (0-1.3); Neutrophils # (auto) 4.2 10 ^3/uL (1.6-8.6); Nucleated Red Blood Cells % 0.1 %; Red Blood Cells 4.33 10^6/uL (4.5-5.90)
[2022-08-07 05:26] LABS: Basophils % (auto) 0.4 % (0.0-2.0); Eosinophils % (auto) 1.7 % (0.0-7.0); Hematocrit 29.7 % (41.0-53.0); Lymphocytes # (auto) 1.2 10 ^3/uL (0.4-5.4); Lymphocytes % (auto) 19.4 % (10.0-50.0); Mean Corpuscular Hemoglobin 21.6 pg (28.0-32.0); Mean Corpuscular Hgb Conc. 31.5 g/dL (32.0-36.0); Monocytes % (auto) 9.6 % (0.0-12.0); Neutrophils % (auto) 68.9 % (37.0-80.0); Red Cell Distribution Width 19.2 % (11.8-14.3)
[2022-08-07 05:48] LABS: Potassium 4.3 mmol/L (3.5-5.1)
[2022-08-07 05:54] LABS: Albumin 2.9 g/dL (3.4-5.0); BUN/Creatinine Ratio 25.6 (10.0-20.0); Bilirubin, Total 0.4 mg/dL (0.2-1.0); Calcium 9.1 mg/dL (8.5-10.1); Phosphorus 3.2 mg/dL (2.5-4.90); Total Protein 6.2 g/dL (6.4-8.2)
[2022-08-07] MEDS: VANCOMYCIN 1GM/250ML 250 ML IV SCH (06:56)
[2022-08-07] MEDS: buPROPion HCL 75 MG TAB PO SCH (06:57)
[2022-08-07 09:00] VITALS: BP 119/57
[2022-08-07] MEDS: FUROSEMIDE 40 MG/4 ML VIAL IV SCH (10:00)
[2022-08-07] MEDS: PANTOPRAZOLE 40 MG/10 ML VIAL INJ IV SCH (10:26)
[2022-08-07] MEDS: APIXABAN 5 MG TAB PO SCH (10:27)
[2022-08-07] MEDS: CLOPIDOGREL BISULFATE 75 MG TAB PO SCH (10:27)
[2022-08-07 10:31] VITALS: BP 125/68
[2022-08-07 13:00] VITALS: BP 129/66
[2022-08-07 17:00] VITALS: BP 162/76
[2022-08-07] MEDS: NITROGLYCERIN 0.4MG/HR TOPICAL PATCH TD SCH (17:22)
[2022-08-07] MEDS: Ensure HIGH Protein Chocolate 8oz Bottle PO SCH (18:48)
[2022-08-07 22:17] VITALS: BP 160/68
[2022-08-07] MEDS: cefTRIAXone 1GM/50ML D5W 50 ML IV SCH (22:56)
[2022-08-08] MEDS: ALBUTEROL SULF 2.5 MG/0.5ML(0.5%) NEB SOLN NEB SCH ×6 (02:13→21:41)
[2022-08-08] MEDS: HYDROmorphone HCL 2 MG/ML VL/or syr IV PRN ×5 (03:07→23:56)
[2022-08-08 05:50] VITALS: BP 117/52
[2022-08-08] MEDS: buPROPion HCL 75 MG TAB PO SCH (06:10)
[2022-08-08 08:30] VITALS: BP 121/57
[2022-08-08] MEDS: FUROSEMIDE 40 MG/4 ML VIAL IV SCH (10:00)
[2022-08-08 10:43] LABS: Basophils # (auto) 0 10 ^3/uL (0-0.2); Basophils % (auto) 0.2 % (0.0-2.0); Eosinophils # (auto) 0 10 ^3/uL (0-0.8); Eosinophils % (auto) 0.3 % (0.0-7.0); Monocytes # (auto) 0.5 10 ^3/uL (0-1.3); Monocytes % (auto) 5.3 % (0.0-12.0)
[2022-08-08 10:47] LABS: Hematocrit 31.4 % (41.0-53.0); Hemoglobin 9.9 g/dL (13.5-17.5); Lymphocytes # (auto) 0.6 10 ^3/uL (0.4-5.4); Lymphocytes % (auto) 5.8 % (10.0-50.0); Mean Corpuscular Hemoglobin 21.7 pg (28.0-32.0); Mean Corpuscular Hgb Conc. 31.4 g/dL (32.0-36.0); Neutrophils % (auto) 88.4 % (37.0-80.0); Red Blood Cells 4.55 10^6/uL (4.5-5.90); Red Cell Distribution Width 19.3 % (11.8-14.3); White Blood Cell 10.1 10^3/uL (4.4-10.8)
[2022-08-08] MEDS: NITROGLYCERIN 0.4MG/HR TOPICAL PATCH TD SCH (10:58)
[2022-08-08] MEDS: LACTULOSE 20Gm/30ML SOLN PO SCH ×2 (11:00→22:00)
[2022-08-08] MEDS: cefTRIAXone 1GM/50ML D5W 50 ML IV SCH (11:00)
[2022-08-08] MEDS: PANTOPRAZOLE 40 MG/10 ML VIAL INJ IV SCH (11:00)
[2022-08-08] MEDS: CLOPIDOGREL BISULFATE 75 MG TAB PO SCH (11:01)
[2022-08-08 11:08] LABS: Albumin 2.6 g/dL (3.4-5.0); Calcium 8.8 mg/dL (8.5-10.1); Potassium 3.9 mmol/L (3.5-5.1)
[2022-08-08 11:11] LABS: BUN/Creatinine Ratio 25.7 (10.0-20.0); Bilirubin, Total 0.7 mg/dL (0.2-1.0); Total Protein 5.8 g/dL (6.4-8.2)
[2022-08-08 14:22] VITALS: BP 121/53
[2022-08-08 16:52] VITALS: BP 119/66
[2022-08-08] MEDS: Ensure HIGH Protein Chocolate 8oz Bottle PO SCH (18:07)
[2022-08-08 22:07] VITALS: BP 124/51
[2022-08-09] MEDS ORDERED: METOPROLOL TARTRATE 1MG/1ML-5ML VIAL IV ONE (01:15)
[2022-08-09] MEDS: METOPROLOL TARTRATE 25 MG TAB PO SCH ×3 (01:22→22:00)
[2022-08-09] MEDS: ALBUTEROL SULF 2.5 MG/0.5ML(0.5%) NEB SOLN NEB SCH ×6 (02:00→22:49)
[2022-08-09] MEDS: HYDROmorphone HCL 2 MG/ML VL/or syr IV PRN ×2 (04:05→21:50)
[2022-08-09 05:55] VITALS: BP 93/48
[2022-08-09] MEDS: buPROPion HCL 75 MG TAB PO SCH (06:07)
[2022-08-09 09:00] VITALS: BP 107/48
[2022-08-09] MEDS: cefTRIAXone 1GM/50ML D5W 50 ML IV SCH (09:00)
[2022-08-09] MEDS: FUROSEMIDE 40 MG/4 ML VIAL IV SCH (10:00)
[2022-08-09] MEDS: PANTOPRAZOLE 40 MG/10 ML VIAL INJ IV SCH (10:00)
[2022-08-09] MEDS: LACTULOSE 20Gm/30ML SOLN PO SCH ×2 (10:00→21:58)
[2022-08-09] MEDS ORDERED: METOPROLOL TARTRATE 25 MG TAB PO SCH (10:00)
[2022-08-09 12:55] VITALS: BP 108/37
[2022-08-09 17:00] VITALS: BP 100/44
[2022-08-09] MEDS: Ensure HIGH Protein Chocolate 8oz Bottle PO SCH (18:27)
[2022-08-09] MEDS: CLOPIDOGREL BISULFATE 75 MG TAB PO SCH (18:57)
[2022-08-09] MEDS: NITROGLYCERIN 0.4MG/HR TOPICAL PATCH TD SCH (18:57)
[2022-08-09 21:47] VITALS: BP 115/50
[2022-08-10] MEDS: ALBUTEROL SULF 2.5 MG/0.5ML(0.5%) NEB SOLN NEB SCH ×6 (01:33→21:25)
[2022-08-10] MEDS: HYDROmorphone HCL 2 MG/ML VL/or syr IV PRN ×4 (04:19→22:28)
[2022-08-10 05:08] VITALS: BP 119/69
[2022-08-10] MEDS: buPROPion HCL 75 MG TAB PO SCH (06:10)
[2022-08-10 08:30] VITALS: BP 114/47
[2022-08-10] MEDS: cefTRIAXone 1GM/50ML D5W 50 ML IV SCH (09:12)
[2022-08-10] MEDS: LACTULOSE 20Gm/30ML SOLN PO SCH ×2 (10:00→22:00)
[2022-08-10] MEDS: METOPROLOL TARTRATE 25 MG TAB PO SCH ×2 (10:00→22:00)
[2022-08-10] MEDS: FUROSEMIDE 40 MG/4 ML VIAL IV SCH (10:00)
[2022-08-10 10:03] VITALS: BP 106/54
[2022-08-10] MEDS: NITROGLYCERIN 0.4MG/HR TOPICAL PATCH TD SCH (10:20)
[2022-08-10] MEDS: PANTOPRAZOLE 40 MG/10 ML VIAL INJ IV SCH (10:20)
[2022-08-10] MEDS: CLOPIDOGREL BISULFATE 75 MG TAB PO SCH (10:20)
[2022-08-10 12:21] VITALS: BP 116/49
[2022-08-10 16:46] VITALS: BP 119/51
[2022-08-10] MEDS: Ensure HIGH Protein Chocolate 8oz Bottle PO SCH (18:43)
[2022-08-10 22:00] VITALS: BP 101/50
[2022-08-11] MEDS: ALBUTEROL SULF 2.5 MG/0.5ML(0.5%) NEB SOLN NEB SCH ×6 (01:48→21:58)
[2022-08-11 05:00] VITALS: BP 121/52
[2022-08-11] MEDS: HYDROmorphone HCL 2 MG/ML VL/or syr IV PRN ×5 (05:24→22:56)
[2022-08-11] MEDS: buPROPion HCL 75 MG TAB PO SCH (05:58)
[2022-08-11 09:00] VITALS: BP 128/59
[2022-08-11] MEDS: FUROSEMIDE 40 MG/4 ML VIAL IV SCH (10:00)
[2022-08-11] MEDS: LACTULOSE 20Gm/30ML SOLN PO SCH ×2 (10:00→22:12)
[2022-08-11] MEDS: CLOPIDOGREL BISULFATE 75 MG TAB PO SCH (10:01)
[2022-08-11] MEDS: METOPROLOL TARTRATE 25 MG TAB PO SCH ×2 (10:02→22:13)
[2022-08-11] MEDS: PANTOPRAZOLE 40 MG/10 ML VIAL INJ IV SCH (10:02)
[2022-08-11] MEDS: NITROGLYCERIN 0.4MG/HR TOPICAL PATCH TD SCH (10:03)
[2022-08-11 13:00] VITALS: BP 115/51
[2022-08-11 13:48] LABS: Albumin 2.7 g/dL (3.4-5.0); Calcium 8.7 mg/dL (8.5-10.1); Hematocrit 31.4 % (41.0-53.0); Hemoglobin 9.6 g/dL (13.5-17.5); Mean Corpuscular Hemoglobin 21.2 pg (28.0-32.0); Mean Corpuscular Hgb Conc. 30.6 g/dL (32.0-36.0); Mean Corpuscular Volume 69.3 fL (80.0-100.0); Potassium 3.9 mmol/L (3.5-5.1); Red Blood Cells 4.53 10^6/uL (4.5-5.90); Red Cell Distribution Width 19.4 % (11.8-14.3); White Blood Cell 7.7 10^3/uL (4.4-10.8)
[2022-08-11 13:50] LABS: Basophils % (manual) 0 (0.0-2.0); Blast Cells 0; Eosinophils % (manual) 0 (0-7); Metamyelocytes % 0; Myelocytes % 0; Promyelocytes % 0; Reactive Lymphocytes 0
[2022-08-11 13:53] LABS: Bilirubin, Total 0.5 mg/dL (0.2-1.0); Total Protein 6.5 g/dL (6.4-8.2)
[2022-08-11 14:32] LABS: Band Neutrophils % (manual) 1; Lymphocytes % (manual) 16 (10.0-50.0); Monocytes % (manual) 7 (0-12)
[2022-08-11 17:00] VITALS: BP 113/45
[2022-08-11] MEDS: Ensure HIGH Protein Chocolate 8oz Bottle PO SCH (19:52)
[2022-08-11 22:27] VITALS: BP 128/52
[2022-08-12] MEDS: ALBUTEROL SULF 2.5 MG/0.5ML(0.5%) NEB SOLN NEB SCH ×6 (02:05→22:51)
[2022-08-12] MEDS: HYDROmorphone HCL 2 MG/ML VL/or syr IV PRN ×5 (03:35→22:38)
[2022-08-12 05:00] VITALS: BP 121/52
[2022-08-12] MEDS: buPROPion HCL 75 MG TAB PO SCH (06:11)
[2022-08-12 09:00] VITALS: BP 126/61
[2022-08-12] MEDS: LACTULOSE 20Gm/30ML SOLN PO SCH ×2 (10:00→22:31)
[2022-08-12] MEDS: FUROSEMIDE 40 MG/4 ML VIAL IV SCH (10:00)
[2022-08-12] MEDS: PANTOPRAZOLE 40 MG/10 ML VIAL INJ IV SCH (10:51)
[2022-08-12] MEDS: CLOPIDOGREL BISULFATE 75 MG TAB PO SCH (10:51)
[2022-08-12] MEDS: NITROGLYCERIN 0.4MG/HR TOPICAL PATCH TD SCH (10:56)
[2022-08-12] MEDS: METOPROLOL TARTRATE 25 MG TAB PO SCH ×2 (11:33→22:00)
[2022-08-12 12:00] VITALS: BP 121/64
[2022-08-12 16:36] VITALS: BP 115/59
[2022-08-12] MEDS: Ensure HIGH Protein Chocolate 8oz Bottle PO SCH (18:21)
[2022-08-12 22:00] VITALS: BP 131/52
[2022-08-13] MEDS: ALBUTEROL SULF 2.5 MG/0.5ML(0.5%) NEB SOLN NEB SCH ×6 (02:39→22:09)
[2022-08-13] MEDS: HYDROmorphone HCL 2 MG/ML VL/or syr IV PRN ×5 (03:08→22:29)
[2022-08-13 05:00] VITALS: BP 131/52
[2022-08-13] MEDS: buPROPion HCL 75 MG TAB PO SCH (06:06)
[2022-08-13 08:30] VITALS: BP 152/73
[2022-08-13 08:40] VITALS: BP 152/73
[2022-08-13] MEDS: FUROSEMIDE 40 MG/4 ML VIAL IV SCH (10:00)
[2022-08-13] MEDS: CLOPIDOGREL BISULFATE 75 MG TAB PO SCH (10:00)
[2022-08-13] MEDS: PANTOPRAZOLE 40 MG/10 ML VIAL INJ IV SCH (11:35)
[2022-08-13] MEDS: LACTULOSE 20Gm/30ML SOLN PO SCH ×2 (11:35→22:29)
[2022-08-13] MEDS: METOPROLOL TARTRATE 25 MG TAB PO SCH ×2 (11:37→22:30)
[2022-08-13] MEDS: NITROGLYCERIN 0.4MG/HR TOPICAL PATCH TD SCH (11:37)
[2022-08-13 12:30] VITALS: BP 138/54
[2022-08-13 17:12] VITALS: BP 128/56
[2022-08-13] MEDS: Ensure HIGH Protein Chocolate 8oz Bottle PO SCH (18:59)
[2022-08-13 22:00] VITALS: BP 133/59
[2022-08-14] MEDS: ALBUTEROL SULF 2.5 MG/0.5ML(0.5%) NEB SOLN NEB SCH ×6 (02:00→21:59)
[2022-08-14] MEDS: HYDROmorphone HCL 2 MG/ML VL/or syr IV PRN ×4 (03:43→17:18)
[2022-08-14 05:00] VITALS: BP 120/49
[2022-08-14] MEDS: buPROPion HCL 75 MG TAB PO SCH (06:30)
[2022-08-14] MEDS: PANTOPRAZOLE 40 MG/10 ML VIAL INJ IV SCH (08:33)
[2022-08-14] MEDS: LACTULOSE 20Gm/30ML SOLN PO SCH ×2 (08:33→22:36)
[2022-08-14] MEDS: FUROSEMIDE 40 MG/4 ML VIAL IV SCH (08:34)
[2022-08-14] MEDS: CLOPIDOGREL BISULFATE 75 MG TAB PO SCH (08:35)
[2022-08-14] MEDS: METOPROLOL TARTRATE 25 MG TAB PO SCH ×2 (08:35→22:38)
[2022-08-14 09:00] VITALS: BP 124/57
[2022-08-14] MEDS: NITROGLYCERIN 0.4MG/HR TOPICAL PATCH TD SCH (12:20)
[2022-08-14 13:00] VITALS: BP 132/56
[2022-08-14 17:00] VITALS: BP 133/56
[2022-08-14] MEDS ORDERED: ALBUTEROL SULF 2.5 MG/0.5ML(0.5%) NEB SOLN ONE (18:01)
[2022-08-14 18:20] LABS: Basophils # (auto) 0 10 ^3/uL (0-0.2); Eosinophils # (auto) 0 10 ^3/uL (0-0.8); Hemoglobin 9.9 g/dL (13.5-17.5); Monocytes # (auto) 0.4 10 ^3/uL (0-1.3); Nucleated Red Blood Cells % 0.3 %; White Blood Cell 7.6 10^3/uL (4.4-10.8)
[2022-08-14 18:22] LABS: Basophils % (auto) 0.5 % (0.0-2.0); Eosinophils % (auto) 0.4 % (0.0-7.0); Hematocrit 33.1 % (41.0-53.0); Lymphocytes % (auto) 12.7 % (10.0-50.0); Mean Corpuscular Hemoglobin 21.3 pg (28.0-32.0); Mean Corpuscular Volume 71.2 fL (80.0-100.0); Monocytes % (auto) 5.5 % (0.0-12.0); Neutrophils # (auto) 6.2 10 ^3/uL (1.6-8.6); Neutrophils % (auto) 80.9 % (37.0-80.0); Red Blood Cells 4.65 10^6/uL (4.5-5.90); Red Cell Distribution Width 19.8 % (11.8-14.3)
[2022-08-14 18:30] LABS: Calcium 9.3 mg/dL (8.5-10.1); Potassium 4.8 mmol/L (3.5-5.1)
[2022-08-14 18:38] LABS: Bilirubin, Total 0.4 mg/dL (0.2-1.0); CRP High Sensitivity 1.97 mg/dL (< 0.3); Total Protein 6.9 g/dL (6.4-8.2)
[2022-08-14] MEDS: Ensure HIGH Protein Chocolate 8oz Bottle PO SCH (19:01)
[2022-08-14 22:00] VITALS: BP 131/56
[2022-08-15] MEDS: HYDROmorphone HCL 2 MG/ML VL/or syr IV PRN ×4 (00:26→18:02)
[2022-08-15] MEDS: ALBUTEROL SULF 2.5 MG/0.5ML(0.5%) NEB SOLN NEB SCH ×4 (01:51→14:51)
[2022-08-15 05:00] VITALS: BP 122/52
[2022-08-15] MEDS: buPROPion HCL 75 MG TAB PO SCH (06:04)
[2022-08-15] MEDS: PANTOPRAZOLE 40 MG/10 ML VIAL INJ IV SCH (09:12)
[2022-08-15] MEDS: FUROSEMIDE 40 MG/4 ML VIAL IV SCH (09:12)
[2022-08-15] MEDS: CLOPIDOGREL BISULFATE 75 MG TAB PO SCH (09:13)
[2022-08-15] MEDS: LACTULOSE 20Gm/30ML SOLN PO SCH (09:13)
[2022-08-15] MEDS: METOPROLOL TARTRATE 25 MG TAB PO SCH (09:15)
[2022-08-15] MEDS: NITROGLYCERIN 0.4MG/HR TOPICAL PATCH TD SCH (09:17)
[2022-08-15 09:24] VITALS: BP 122/58
[2022-08-15 13:00] VITALS: BP 112/49
[2022-08-15 16:02] VITALS: BP 112/49
[2022-08-15 17:00] VITALS: BP 129/53
[2022-08-15 18:02] VITALS: BP 129/53
== END 2022-08-15 18:07 | DRG 280 ==
LOC: ER 00:13 → EDBD 00:13 → TELE 02:32 → TELE-EAST 07-30 21:19
PROVIDERS: ADMIT Specialist; ATTEND Specialist
PROC: 05HY33Z Insertion of Infusion Device into Upper Vein, Percutaneous Approach (ICD-10-PCS; 2022-08-01)
PROC: B54MZZA Ultrasonography of Right Upper Extremity Veins, Guidance (ICD-10-PCS; 2022-08-01)
PROC: 0W9930Z Drainage of Right Pleural Cavity with Drainage Device, Percutaneous Approach (ICD-10-PCS; principal; 2022-08-07)
PROC: 02HV33Z Insertion of Infusion Device into Superior Vena Cava, Percutaneous Approach (ICD-10-PCS; 2022-08-08)
PROC: B548ZZA Ultrasonography of Superior Vena Cava, Guidance (ICD-10-PCS; 2022-08-08)
DX: I21.4 Non-ST elevation (NSTEMI) myocardial infarction (principal); E43 Unspecified severe protein-calorie malnutrition; J18.9 Pneumonia, unspecified organism; I50.31 Acute diastolic (congestive) heart failure; J96.01 Acute respiratory failure with hypoxia; R53.2 Functional quadriplegia; I13.0 Hypertensive heart and chronic kidney disease with heart failure and stage 1 through stage 4 chronic kidney disease, or unspecified chronic kidney disease; F11.20 Opioid dependence, uncomplicated; G95.9 Disease of spinal cord, unspecified; J44.0 Chronic obstructive pulmonary disease with (acute) lower respiratory infection; J81.1 Chronic pulmonary edema; E11.22 Type 2 diabetes mellitus with diabetic chronic kidney disease; E78.00 Pure hypercholesterolemia, unspecified; I25.119 Atherosclerotic heart disease of native coronary artery with unspecified angina pectoris; G89.29 Other chronic pain; Z20.822 Contact with and (suspected) exposure to COVID-19; Z53.20 Procedure and treatment not carried out because of patient's decision for unspecified reasons; I25.5 Ischemic cardiomyopathy; I35.0 Nonrheumatic aortic (valve) stenosis; N18.9 Chronic kidney disease, unspecified; F32.A Depression, unspecified; K21.9 Gastro-esophageal reflux disease without esophagitis; M47.812 Spondylosis without myelopathy or radiculopathy, cervical region; K59.00 Constipation, unspecified; Z68.25 Body mass index [BMI] 25.0-25.9, adult; Z79.02 Long term (current) use of antithrombotics/antiplatelets; Z79.84 Long term (current) use of oral hypoglycemic drugs; Z79.899 Other long term (current) drug therapy; Z82.49 Family history of ischemic heart disease and other diseases of the circulatory system; Z83.3 Family history of diabetes mellitus; Z86.73 Personal history of transient ischemic attack (TIA), and cerebral infarction without residual deficits; Z87.891 Personal history of nicotine dependence; Z88.6 Allergy status to analgesic agent; Z91.199 Patient's noncompliance with other medical treatment and regimen due to unspecified reason; Z95.1 Presence of aortocoronary bypass graft; Z95.2 Presence of prosthetic heart valve; Z95.5 Presence of coronary angioplasty implant and graft; Z99.3 Dependence on wheelchair
CPT/HCPCS: 36415; 71045; 76604; 76942; 80053; 80061; 80202; 83735; 83880; 84100; 84484; 85007; 85025; 85027; 85610; 85730; 86141; 87040; 87070; 87081; 87205; 87426; 89051; 93005; 94640; 96365; 96367; 96372; 96375; 96376; 97110; 97116; 97163; 97530; 99291; C9113; G0378; J0696; J1100

== ENCOUNTER 2022-11-29 02:01 | Inpatient (IN) | payer MEDICARE, MEDICAID ==
[~2022-11-29] VITALS: Ht 177.8 cm; Wt 40.0 kg
[~2022-11-29 02:01] MED LIST changes: +ASPI81CH59 PO; +ATOR-47 PO; -ATOR40TA52; -BUPR75TA10 PO; +CARB25TA77 PO; -CLOP75TA70; +FURO20TA3 PO; -HYDR1SOL36; -KEP500T PO; -LISI-716 PO; +LISI10TA34 PO; -POT10T PO; -ROSU40TA PO; +ROSU40TA81 PO; -SUCR1SUS10 GT; +SUCR1TAB22 OR; -TORS20TA19 GT
[2022-11-29 02:56] LABS: Albumin 2.9 g/dL (3.4-5.0); Calcium 8.7 mg/dL (8.5-10.1); Hemoglobin 9.9 g/dL (13.5-17.5); Magnesium 2.5 mg/dL (1.6-2.6); Monocytes # (auto) 0.4 10 ^3/uL (0-1.3); Potassium 4.7 mmol/L (3.5-5.1)
[2022-11-29 02:58] VITALS: PULSE 69; RESP 14; O2SAT 94
[2022-11-29 02:58] LABS: Basophils # (auto) 0.1 10 ^3/uL (0-0.2); Basophils % (auto) 0.9 % (0.0-2.0); Eosinophils # (auto) 0.2 10 ^3/uL (0-0.8); Hematocrit 32.8 % (41.0-53.0); Lymphocytes # (auto) 1.1 10 ^3/uL (0.4-5.4); Lymphocytes % (auto) 20.1 % (10.0-50.0); Mean Corpuscular Hemoglobin 21.7 pg (28.0-32.0); Mean Corpuscular Hgb Conc. 30.1 g/dL (32.0-36.0); Monocytes % (auto) 7.2 % (0.0-12.0); Neutrophils # (auto) 3.8 10 ^3/uL (1.6-8.6); Neutrophils % (auto) 67.8 % (37.0-80.0); Red Blood Cells 4.56 10^6/uL (4.5-5.90); White Blood Cell 5.6 10^3/uL (4.4-10.8)
[2022-11-29 03:00] LABS: BUN/Creatinine Ratio 12.9 (10.0-20.0); Bilirubin, Total 0.2 mg/dL (0.2-1.0); Total Protein 6.4 g/dL (6.4-8.2)
[2022-11-29 03:09] LABS: Red Cell Distribution Width 20.3 % (11.8-14.3)
[2022-11-29 03:14] LABS: INR 1.14 (0.9-1.15); Partial Thromboplastin Time 32.3 SEC (24.5-34.5); Prothrombin Time 11.9 sec (9.3-11.8)
[2022-11-29] MEDS ORDERED: cefTRIAXone 1GM/50ML D5W 50 ML IV ONE (04:30)
[2022-11-29] MEDS ORDERED: FUROSEMIDE 20 MG/2 ML VIAL IV ONE (04:30)
[2022-11-29] MEDS ORDERED: HYDROmorphone HCL 2 MG/ML VL/or syr IV ONE (05:00)
[2022-11-29] MEDS ORDERED: NITROGLYCERIN 0.4 MG SL TAB SL PRN ×2 (07:30→10:00)
[2022-11-29] MEDS ORDERED: ASPirin-EC 81 mg tab PO ONE (07:30)
[2022-11-29] MEDS ORDERED: PANTOPRAZOLE 40 MG TAB PO ONE (07:30)
[2022-11-29] MEDS ORDERED: HYDROmorphone HCL 2 MG/ML VL/or syr IV PRN (07:30)
[2022-11-29] MEDS ORDERED: METOPROLOL SUCCINATE XL 50 MG TAB PO ONE (07:30)
[2022-11-29] MEDS ORDERED: ATORVASTATIN 20 MG TAB PO ONE (07:30)
[2022-11-29] MEDS ORDERED: PREGABALIN 25 MG CAP PO ONE (07:30)
[2022-11-29] MEDS ORDERED: ALBUTEROL SULF 2.5 MG/0.5ML(0.5%) NEB SOLN NEB PRN ×2 (07:30→10:15)
[2022-11-29 08:26] VITALS: PULSE 73; RESP 16; O2SAT 95
[2022-11-29] MEDS ORDERED: LISINOPRIL 10 MG TAB PO SCH (10:00)
[2022-11-29] MEDS ORDERED: APIXABAN 5 MG TAB PO SCH (10:00)
[2022-11-29] MEDS ORDERED: levETIRAcetam 500 MG TAB PO SCH (10:00)
[2022-11-29] MEDS ORDERED: CLOPIDOGREL BISULFATE 75 MG TAB PO SCH (10:00)
[2022-11-29] MEDS ORDERED: FUROSEMIDE 20 MG TAB PO SCH (10:00)
[2022-11-29] MEDS ORDERED: ONDANSETRON HCL 4 MG/2 ML VIAL IV PRN (10:00)
[2022-11-29] MEDS ORDERED: SACUBITRIL-VALSARTAN 24mg/26mg TAB PO SCH (10:00)
[2022-11-29] MEDS ORDERED: SENNA 8.6 MG TAB PO SCH (10:00)
[2022-11-29] MEDS ORDERED: DEXTROSE (50%) 50ML SYRG IV PRN (10:00)
[2022-11-29] MEDS ORDERED: POTASSIUM CHLORIDE 8 MEQ TAB PO SCH (10:00)
[2022-11-29] MEDS ORDERED: PANTOPRAZOLE 40 MG TAB PO SCH (10:00)
[2022-11-29 10:13] VITALS: BP 150/56; PULSE 76; RESP 18; O2SAT 95
[2022-11-29] MEDS ORDERED: IPRATROPIUM BROM 0.5 MG/2.5ML INH SOL NEB PRN (10:15)
[2022-11-29] MEDS: APIXABAN 5 MG TAB PO SCH ×2 (10:40→22:00)
[2022-11-29] MEDS: FUROSEMIDE 40 MG/4 ML VIAL IV SCH (10:40)
[2022-11-29] MEDS: levETIRAcetam 500 MG TAB PO SCH ×2 (10:40→22:00)
[2022-11-29] MEDS: METOPROLOL SUCCINATE XL 50 MG TAB PO SCH (10:40)
[2022-11-29] MEDS: ATORVASTATIN 20 MG TAB PO SCH (10:57)
[2022-11-29] MEDS: levoFLOXacin 500MG 100 ML IV SCH (10:57)
[2022-11-29] MEDS: SENNA 8.6 MG TAB PO SCH (10:57)
[2022-11-29] MEDS: PANTOPRAZOLE 40 MG TAB PO SCH (10:58)
[2022-11-29] MEDS: CLOPIDOGREL BISULFATE 75 MG TAB PO SCH (10:58)
[2022-11-29] MEDS: SACUBITRIL-VALSARTAN 24mg/26mg TAB PO SCH ×2 (10:58→22:00)
[2022-11-29] MEDS: ASPirin-EC 81 mg tab PO SCH (10:58)
[2022-11-29] MEDS: HYDROmorphone HCL 2 MG/ML VL/or syr IV PRN ×3 (11:20→20:29)
[2022-11-29] MEDS ORDERED: SUCRALFATE 1 GM TAB PO SCH (11:30)
[2022-11-29] MEDS: InsuLIN REG 1unit/0.01ml Soln (100units/ml) SC SCH ×3 (11:30→22:00)
[2022-11-29] MEDS: SUCRALFATE 1 GM TAB PO SCH ×3 (12:17→22:00)
[2022-11-29] MEDS: ACCU-CHEK COMFORT CURVE STRIP VI SCH ×3 (12:17→22:00)
[2022-11-29 12:36] VITALS: O2SAT 98
[2022-11-29 20:01] VITALS: PULSE 71; RESP 23; O2SAT 96
[2022-11-30] VITALS (10 sets, daily range): BP systolic 114–148; BP diastolic 48–70; PULSE 61–77; RESP 18–20; TEMP 97.4–98.1; O2SAT 96–100
[2022-11-30] MEDS: HYDROmorphone HCL 2 MG/ML VL/or syr IV PRN ×4 (00:53→20:57)
[2022-11-30] MEDS: ACCU-CHEK COMFORT CURVE STRIP VI SCH ×2 (06:50→11:10)
[2022-11-30] MEDS: InsuLIN REG 1unit/0.01ml Soln (100units/ml) SC SCH ×2 (06:50→11:10)
[2022-11-30] MEDS: SUCRALFATE 1 GM TAB PO SCH ×4 (06:50→21:59)
[2022-11-30] MEDS ORDERED: buPROPion HCL 75 MG TAB PO SCH (07:00)
[2022-11-30] MEDS: ASPirin-EC 81 mg tab PO SCH (09:30)
[2022-11-30] MEDS: ATORVASTATIN 20 MG TAB PO SCH (09:31)
[2022-11-30] MEDS: PANTOPRAZOLE 40 MG TAB PO SCH (09:31)
[2022-11-30] MEDS: SENNA 8.6 MG TAB PO SCH (09:31)
[2022-11-30] MEDS: CLOPIDOGREL BISULFATE 75 MG TAB PO SCH (09:31)
[2022-11-30] MEDS: APIXABAN 5 MG TAB PO SCH ×2 (09:31→22:00)
[2022-11-30] MEDS: FUROSEMIDE 40 MG/4 ML VIAL IV SCH (09:32)
[2022-11-30] MEDS: METOPROLOL SUCCINATE XL 50 MG TAB PO SCH (09:32)
[2022-11-30] MEDS: levoFLOXacin 500MG 100 ML IV SCH (09:32)
[2022-11-30] MEDS: levETIRAcetam 500 MG TAB PO SCH ×2 (09:32→21:59)
[2022-11-30] MEDS: SACUBITRIL-VALSARTAN 24mg/26mg TAB PO SCH ×2 (09:32→22:00)
[2022-11-30 14:38] LABS: Eosinophils # (auto) 0.2 10 ^3/uL (0-0.8); Hemoglobin 10.2 g/dL (13.5-17.5); Lymphocytes % (auto) 18.2 % (10.0-50.0); Mean Corpuscular Hemoglobin 21.6 pg (28.0-32.0); Monocytes # (auto) 0.5 10 ^3/uL (0-1.3); Neutrophils # (auto) 3.9 10 ^3/uL (1.6-8.6); Nucleated Red Blood Cells % 0.1 %; Red Blood Cells 4.72 10^6/uL (4.5-5.90); White Blood Cell 5.7 10^3/uL (4.4-10.8)
[2022-11-30 14:39] LABS: Basophils # (auto) 0.1 10 ^3/uL (0-0.2); Hematocrit 32.9 % (41.0-53.0); Mean Corpuscular Volume 69.7 fL (80.0-100.0); Neutrophils % (auto) 68.8 % (37.0-80.0)
[2022-11-30 14:43] LABS: Red Cell Distribution Width 20.9 % (11.8-14.3)
[2022-11-30 14:44] LABS: Albumin 2.9 g/dL (3.4-5.0); Calcium 8.7 mg/dL (8.5-10.1); Potassium 4.1 mmol/L (3.5-5.1)
[2022-11-30 14:47] LABS: BUN/Creatinine Ratio 15.1 (10.0-20.0); Bilirubin, Total 0.3 mg/dL (0.2-1.0); Total Protein 6.8 g/dL (6.4-8.2)
[2022-12-01] VITALS (10 sets, daily range): BP systolic 103–122; BP diastolic 44–55; PULSE 54–65; RESP 16–20; TEMP 96.8–98.4; O2SAT 94–99
[2022-12-01] MEDS: HYDROmorphone HCL 2 MG/ML VL/or syr IV PRN ×5 (01:44→21:16)
[2022-12-01] MEDS: SUCRALFATE 1 GM TAB PO SCH ×4 (06:30→22:46)
[2022-12-01] MEDS: levETIRAcetam 500 MG TAB PO SCH ×2 (10:00→22:00)
[2022-12-01] MEDS: METOPROLOL SUCCINATE XL 50 MG TAB PO SCH (11:28)
[2022-12-01] MEDS: CLOPIDOGREL BISULFATE 75 MG TAB PO SCH (11:29)
[2022-12-01] MEDS: APIXABAN 5 MG TAB PO SCH ×2 (11:29→22:45)
[2022-12-01] MEDS: PANTOPRAZOLE 40 MG TAB PO SCH (11:29)
[2022-12-01] MEDS: SACUBITRIL-VALSARTAN 24mg/26mg TAB PO SCH ×2 (11:29→22:00)
[2022-12-01] MEDS: ATORVASTATIN 20 MG TAB PO SCH (11:29)
[2022-12-01] MEDS: FUROSEMIDE 40 MG/4 ML VIAL IV SCH (11:29)
[2022-12-01] MEDS: SENNA 8.6 MG TAB PO SCH (13:39)
[2022-12-01 14:47] LABS: COVID19 ANTIGEN SOFIA FIA NEGATIVE (NEGATIVE)
[2022-12-02] VITALS (13 sets, daily range): BP systolic 103–129; BP diastolic 43–82; PULSE 54–86; RESP 16–20; TEMP 97.8–98.7; O2SAT 97–100
[2022-12-02] MEDS: HYDROmorphone HCL 2 MG/ML VL/or syr IV PRN ×2 (01:25→06:35)
[2022-12-02] MEDS: SUCRALFATE 1 GM TAB PO SCH ×4 (06:41→23:18)
[2022-12-02] MEDS: FUROSEMIDE 40 MG/4 ML VIAL IV SCH (09:32)
[2022-12-02] MEDS: SENNA 8.6 MG TAB PO SCH (10:00)
[2022-12-02] MEDS: PANTOPRAZOLE 40 MG TAB PO SCH (10:00)
[2022-12-02] MEDS: ATORVASTATIN 20 MG TAB PO SCH (10:00)
[2022-12-02] MEDS: levETIRAcetam 500 MG TAB PO SCH ×2 (10:00→23:18)
[2022-12-02] MEDS: METOPROLOL SUCCINATE XL 50 MG TAB PO SCH (10:00)
[2022-12-02] MEDS: SACUBITRIL-VALSARTAN 24mg/26mg TAB PO SCH ×2 (10:00→23:18)
[2022-12-02] MEDS: CLOPIDOGREL BISULFATE 75 MG TAB PO SCH (10:00)
[2022-12-02] MEDS: APIXABAN 5 MG TAB PO SCH ×2 (10:09→23:18)
[2022-12-03] MEDS: traMADol HCL 50 MG TAB PO PRN ×2 (00:29→20:20)
[2022-12-03 04:53] VITALS: BP 124/70; PULSE 58; RESP 20; TEMP 97.6; O2SAT 96
[2022-12-03] MEDS: SUCRALFATE 1 GM TAB PO SCH ×4 (06:02→20:19)
[2022-12-03 08:00] VITALS: BP 119/39; PULSE 64; RESP 18; O2SAT 97
[2022-12-03] MEDS: FUROSEMIDE 40 MG/4 ML VIAL IV SCH (10:00)
[2022-12-03] MEDS: PANTOPRAZOLE 40 MG TAB PO SCH (10:00)
[2022-12-03] MEDS: levETIRAcetam 500 MG TAB PO SCH ×2 (10:00→20:20)
[2022-12-03] MEDS: ATORVASTATIN 20 MG TAB PO SCH (10:00)
[2022-12-03] MEDS: SENNA 8.6 MG TAB PO SCH (10:00)
[2022-12-03] MEDS: APIXABAN 5 MG TAB PO SCH ×2 (10:00→20:20)
[2022-12-03] MEDS: CLOPIDOGREL BISULFATE 75 MG TAB PO SCH (10:00)
[2022-12-03] MEDS: SACUBITRIL-VALSARTAN 24mg/26mg TAB PO SCH ×2 (10:00→20:20)
[2022-12-03] MEDS: METOPROLOL SUCCINATE XL 50 MG TAB PO SCH (10:00)
[2022-12-03 10:14] VITALS: O2SAT 98
[2022-12-03 12:00] VITALS: BP 135/46; PULSE 62; RESP 18; TEMP 98.6; O2SAT 98
[2022-12-03 20:00] VITALS: BP 116/52; PULSE 64; RESP 16; TEMP 97.7; O2SAT 99
[2022-12-03 22:00] VITALS: BP 116/52; PULSE 64; RESP 16; TEMP 97.7; O2SAT 99
[2022-12-04] MEDS: traMADol HCL 50 MG TAB PO PRN ×2 (02:21→02:32)
[2022-12-04 05:00] VITALS: BP 127/52; PULSE 62; RESP 17; TEMP 97.8; O2SAT 99
[2022-12-04] MEDS: SUCRALFATE 1 GM TAB PO SCH ×2 (06:52→11:16)
[2022-12-04 08:00] VITALS: BP 129/52; PULSE 63; RESP 21; TEMP 97.6; O2SAT 100; O2SAT 97
[2022-12-04] MEDS: SACUBITRIL-VALSARTAN 24mg/26mg TAB PO SCH (09:48)
[2022-12-04] MEDS: CLOPIDOGREL BISULFATE 75 MG TAB PO SCH (09:49)
[2022-12-04] MEDS: levETIRAcetam 500 MG TAB PO SCH (09:51)
[2022-12-04] MEDS: ATORVASTATIN 20 MG TAB PO SCH (09:51)
[2022-12-04] MEDS: APIXABAN 5 MG TAB PO SCH (09:51)
[2022-12-04] MEDS: PANTOPRAZOLE 40 MG TAB PO SCH (09:51)
[2022-12-04] MEDS: FUROSEMIDE 40 MG/4 ML VIAL IV SCH (09:51)
[2022-12-04] MEDS: SENNA 8.6 MG TAB PO SCH (09:51)
[2022-12-04] MEDS: METOPROLOL SUCCINATE XL 50 MG TAB PO SCH (09:52)
[2022-12-04 12:00] VITALS: BP 136/69; PULSE 100; RESP 21; TEMP 97.9; O2SAT 90
== END 2022-12-04 13:02 | DRG 391 ==
LOC: EDBD 02:01 → ER 02:01 → UNDOADMIN 07:31 → TELE 07:31 → TELE-WESTW 21:24
PROVIDERS: ADMIT Internal Medicine; ATTEND Emergency Medicine
PROC: 05HB33Z Insertion of Infusion Device into Right Basilic Vein, Percutaneous Approach (ICD-10-PCS; principal; 2022-11-29)
PROC: B54MZZA Ultrasonography of Right Upper Extremity Veins, Guidance (ICD-10-PCS; 2022-11-29)
DX: K21.9 Gastro-esophageal reflux disease without esophagitis (principal); I50.43 Acute on chronic combined systolic (congestive) and diastolic (congestive) heart failure; E44.1 Mild protein-calorie malnutrition; G95.9 Disease of spinal cord, unspecified; I69.354 Hemiplegia and hemiparesis following cerebral infarction affecting left non-dominant side; I11.0 Hypertensive heart disease with heart failure; I25.10 Atherosclerotic heart disease of native coronary artery without angina pectoris; I25.5 Ischemic cardiomyopathy; E11.65 Type 2 diabetes mellitus with hyperglycemia; E78.5 Hyperlipidemia, unspecified; R56.9 Unspecified convulsions; M25.561 Pain in right knee; Z20.822 Contact with and (suspected) exposure to COVID-19; G20 Parkinson's disease; D63.8 Anemia in other chronic diseases classified elsewhere; J44.9 Chronic obstructive pulmonary disease, unspecified
CPT/HCPCS: 36415; 71045; 73030; 73562; 80053; 82962; 83036; 83735; 83880; 84443; 84484; 85025; 85379; 85610; 85730; 87081; 87426; 93005; 96365; 96367; 96375; 96376; G0378; J0696; J1956

== ENCOUNTER 2023-01-28 17:19 | Inpatient (IN) | payer MEDICARE, MEDICAID ==
[~2023-01-28] VITALS: Ht 188 cm; Wt 76.8 kg
[2023-01-28 18:07] LABS: Basophils # (auto) 0 10 ^3/uL (0-0.2); Eosinophils # (auto) 0.1 10 ^3/uL (0-0.8); Lymphocytes # (auto) 1.2 10 ^3/uL (0.4-5.4); Monocytes # (auto) 0.5 10 ^3/uL (0-1.3); Monocytes % (auto) 8.6 % (0.0-12.0); Neutrophils # (auto) 3.7 10 ^3/uL (1.6-8.6); White Blood Cell 5.5 10^3/uL (4.4-10.8)
[2023-01-28 18:09] LABS: Basophils % (auto) 0.8 % (0.0-2.0); Eosinophils % (auto) 2.1 % (0.0-7.0); Hematocrit 29.5 % (41.0-53.0); Hemoglobin 9.1 g/dL (13.5-17.5); Lymphocytes % (auto) 21.8 % (10.0-50.0); Mean Corpuscular Hemoglobin 21.6 pg (28.0-32.0); Mean Corpuscular Hgb Conc. 30.8 g/dL (32.0-36.0); Mean Corpuscular Volume 70.1 fL (80.0-100.0); Neutrophils % (auto) 66.7 % (37.0-80.0)
[2023-01-28 18:11] LABS: Red Cell Distribution Width 20.6 % (11.8-14.3)
[2023-01-28 18:19] LABS: Alkaline Phosphatase 97 U/L (46-116); Anion Gap 3 (5-15); Aspartate Aminotransferase < 8 U/L (13-40); BUN/Creatinine Ratio 13.5 (10.0-20.0); Blood Urea Nitrogen 12 mg/dL (9-23); Calcium 8.8 mg/dL (8.7-10.4); Carbon Dioxide 28 mmol/L (20-30); Chloride 108 mmol/L (98-107); Glucose 97 mg/dL (74-106); Potassium 4.7 mmol/L (3.5-5.1); Sodium 139 mmol/L (136-145)
[2023-01-28 18:20] LABS: Albumin 3.7 g/dL (3.2-4.8); Bilirubin, Total 0.2 mg/dL (0.2-1.0); Total Protein 6.4 g/dL (5.7-8.2)
[2023-01-28 18:22] LABS: Alanine Aminotransferase < 9 U/L (7-40)
[2023-01-28 18:25] VITALS: PULSE 69; RESP 20; O2SAT 100
[2023-01-28 19:45] VITALS: PULSE 77; RESP 18; O2SAT 99
[2023-01-28 19:51] LABS: Urine Bacteria NONE SEEN /hpf (None Seen); Urine Blood Negative /uL (Negative); Urine Clarity Clear (Clear); Urine Color Colorless (Yellow); Urine Protein, UAD Negative (Negative); Urine Specific Gravity 1.014 (1.001-1.035); Urine Urobilinogen Normal (Negative); Urine WBC 1 /hpf (0 - 3)
[2023-01-28] MEDS ORDERED: ONDANSETRON HCL 4 MG/2 ML VIAL IV ONE (20:30)
[2023-01-28] MEDS ORDERED: MORPHINE SULFATE INJ 2 MG/ml SYRG IV ONE (20:30)
[2023-01-28] MEDS ORDERED: SOD CHL 0.45% 1,000 ML IV ONE (22:15)
[2023-01-28] MEDS ORDERED: ALBUTEROL SULF 2.5 MG/0.5ML(0.5%) NEB SOLN NEB PRN (22:15)
[2023-01-28] MEDS ORDERED: NITROGLYCERIN 0.4 MG SL TAB SL PRN (22:15)
[2023-01-28] MEDS ORDERED: MORPHINE SULFATE INJ 2 MG/ml SYRG IV PRN (22:15)
[2023-01-28 23:01] VITALS: O2SAT 100
[2023-01-28 23:05] VITALS: BP 157/74; PULSE 70; RESP 20; TEMP 97.8; O2SAT 100
[2023-01-29] MEDS ORDERED: diphenhdrAMINE HCL 50 MG/1 ML VL IV ONE (00:15)
[2023-01-29] MEDS ORDERED: MORPHINE SULFATE 4 MG/ML SYR/VIAL IV ONE ×2 (00:15→07:00)
[2023-01-29] MEDS ORDERED: ONDANSETRON HCL 4 MG/2 ML VIAL IV ONE ×2 (00:15→07:00)
[2023-01-29] MEDS: CARBIDOPA W LEVODOPA CR 25/100mg TABLET PO SCH ×4 (06:00→17:54)
[2023-01-29 06:54] VITALS: O2SAT 99
[2023-01-29] MEDS: buPROPion HCL 75 MG TAB PO SCH (07:00)
[2023-01-29] MEDS: SUCRALFATE 1 GM TAB PO SCH ×4 (07:00→22:00)
[2023-01-29 08:22] VITALS: PULSE 62; RESP 19; O2SAT 96
[2023-01-29 09:07] LABS: INR 1.15 (0.9-1.15); Partial Thromboplastin Time 33.7 SEC (24.5-34.5)
[2023-01-29] MEDS ORDERED: POTASSIUM CHLORIDE 8 MEQ TAB PO SCH (10:00)
[2023-01-29] MEDS ORDERED: LISINOPRIL 10 MG TAB PO SCH (10:00)
[2023-01-29] MEDS ORDERED: PANTOPRAZOLE 40 MG/10 ML VIAL INJ IV SCH (10:00)
[2023-01-29] MEDS ORDERED: PANTOPRAZOLE 40 MG TAB PO SCH (10:00)
[2023-01-29] MEDS ORDERED: SACUBITRIL-VALSARTAN 24mg/26mg TAB PO SCH (10:00)
[2023-01-29] MEDS ORDERED: FUROSEMIDE 20 MG TAB PO SCH (10:00)
[2023-01-29] MEDS: SACUBITRIL-VALSARTAN 24mg/26mg TAB PO SCH ×3 (10:00→22:05)
[2023-01-29] MEDS: levETIRAcetam 500 MG TAB PO SCH ×2 (13:21→22:00)
[2023-01-29] MEDS: SENNA 8.6 MG TAB PO SCH (13:21)
[2023-01-29] MEDS: CLOPIDOGREL BISULFATE 75 MG TAB PO SCH (13:21)
[2023-01-29 13:30] VITALS: BP 128/48; PULSE 64; RESP 16; TEMP 98.3; O2SAT 98
[2023-01-29] MEDS ORDERED: DOXYCYCLINE 100MG/250ML 250 ML IV SCH (14:30)
[2023-01-29] MEDS ORDERED: FUROSEMIDE 20 MG/2 ML VIAL IV ONE (14:30)
[2023-01-29 17:00] VITALS: BP 115/44; PULSE 63; RESP 18; TEMP 97.9; O2SAT 99
[2023-01-29] MEDS: FUROSEMIDE 20 MG/2 ML VIAL IV SCH (17:54)
[2023-01-29] MEDS: DOXYCYCLINE 100MG/250ML 250 ML IV SCH (17:54)
[2023-01-29] MEDS: MORPHINE SULFATE INJ 2 MG/ml SYRG IV PRN ×2 (17:55→22:09)
[2023-01-29] MEDS ORDERED: IOHEXOL 300 MG/ML 100ML BOTTLE IJ ONE (18:40)
[2023-01-29 19:30] VITALS: PULSE 69; PULSE 70; RESP 16; O2SAT 97
[2023-01-29 22:00] VITALS: BP 103/40; PULSE 63; RESP 16; TEMP 98.7; O2SAT 97
[2023-01-29] MEDS: POTASSIUM CHL 10 Meq TABLET PO SCH (22:05)
[2023-01-29] MEDS: ATORVASTATIN 20 MG TAB PO SCH (22:05)
[2023-01-29] MEDS: PREGABALIN 25 MG CAP PO SCH (22:25)
[2023-01-29] MEDS: PIPERACILLIN-TAZOB 3.375GM 100 ML IV SCH (22:39)
[2023-01-30] VITALS (9 sets, daily range): BP systolic 100–131; BP diastolic 39–48; PULSE 55–60; RESP 14–19; TEMP 97.2–98.2; O2SAT 96–100
[2023-01-30] MEDS: CARBIDOPA W LEVODOPA CR 25/100mg TABLET PO SCH ×4 (00:04→17:53)
[2023-01-30] MEDS: MORPHINE SULFATE INJ 2 MG/ml SYRG IV PRN ×4 (02:09→17:54)
[2023-01-30] MEDS: DOXYCYCLINE 100MG/250ML 250 ML IV SCH ×2 (05:39→17:53)
[2023-01-30] MEDS: FUROSEMIDE 20 MG/2 ML VIAL IV SCH ×2 (05:52→17:49)
[2023-01-30] MEDS: buPROPion HCL 75 MG TAB PO SCH (07:00)
[2023-01-30] MEDS: PIPERACILLIN-TAZOB 3.375GM 100 ML IV SCH ×3 (08:00→22:40)
[2023-01-30] MEDS: PREGABALIN 25 MG CAP PO SCH ×2 (09:44→22:40)
[2023-01-30] MEDS: ASPirin 81 mg TAB PO SCH (09:44)
[2023-01-30] MEDS: PANTOPRAZOLE 40 MG TAB PO SCH (09:45)
[2023-01-30] MEDS: POTASSIUM CHL 10 Meq TABLET PO SCH ×2 (09:45→22:41)
[2023-01-30] MEDS: levETIRAcetam 500 MG TAB PO SCH ×2 (09:50→22:00)
[2023-01-30] MEDS: SACUBITRIL-VALSARTAN 24mg/26mg TAB PO SCH ×2 (09:50→22:40)
[2023-01-30] MEDS: SENNA 8.6 MG TAB PO SCH (12:07)
[2023-01-30] MEDS: SUCRALFATE 1 GM TAB PO SCH ×4 (12:07→22:41)
[2023-01-30] MEDS: CLOPIDOGREL BISULFATE 75 MG TAB PO SCH (12:07)
[2023-01-30 12:17] LABS: Basophils # (auto) 0 10 ^3/uL (0-0.2); Eosinophils # (auto) 0.1 10 ^3/uL (0-0.8); Hemoglobin 9.3 g/dL (13.5-17.5); Monocytes # (auto) 0.6 10 ^3/uL (0-1.3); White Blood Cell 5.9 10^3/uL (4.4-10.8)
[2023-01-30 12:19] LABS: Basophils % (auto) 0.3 % (0.0-2.0); Eosinophils % (auto) 2.1 % (0.0-7.0); Hematocrit 30.3 % (41.0-53.0); Lymphocytes # (auto) 0.9 10 ^3/uL (0.4-5.4); Lymphocytes % (auto) 15.8 % (10.0-50.0); Mean Corpuscular Hemoglobin 22.2 pg (28.0-32.0); Mean Corpuscular Hgb Conc. 30.8 g/dL (32.0-36.0); Mean Corpuscular Volume 72.2 fL (80.0-100.0); Monocytes % (auto) 9.7 % (0.0-12.0); Neutrophils # (auto) 4.2 10 ^3/uL (1.6-8.6); Neutrophils % (auto) 72.1 % (37.0-80.0)
[2023-01-30 12:30] LABS: Red Cell Distribution Width 20.4 % (11.8-14.3)
[2023-01-30 12:35] LABS: Chloride 107 mmol/L (98-107); Potassium 4.3 mmol/L (3.5-5.1); Sodium 137 mmol/L (136-145)
[2023-01-30 12:36] LABS: Anion Gap 1 (5-15); Carbon Dioxide 29 mmol/L (20-30)
[2023-01-30 12:37] LABS: Calcium 8.6 mg/dL (8.7-10.4)
[2023-01-30 12:41] LABS: BUN/Creatinine Ratio 12.7 (10.0-20.0); Blood Urea Nitrogen 14 mg/dL (9-23); Glucose 93 mg/dL (74-106)
[2023-01-30 12:48] LABS: Platelet Estimate Adequate
[2023-01-30 12:49] LABS: Anisocytosis Slight; Hypochromia Moderate
[2023-01-30] MEDS: ATORVASTATIN 20 MG TAB PO SCH (22:41)
[2023-01-31] VITALS (9 sets, daily range): BP systolic 93–117; BP diastolic 43–51; PULSE 54–67; RESP 18–20; TEMP 97–97.9; O2SAT 96–100
[2023-01-31] MEDS: DOXYCYCLINE 100MG/250ML 250 ML IV SCH ×2 (05:25→16:45)
[2023-01-31] MEDS: FUROSEMIDE 20 MG/2 ML VIAL IV SCH ×2 (05:35→16:45)
[2023-01-31] MEDS: buPROPion HCL 75 MG TAB PO SCH (07:00)
[2023-01-31] MEDS: traMADol HCL 50 MG TAB PO PRN (08:25)
[2023-01-31] MEDS: PIPERACILLIN-TAZOB 3.375GM 100 ML IV SCH (08:25)
[2023-01-31] MEDS: SUCRALFATE 1 GM TAB PO SCH ×4 (08:25→20:59)
[2023-01-31] MEDS: CARBIDOPA W LEVODOPA CR 25/100mg TABLET PO SCH ×4 (08:31→16:46)
[2023-01-31] MEDS: levETIRAcetam 500 MG TAB PO SCH ×2 (10:00→20:00)
[2023-01-31] MEDS: ASPirin 81 mg TAB PO SCH (10:00)
[2023-01-31] MEDS: SACUBITRIL-VALSARTAN 24mg/26mg TAB PO SCH ×3 (10:00→21:07)
[2023-01-31] MEDS: CLOPIDOGREL BISULFATE 75 MG TAB PO SCH (10:00)
[2023-01-31] MEDS: SENNA 8.6 MG TAB PO SCH (10:03)
[2023-01-31] MEDS: PREGABALIN 25 MG CAP PO SCH ×2 (10:03→21:02)
[2023-01-31] MEDS: PANTOPRAZOLE 40 MG TAB PO SCH (10:03)
[2023-01-31] MEDS: POTASSIUM CHL 10 Meq TABLET PO SCH ×2 (10:03→20:59)
[2023-01-31] MEDS: MORPHINE SULFATE INJ 2 MG/ml SYRG IV PRN ×2 (10:28→20:05)
[2023-01-31 12:33] LABS: Chloride 108 mmol/L (98-107); Potassium 4.5 mmol/L (3.5-5.1); Sodium 141 mmol/L (136-145)
[2023-01-31 12:34] LABS: Anion Gap 3 (5-15); Carbon Dioxide 30 mmol/L (20-30)
[2023-01-31 12:35] LABS: Calcium 8.7 mg/dL (8.7-10.4)
[2023-01-31 12:39] LABS: Eosinophils # (auto) 0.1 10 ^3/uL (0-0.8); Hemoglobin 9.2 g/dL (13.5-17.5); Lymphocytes # (auto) 0.8 10 ^3/uL (0.4-5.4); Neutrophils # (auto) 4.1 10 ^3/uL (1.6-8.6); White Blood Cell 5.7 10^3/uL (4.4-10.8)
[2023-01-31 12:40] LABS: BUN/Creatinine Ratio 14.7 (10.0-20.0); Blood Urea Nitrogen 14 mg/dL (9-23); Glucose 91 mg/dL (74-106)
[2023-01-31 12:42] LABS: Basophils # (auto) 0 10 ^3/uL (0-0.2); Basophils % (auto) 0.5 % (0.0-2.0); Eosinophils % (auto) 2.1 % (0.0-7.0); Hematocrit 30.7 % (41.0-53.0); Lymphocytes % (auto) 14.4 % (10.0-50.0); Mean Corpuscular Hemoglobin 21.9 pg (28.0-32.0); Mean Corpuscular Hgb Conc. 29.9 g/dL (32.0-36.0); Mean Corpuscular Volume 73.1 fL (80.0-100.0); Monocytes # (auto) 0.5 10 ^3/uL (0-1.3); Monocytes % (auto) 9.7 % (0.0-12.0); Neutrophils % (auto) 73.3 % (37.0-80.0); Nucleated Red Blood Cells % 0.1 %
[2023-01-31 13:02] LABS: Red Cell Distribution Width 20.6 % (11.8-14.3)
[2023-01-31 13:22] LABS: Body Fluid Polymorphonuclear 17 % (0-25); Body Fluid Red Blood Cells 175 CUMM (0-2000); Body Fluid White Blood Cells 425 CUMM (0-200)
[2023-01-31] MEDS: ATORVASTATIN 20 MG TAB PO SCH (21:00)
[2023-02-01] VITALS (9 sets, daily range): BP systolic 108–133; BP diastolic 45–53; PULSE 60–67; RESP 15–19; TEMP 36.7; O2SAT 95–100
[2023-02-01] MEDS: MORPHINE SULFATE INJ 2 MG/ml SYRG IV PRN ×3 (00:25→13:00)
[2023-02-01] MEDS: CARBIDOPA W LEVODOPA CR 25/100mg TABLET PO SCH ×5 (06:00→23:41)
[2023-02-01] MEDS: buPROPion HCL 75 MG TAB PO SCH (06:02)
[2023-02-01] MEDS: DOXYCYCLINE 100MG/250ML 250 ML IV SCH ×2 (06:10→18:21)
[2023-02-01] MEDS: FUROSEMIDE 20 MG/2 ML VIAL IV SCH ×2 (06:17→18:21)
[2023-02-01] MEDS: POTASSIUM CHL 10 Meq TABLET PO SCH ×2 (08:49→22:12)
[2023-02-01] MEDS: SUCRALFATE 1 GM TAB PO SCH ×4 (08:49→22:12)
[2023-02-01] MEDS: SENNA 8.6 MG TAB PO SCH (08:49)
[2023-02-01] MEDS: PANTOPRAZOLE 40 MG TAB PO SCH (08:49)
[2023-02-01] MEDS: PREGABALIN 25 MG CAP PO SCH ×2 (08:49→22:12)
[2023-02-01] MEDS: SACUBITRIL-VALSARTAN 24mg/26mg TAB PO SCH ×2 (10:00→22:00)
[2023-02-01] MEDS: ASPirin 81 mg TAB PO SCH (10:00)
[2023-02-01] MEDS: CLOPIDOGREL BISULFATE 75 MG TAB PO SCH (10:00)
[2023-02-01] MEDS: levETIRAcetam 500 MG TAB PO SCH ×2 (10:00→22:00)
[2023-02-01 14:06] LABS: Albumin, Body Fluid 1.3 g/dL (Not Estab.)
[2023-02-01] MEDS: traMADol HCL 50 MG TAB PO PRN ×2 (18:29→23:41)
[2023-02-01] MEDS: ATORVASTATIN 20 MG TAB PO SCH (22:11)
[2023-02-02 05:00] VITALS: BP 120/43; PULSE 62; RESP 20; TEMP 98.4; O2SAT 96
[2023-02-02] MEDS: FUROSEMIDE 20 MG/2 ML VIAL IV SCH (05:36)
[2023-02-02] MEDS: DOXYCYCLINE 100MG/250ML 250 ML IV SCH (05:37)
[2023-02-02] MEDS: CARBIDOPA W LEVODOPA CR 25/100mg TABLET PO SCH ×2 (05:37→12:00)
[2023-02-02] MEDS: buPROPion HCL 75 MG TAB PO SCH (05:38)
[2023-02-02] MEDS: SUCRALFATE 1 GM TAB PO SCH ×2 (05:38→11:10)
[2023-02-02] MEDS: traMADol HCL 50 MG TAB PO PRN (05:52)
[2023-02-02 09:00] VITALS: BP 133/51; PULSE 65; RESP 17; TEMP 98.1; O2SAT 100
[2023-02-02 10:00] VITALS: O2SAT 100; O2SAT 98
[2023-02-02] MEDS: levETIRAcetam 500 MG TAB PO SCH (10:00)
[2023-02-02] MEDS: SACUBITRIL-VALSARTAN 24mg/26mg TAB PO SCH (10:00)
[2023-02-02] MEDS ORDERED: FUROSEMIDE 20 MG TAB PO SCH (10:00)
[2023-02-02] MEDS: SENNA 8.6 MG TAB PO SCH (11:09)
[2023-02-02] MEDS: POTASSIUM CHL 10 Meq TABLET PO SCH (11:09)
[2023-02-02] MEDS: ASPirin 81 mg TAB PO SCH (11:09)
[2023-02-02] MEDS: PREGABALIN 25 MG CAP PO SCH (11:10)
[2023-02-02] MEDS: PANTOPRAZOLE 40 MG TAB PO SCH (11:10)
[2023-02-02] MEDS: CLOPIDOGREL BISULFATE 75 MG TAB PO SCH (11:10)
[2023-02-02] MEDS ORDERED: DOXYCYCLINE 100 MG TAB/CAP PO SCH (22:00)
== END 2023-02-02 15:01 | DRG 177 ==
LOC: ER 17:19 → EDBD 17:19 → TELE 22:25 → UNDOADMIN 22:25 → TELE-WESTW 01-29 13:07
PROVIDERS: ADMIT Internal Medicine; ATTEND Internal Medicine
PROC: 0W993ZZ Drainage of Right Pleural Cavity, Percutaneous Approach (ICD-10-PCS; principal; 2023-01-31)
DX: J15.6 Pneumonia due to other Gram-negative bacteria (principal); I50.23 Acute on chronic systolic (congestive) heart failure; F11.20 Opioid dependence, uncomplicated; J44.1 Chronic obstructive pulmonary disease with (acute) exacerbation; I11.0 Hypertensive heart disease with heart failure; E86.1 Hypovolemia; F01.50 Vascular dementia, unspecified severity, without behavioral disturbance, psychotic disturbance, mood disturbance, and anxiety; I25.5 Ischemic cardiomyopathy; Z68.20 Body mass index [BMI] 20.0-20.9, adult; G40.909 Epilepsy, unspecified, not intractable, without status epilepticus; R09.02 Hypoxemia; M10.9 Gout, unspecified; S11.90XA Unspecified open wound of unspecified part of neck, initial encounter; X58.XXXA Exposure to other specified factors, initial encounter; J44.9 Chronic obstructive pulmonary disease, unspecified; I25.10 Atherosclerotic heart disease of native coronary artery without angina pectoris; E87.8 Other disorders of electrolyte and fluid balance, not elsewhere classified; K21.9 Gastro-esophageal reflux disease without esophagitis; E78.5 Hyperlipidemia, unspecified; G20 Parkinson's disease; R13.10 Dysphagia, unspecified; Z74.01 Bed confinement status; Z82.49 Family history of ischemic heart disease and other diseases of the circulatory system; Z83.3 Family history of diabetes mellitus; Z91.199 Patient's noncompliance with other medical treatment and regimen due to unspecified reason; Z86.73 Personal history of transient ischemic attack (TIA), and cerebral infarction without residual deficits; Z93.1 Gastrostomy status; Z93.0 Tracheostomy status; Z88.0 Allergy status to penicillin; Z88.1 Allergy status to other antibiotic agents; Z88.5 Allergy status to narcotic agent; Y93.89 Activity, other specified; Y92.89 Other specified places as the place of occurrence of the external cause; Y99.8 Other external cause status; F02.80 Dementia in other diseases classified elsewhere, unspecified severity, without behavioral disturbance, psychotic disturbance, mood disturbance, and anxiety; Z95.2 Presence of prosthetic heart valve
CPT/HCPCS: 36415; 70490; 70491; 71045; 71260; 76604; 76942; 80048; 80053; 81001; 83880; 83986; 84484; 85025; 85610; 85730; 87081; 87205; 89051; C9113; G0378; J2405; J2543; J3490

== ENCOUNTER 2023-03-23 18:19 | Inpatient (IN) | payer MEDICARE, MEDICAID ==
[~2023-03-23] VITALS: Ht 175.3 cm; Wt 88.0 kg
[2023-03-23] MEDS ORDERED: ASPirin 81 mg TAB PO ONE (18:45)
[2023-03-23 19:40] LABS: Basophils # (auto) 0 10 ^3/uL (0-0.2); Basophils % (auto) 0.5 % (0.0-2.0); Eosinophils # (auto) 0.1 10 ^3/uL (0-0.8); Eosinophils % (auto) 1.8 % (0.0-7.0); Hemoglobin 11.7 g/dL (13.5-17.5); Lymphocytes # (auto) 0.8 10 ^3/uL (0.4-5.4); Lymphocytes % (auto) 16.1 % (10.0-50.0); Mean Corpuscular Hemoglobin 21.4 pg (28.0-32.0); Mean Corpuscular Hgb Conc. 29.9 g/dL (32.0-36.0); Mean Corpuscular Volume 71.6 fL (80.0-100.0); Monocytes # (auto) 0.5 10 ^3/uL (0-1.3); Monocytes % (auto) 10.2 % (0.0-12.0); Neutrophils # (auto) 3.7 10 ^3/uL (1.6-8.6); Neutrophils % (auto) 71.4 % (37.0-80.0); Nucleated Red Blood Cells % 0.1 %; Red Blood Cells 5.46 10^6/uL (4.5-5.90); Red Cell Distribution Width 20.5 % (11.8-14.3); White Blood Cell 5.2 10^3/uL (4.4-10.8)
[2023-03-23 20:10] LABS: Albumin 3.7 g/dL (3.2-4.8); Alkaline Phosphatase 90 U/L (46-116); Anion Gap 6 (5-15); Aspartate Aminotransferase 13 U/L (13-40); BUN/Creatinine Ratio 9.5 (10.0-20.0); Blood Urea Nitrogen 8 mg/dL (9-23); Calcium 8.8 mg/dL (8.7-10.4); Carbon Dioxide 28 mmol/L (20-30); Chloride 108 mmol/L (98-107); Glucose 114 mg/dL (74-106); Lipase 32 U/L (12-53); Magnesium 2.1 mg/dL (1.6-2.6); Potassium 4.4 mmol/L (3.5-5.1); Sodium 142 mmol/L (136-145)
[2023-03-23 20:11] LABS: Bilirubin, Total 0.4 mg/dL (0.2-1.0); Total Protein 6.6 g/dL (5.7-8.2)
[2023-03-23 20:28] LABS: INR 1.14 (0.9-1.15); Partial Thromboplastin Time 33.9 SEC (24.5-34.5); Prothrombin Time 11.9 sec (9.3-11.8)
[2023-03-23 20:41] LABS: Alanine Aminotransferase < 9 U/L (7-40)
[2023-03-23] MEDS ORDERED: FUROSEMIDE 40 MG/4 ML VIAL IV ONE (21:00)
[2023-03-23] MEDS ORDERED: ATORVASTATIN 20 MG TAB PO ONE (22:15)
[2023-03-23 23:00] VITALS: O2SAT 95
[2023-03-23 23:10] VITALS: BP 133/59; PULSE 72; RESP 19; O2SAT 98
[2023-03-24] VITALS (13 sets, daily range): BP systolic 106–142; BP diastolic 53–67; PULSE 66–77; RESP 17–22; TEMP 97.8–98.9; O2SAT 92–100
[2023-03-24 01:14] LABS: Urine Bacteria NONE SEEN /hpf (None Seen); Urine Blood 3+ /uL (Negative); Urine Clarity HAZY (Clear); Urine Color Yellow (Yellow); Urine Hyaline Cast FEW /lpf (0 - 2); Urine Protein, UAD TRACE (Negative); Urine Specific Gravity 1.018 (1.001-1.035); Urine WBC 33 /hpf (0 - 3); Urine pH 5.5 (5.0-8.0)
[2023-03-24] MEDS: ATORVASTATIN 20 MG TAB PO SCH ×2 (01:23→22:00)
[2023-03-24] MEDS ORDERED: ALBUTEROL MEDNEB 2.5 mg/3ml NEB ONE (02:21)
[2023-03-24] MEDS: ALBUTEROL SULF 2.5 MG/0.5ML(0.5%) NEB SOLN NEB PRN (02:33)
[2023-03-24] MEDS: SUCRALFATE 1 GM TAB PO SCH ×4 (06:24→22:00)
[2023-03-24] MEDS ORDERED: buPROPion HCL 75 MG TAB PO SCH (07:00)
[2023-03-24] MEDS ORDERED: CLOPIDOGREL BISULFATE 75 MG TAB PO SCH (10:00)
[2023-03-24] MEDS: LISINOPRIL 10 MG TAB PO SCH (10:00)
[2023-03-24] MEDS ORDERED: ASPirin 81 mg TAB PO SCH (10:00)
[2023-03-24] MEDS: SACUBITRIL-VALSARTAN 24mg/26mg TAB PO SCH ×2 (10:00→22:00)
[2023-03-24] MEDS ORDERED: SENNA 8.6 MG TAB PO SCH (10:00)
[2023-03-24] MEDS ORDERED: FUROSEMIDE 20 MG TAB PO SCH (10:00)
[2023-03-24] MEDS ORDERED: METOPROLOL SUCCINATE 12.5 MG PO SCH (10:00)
[2023-03-24] MEDS: POTASSIUM CHLORIDE 8 MEQ TAB PO SCH (10:00)
[2023-03-24] MEDS: levETIRAcetam 500 MG TAB PO SCH ×2 (10:00→22:00)
[2023-03-24] MEDS ORDERED: PATIENTS OWN MEDICATION (Aspirin (Aspirin Low Dose) 1 TAB) PO SCH (10:00)
[2023-03-24] MEDS: APIXABAN 5 MG TAB PO SCH ×2 (10:00→22:00)
[2023-03-24 10:17] LABS: Eosinophils # (auto) 0.1 10 ^3/uL (0-0.8); Lymphocytes # (auto) 0.5 10 ^3/uL (0.4-5.4); Nucleated Red Blood Cells % 0.1 %
[2023-03-24 10:19] LABS: Basophils # (auto) 0 10 ^3/uL (0-0.2); Basophils % (auto) 0.9 % (0.0-2.0); Eosinophils % (auto) 1.2 % (0.0-7.0); Hematocrit 35.5 % (41.0-53.0); Hemoglobin 10.8 g/dL (13.5-17.5); Lymphocytes % (auto) 8.9 % (10.0-50.0); Mean Corpuscular Hemoglobin 21.7 pg (28.0-32.0); Mean Corpuscular Hgb Conc. 30.5 g/dL (32.0-36.0); Monocytes # (auto) 0.5 10 ^3/uL (0-1.3); Monocytes % (auto) 9.3 % (0.0-12.0); Neutrophils % (auto) 79.7 % (37.0-80.0); Red Cell Distribution Width 20.1 % (11.8-14.3)
[2023-03-24] MEDS: D5W/SOD CHL 0.45% 1,000 ML IV SCH (10:54)
[2023-03-24 10:55] LABS: Triglycerides 77 mg/dL (< 150)
[2023-03-24 10:56] LABS: LDL Cholesterol 59 mg/dL (< 100)
[2023-03-24 10:57] LABS: Albumin 3.5 g/dL (3.2-4.8); Alkaline Phosphatase 81 U/L (46-116); Anion Gap 6 (5-15); Aspartate Aminotransferase 13 U/L (13-40); BUN/Creatinine Ratio 12.3 (10.0-20.0); Blood Urea Nitrogen 10 mg/dL (9-23); Calcium 8.6 mg/dL (8.7-10.4); Carbon Dioxide 29 mmol/L (20-30); Chloride 108 mmol/L (98-107); Cholesterol 103 mg/dL (< 200); Glucose 91 mg/dL (74-106); HDL Cholesterol 30 mg/dL (40-59); Sodium 143 mmol/L (136-145)
[2023-03-24 10:59] LABS: Bilirubin, Total 0.4 mg/dL (0.2-1.0)
[2023-03-24 11:06] LABS: Alanine Aminotransferase < 9 U/L (7-40)
[2023-03-24] MEDS: MORPHINE SULFATE INJ 2 MG/ml SYRG IV PRN (21:18)
[2023-03-24] MEDS ORDERED: PATIENTS OWN MEDICATION (Atorvastatin Calcium 1 TAB) PO SCH (22:00)
[2023-03-25] VITALS (11 sets, daily range): BP systolic 110–123; BP diastolic 43–60; PULSE 61–72; RESP 17–22; TEMP 98.1–99.5; O2SAT 92–100
[2023-03-25] MEDS: ENALAPRILAT 1.25 MG/ML-1ML VIAL IV SCH ×4 (00:46→18:35)
[2023-03-25] MEDS: LISINOPRIL 10 MG TAB PO SCH (10:00)
[2023-03-25] MEDS: POTASSIUM CHLORIDE 8 MEQ TAB PO SCH (10:00)
[2023-03-25] MEDS ORDERED: ENOXAPARIN SOD 60 MG/0.6 ML SYRINGE SC SCH (10:00)
[2023-03-25] MEDS: FUROSEMIDE 20 MG/2 ML VIAL IV SCH (10:17)
[2023-03-25] MEDS: ALBUTEROL SULF 2.5 MG/0.5ML(0.5%) NEB SOLN NEB PRN (10:43)
[2023-03-25] MEDS: D5W/SOD CHL 0.45% 1,000 ML IV SCH (12:28)
[2023-03-25] MEDS ORDERED: ENALAPRILAT 1.25 MG/ML-1ML VIAL IV PRN (19:45)
[2023-03-25] MEDS: ATORVASTATIN 20 MG TAB PO SCH (21:42)
[2023-03-25] MEDS: levETIRAcetam 500 MG/5ML ORAL SOLN UD PO SCH (21:55)
[2023-03-25] MEDS: SACUBITRIL-VALSARTAN 24mg/26mg TAB PO SCH (22:00)
[2023-03-25] MEDS: MORPHINE SULFATE INJ 2 MG/ml SYRG IV PRN (22:38)
[2023-03-26] VITALS (10 sets, daily range): BP systolic 108–150; BP diastolic 42–66; PULSE 54–76; RESP 18–24; TEMP 98–98.3; O2SAT 95–100
[2023-03-26] MEDS ORDERED: CARBIDOPA W LEVODOPA CR 25/100mg TABLET PO SCH
[2023-03-26] MEDS: CARBIDOPA W LEVODOPA 25/100mg TABLET PO SCH ×5 (01:24→20:53)
[2023-03-26] MEDS: LISINOPRIL 10 MG TAB PO SCH (10:00)
[2023-03-26] MEDS: SACUBITRIL-VALSARTAN 24mg/26mg TAB PO SCH (10:00)
[2023-03-26] MEDS: levETIRAcetam 500 MG/5ML ORAL SOLN UD PO SCH (10:35)
[2023-03-26] MEDS: PANTOPRAZOLE 40 MG TAB PO SCH (10:35)
[2023-03-26] MEDS: APIXABAN 2.5 MG TAB PO SCH (10:36)
[2023-03-26] MEDS: POTASSIUM CHLORIDE 8 MEQ TAB PO SCH (10:36)
[2023-03-26] MEDS: D5W/SOD CHL 0.45% 1,000 ML IV SCH (10:37)
[2023-03-26] MEDS: FUROSEMIDE 20 MG/2 ML VIAL IV SCH (10:51)
[2023-03-26] MEDS: MORPHINE SULFATE INJ 2 MG/ml SYRG IV PRN (16:54)
[2023-03-26] MEDS: ALBUTEROL SULF 2.5 MG/0.5ML(0.5%) NEB SOLN NEB PRN (18:37)
[2023-03-26] MEDS ORDERED: LORazepam 2MG/ML-1ML VIAL IV PRN (20:15)
[2023-03-26 21:46] LABS: Basophils # (auto) 0.1 10 ^3/uL (0-0.2); Basophils % (auto) 0.9 % (0.0-2.0); Eosinophils # (auto) 0.1 10 ^3/uL (0-0.8); Eosinophils % (auto) 1.1 % (0.0-7.0); Hematocrit 36.8 % (41.0-53.0); Hemoglobin 10.7 g/dL (13.5-17.5); Lymphocytes # (auto) 0.8 10 ^3/uL (0.4-5.4); Mean Corpuscular Hemoglobin 21.4 pg (28.0-32.0); Mean Corpuscular Volume 73.7 fL (80.0-100.0); Monocytes # (auto) 0.8 10 ^3/uL (0-1.3); Monocytes % (auto) 12.5 % (0.0-12.0); Neutrophils # (auto) 4.4 10 ^3/uL (1.6-8.6); Neutrophils % (auto) 72.5 % (37.0-80.0); Nucleated Red Blood Cells % 0.2 %; White Blood Cell 6.1 10^3/uL (4.4-10.8)
[2023-03-26 21:48] LABS: Red Cell Distribution Width 20.8 % (11.8-14.3)
[2023-03-26 21:53] LABS: Albumin 3.4 g/dL (3.2-4.8); Alkaline Phosphatase 111 U/L (46-116); Amylase 71 U/L (30-118); Anion Gap 6 (5-15); Aspartate Aminotransferase 12 U/L (13-40); BUN/Creatinine Ratio 10.1 (10.0-20.0); Blood Urea Nitrogen 9 mg/dL (9-23); Calcium 8.6 mg/dL (8.5-10.1); Carbon Dioxide 27 mmol/L (20-30); Chloride 108 mmol/L (98-107); Glucose 134 mg/dL (74-106); Potassium 3.9 mmol/L (3.5-5.1); Sodium 141 mmol/L (136-145)
[2023-03-26 21:54] LABS: Bilirubin, Total 0.3 mg/dL (0.2-1.0); Total Protein 6.1 g/dL (5.7-8.2)
[2023-03-26 21:55] LABS: Alanine Aminotransferase < 9 U/L (7-40)
[2023-03-26 22:08] LABS: Lipase 35 U/L (12-53)
[2023-03-27] VITALS (11 sets, daily range): BP systolic 103–138; BP diastolic 43–54; PULSE 60–78; RESP 17–18; TEMP 98–98.7; O2SAT 92–100
[2023-03-27] MEDS: ATORVASTATIN 20 MG TAB PO SCH (00:11)
[2023-03-27] MEDS: APIXABAN 2.5 MG TAB PO SCH ×2 (00:11→12:05)
[2023-03-27] MEDS: SACUBITRIL-VALSARTAN 24mg/26mg TAB PO SCH ×2 (00:11→12:05)
[2023-03-27] MEDS: levETIRAcetam 500 MG/5ML ORAL SOLN UD PO SCH ×2 (00:58→12:09)
[2023-03-27] MEDS: CARBIDOPA W LEVODOPA 25/100mg TABLET PO SCH ×3 (06:35→20:36)
[2023-03-27] MEDS: MORPHINE SULFATE INJ 2 MG/ml SYRG IV PRN ×2 (09:01→18:53)
[2023-03-27] MEDS: FUROSEMIDE 20 MG/2 ML VIAL IV SCH (10:00)
[2023-03-27] MEDS: POTASSIUM CHLORIDE 8 MEQ TAB PO SCH (12:05)
[2023-03-27] MEDS: PANTOPRAZOLE 40 MG TAB PO SCH (12:05)
[2023-03-27] MEDS: D5W/SOD CHL 0.45% 1,000 ML IV SCH (12:20)
[2023-03-27] MEDS: ALBUTEROL SULF 2.5 MG/0.5ML(0.5%) NEB SOLN NEB PRN ×2 (19:28→23:12)
[2023-03-27] MEDS ORDERED: cefTRIAXone 1GM/50ML D5W 50 ML IV ONE (22:45)
[2023-03-27] MEDS ORDERED: ALBUTEROL MEDNEB 2.5 mg/3ml NEB NEB ONE (22:45)
[2023-03-27] MEDS ORDERED: FUROSEMIDE 20 MG/2 ML VIAL IV ONE (22:45)
[2023-03-27] MEDS ORDERED: ALBUTEROL MEDNEB 2.5 mg/3ml NEB ONE (23:01)
[2023-03-28] VITALS (11 sets, daily range): BP systolic 105–143; BP diastolic 45–61; PULSE 58–66; RESP 16–22; TEMP 97–98.7; O2SAT 95–100
[2023-03-28] MEDS: levETIRAcetam 500 MG/5ML ORAL SOLN UD PO SCH ×3 (00:44→21:28)
[2023-03-28] MEDS: APIXABAN 2.5 MG TAB PO SCH ×3 (00:44→21:14)
[2023-03-28] MEDS: ATORVASTATIN 20 MG TAB PO SCH ×2 (00:44→21:14)
[2023-03-28] MEDS: SACUBITRIL-VALSARTAN 24mg/26mg TAB PO SCH ×3 (01:09→21:13)
[2023-03-28] MEDS: MORPHINE SULFATE INJ 2 MG/ml SYRG IV PRN ×3 (02:33→21:16)
[2023-03-28] MEDS: CARBIDOPA W LEVODOPA 25/100mg TABLET PO SCH ×3 (06:32→21:14)
[2023-03-28 07:22] LABS: Basophils # (auto) 0 10 ^3/uL (0-0.2); Eosinophils # (auto) 0.1 10 ^3/uL (0-0.8); Neutrophils # (auto) 3.8 10 ^3/uL (1.6-8.6); White Blood Cell 5.1 10^3/uL (4.4-10.8)
[2023-03-28 07:24] LABS: Basophils % (auto) 0.6 % (0.0-2.0); Eosinophils % (auto) 2.1 % (0.0-7.0); Hematocrit 34.1 % (41.0-53.0); Hemoglobin 10.2 g/dL (13.5-17.5); Lymphocytes # (auto) 0.6 10 ^3/uL (0.4-5.4); Lymphocytes % (auto) 12.3 % (10.0-50.0); Mean Corpuscular Hemoglobin 21.2 pg (28.0-32.0); Mean Corpuscular Hgb Conc. 29.9 g/dL (32.0-36.0); Mean Corpuscular Volume 70.9 fL (80.0-100.0); Monocytes # (auto) 0.5 10 ^3/uL (0-1.3); Nucleated Red Blood Cells % 0.2 %; Red Blood Cells 4.82 10^6/uL (4.5-5.90)
[2023-03-28 07:30] LABS: Red Cell Distribution Width 20.4 % (11.8-14.3)
[2023-03-28 07:35] LABS: Albumin 3.4 g/dL (3.2-4.8); Alkaline Phosphatase 69 U/L (46-116); Anion Gap 6 (5-15); Aspartate Aminotransferase 9 U/L (13-40); BUN/Creatinine Ratio 18.6 (10.0-20.0); Bilirubin, Total 0.3 mg/dL (0.2-1.0); Blood Urea Nitrogen 13 mg/dL (9-23); Calcium 8.4 mg/dL (8.7-10.4); Carbon Dioxide 30 mmol/L (20-30); Chloride 106 mmol/L (98-107); Glucose 86 mg/dL (74-106); Potassium 4.3 mmol/L (3.5-5.1); Sodium 142 mmol/L (136-145)
[2023-03-28 07:36] LABS: Alanine Aminotransferase < 9 U/L (7-40)
[2023-03-28] MEDS: PANTOPRAZOLE 40 MG TAB PO SCH (10:38)
[2023-03-28] MEDS: FUROSEMIDE 20 MG/2 ML VIAL IV SCH (10:39)
[2023-03-28] MEDS: POTASSIUM CHLORIDE 8 MEQ TAB PO SCH (10:39)
[2023-03-28] MEDS ORDERED: ALBUTEROL MEDNEB 2.5 mg/3ml NEB ONE (16:41)
[2023-03-28] MEDS: cefTRIAXone 1GM/50ML D5W 50 ML IV SCH (21:14)
[2023-03-29] VITALS (11 sets, daily range): BP systolic 110–131; BP diastolic 52–58; PULSE 56–67; RESP 18–22; TEMP 97.9–98.6; O2SAT 96–100
[2023-03-29] MEDS: CARBIDOPA W LEVODOPA 25/100mg TABLET PO SCH ×3 (04:21→21:32)
[2023-03-29] MEDS: levETIRAcetam 500 MG/5ML ORAL SOLN UD PO SCH ×2 (10:19→21:27)
[2023-03-29] MEDS: FUROSEMIDE 20 MG/2 ML VIAL IV SCH (10:21)
[2023-03-29] MEDS: PANTOPRAZOLE 40 MG TAB PO SCH (10:22)
[2023-03-29] MEDS: APIXABAN 2.5 MG TAB PO SCH ×2 (10:22→21:25)
[2023-03-29] MEDS: POTASSIUM CHLORIDE 8 MEQ TAB PO SCH (10:22)
[2023-03-29] MEDS: SACUBITRIL-VALSARTAN 24mg/26mg TAB PO SCH ×2 (10:22→21:25)
[2023-03-29] MEDS: MORPHINE SULFATE INJ 2 MG/ml SYRG IV PRN (18:08)
[2023-03-29] MEDS ORDERED: ALBUTEROL MEDNEB 2.5 mg/3ml NEB ONE (18:28)
[2023-03-29] MEDS: ALBUTEROL SULF 2.5 MG/0.5ML(0.5%) NEB SOLN NEB PRN (19:46)
[2023-03-29] MEDS: ATORVASTATIN 20 MG TAB PO SCH (21:25)
[2023-03-29] MEDS: cefTRIAXone 1GM/50ML D5W 50 ML IV SCH (21:26)
[2023-03-30] VITALS (12 sets, daily range): BP systolic 112–120; BP diastolic 50–62; PULSE 59–68; RESP 16–20; TEMP 97.7–98; O2SAT 96–100
[2023-03-30] MEDS: MORPHINE SULFATE INJ 2 MG/ml SYRG IV PRN ×3 (00:01→19:42)
[2023-03-30] MEDS: CARBIDOPA W LEVODOPA 25/100mg TABLET PO SCH ×2 (04:12→12:37)
[2023-03-30 05:34] LABS: Basophils # (auto) 0 10 ^3/uL (0-0.2); Eosinophils # (auto) 0.1 10 ^3/uL (0-0.8); Hemoglobin 10.1 g/dL (13.5-17.5); Monocytes # (auto) 0.3 10 ^3/uL (0-1.3); White Blood Cell 4.8 10^3/uL (4.4-10.8)
[2023-03-30 05:57] LABS: Albumin 3.3 g/dL (3.2-4.8); Alkaline Phosphatase 70 U/L (46-116); Anion Gap 7 (5-15); Aspartate Aminotransferase 9 U/L (13-40); BUN/Creatinine Ratio 16.4 (10.0-20.0); Bilirubin, Total 0.2 mg/dL (0.2-1.0); Blood Urea Nitrogen 11 mg/dL (9-23); Calcium 8.4 mg/dL (8.7-10.4); Carbon Dioxide 28 mmol/L (20-30); Chloride 109 mmol/L (98-107); Glucose 100 mg/dL (74-106); Potassium 3.9 mmol/L (3.5-5.1); Sodium 144 mmol/L (136-145); Total Protein 5.8 g/dL (5.7-8.2)
[2023-03-30 06:12] LABS: Alanine Aminotransferase < 9 U/L (7-40)
[2023-03-30 06:29] LABS: Basophils % (auto) 0.1 % (0.0-2.0); Hematocrit 32.9 % (41.0-53.0); Lymphocytes # (auto) 1.1 10 ^3/uL (0.4-5.4); Lymphocytes % (auto) 23.4 % (10.0-50.0); Mean Corpuscular Hemoglobin 21.5 pg (28.0-32.0); Mean Corpuscular Hgb Conc. 30.7 g/dL (32.0-36.0); Mean Corpuscular Volume 70.2 fL (80.0-100.0); Monocytes % (auto) 6.8 % (0.0-12.0); Neutrophils # (auto) 3.2 10 ^3/uL (1.6-8.6); Neutrophils % (auto) 66.7 % (37.0-80.0); Red Blood Cells 4.68 10^6/uL (4.5-5.90); Red Cell Distribution Width 20.1 % (11.8-14.3)
[2023-03-30] MEDS: FUROSEMIDE 20 MG/2 ML VIAL IV SCH (09:45)
[2023-03-30] MEDS: PANTOPRAZOLE 40 MG TAB PO SCH (09:45)
[2023-03-30] MEDS: SACUBITRIL-VALSARTAN 24mg/26mg TAB PO SCH (09:45)
[2023-03-30] MEDS: levETIRAcetam 500 MG/5ML ORAL SOLN UD PO SCH ×2 (09:46→21:29)
[2023-03-30] MEDS: APIXABAN 2.5 MG TAB PO SCH (09:46)
[2023-03-30] MEDS: POTASSIUM CHLORIDE 8 MEQ TAB PO SCH (09:46)
[2023-03-30] MEDS ORDERED: methylPREDNISolone SOD SUCC 125 MG/2 ML VL IV ONE (13:45)
[2023-03-30] MEDS: ALBUTEROL SULF 2.5 MG/0.5ML(0.5%) NEB SOLN NEB SCH ×3 (14:03→21:56)
[2023-03-30] MEDS: FUROSEMIDE INJECTION 100 MG in D5W 5% 100 ML IV SCH ×2 (16:07→23:28)
[2023-03-30] MEDS ORDERED: ALBUTEROL MEDNEB 2.5 mg/3ml NEB ONE ×2 (17:53→21:54)
[2023-03-30] MEDS: methylPREDNISolone SOD SUCC 40 MG/ML VL IV SCH ×2 (19:41→22:00)
[2023-03-30] MEDS: ENOXAPARIN SOD 60 MG/0.6 ML SYRINGE SC SCH (21:28)
[2023-03-30] MEDS: ATORVASTATIN 20 MG TAB PO SCH (21:28)
[2023-03-30] MEDS: cefTRIAXone 1GM/50ML D5W 50 ML IV SCH (21:29)
[2023-03-31] VITALS (19 sets, daily range): BP systolic 103–118; BP diastolic 41–65; PULSE 56–109; RESP 16–20; TEMP 97.5–98.2; O2SAT 94–100
[2023-03-31] MEDS ORDERED: ALBUTEROL MEDNEB 2.5 mg/3ml NEB ONE ×6 (01:33→22:13)
[2023-03-31] MEDS: ALBUTEROL SULF 2.5 MG/0.5ML(0.5%) NEB SOLN NEB SCH ×6 (01:51→22:40)
[2023-03-31] MEDS: methylPREDNISolone SOD SUCC 40 MG/ML VL IV SCH ×3 (05:02→21:52)
[2023-03-31] MEDS: MORPHINE SULFATE INJ 2 MG/ml SYRG IV PRN ×2 (08:24→17:55)
[2023-03-31] MEDS: levETIRAcetam 500 MG/5ML ORAL SOLN UD PO SCH ×2 (10:00→21:52)
[2023-03-31] MEDS: FUROSEMIDE 20 MG/2 ML VIAL IV SCH (10:16)
[2023-03-31] MEDS: ENOXAPARIN SOD 60 MG/0.6 ML SYRINGE SC SCH ×3 (10:16→22:03)
[2023-03-31] MEDS: FUROSEMIDE INJECTION 100 MG in D5W 5% 100 ML IV SCH ×2 (10:17→14:15)
[2023-03-31 11:22] LABS: Albumin 3.6 g/dL (3.2-4.8); Alkaline Phosphatase 73 U/L (46-116); Anion Gap 6 (5-15); Aspartate Aminotransferase < 8 U/L (13-40); BUN/Creatinine Ratio 17.9 (10.0-20.0); Bilirubin, Total 0.2 mg/dL (0.2-1.0); Blood Urea Nitrogen 14 mg/dL (9-23); Calcium 8.5 mg/dL (8.7-10.4); Carbon Dioxide 29 mmol/L (20-30); Chloride 106 mmol/L (98-107); Glucose 181 mg/dL (74-106); Potassium 3.6 mmol/L (3.5-5.1); Sodium 141 mmol/L (136-145)
[2023-03-31 11:23] LABS: Alanine Aminotransferase < 9 U/L (7-40); Total Protein 6.3 g/dL (5.7-8.2)
[2023-03-31 11:31] LABS: INR 1.21 (0.9-1.15); Prothrombin Time 12.5 sec (9.3-11.8)
[2023-03-31] MEDS: ATORVASTATIN 20 MG TAB PO SCH (21:56)
[2023-03-31] MEDS: cefTRIAXone 1GM/50ML D5W 50 ML IV SCH (22:06)
[2023-04-01] VITALS (14 sets, daily range): BP systolic 108–129; BP diastolic 47–60; PULSE 59–70; RESP 16–20; TEMP 97.2–98.2; O2SAT 96–100
[2023-04-01] MEDS: FUROSEMIDE INJECTION 100 MG in D5W 5% 100 ML IV SCH ×2 (00:14→14:11)
[2023-04-01] MEDS: MORPHINE SULFATE INJ 2 MG/ml SYRG IV PRN ×2 (01:20→17:08)
[2023-04-01] MEDS ORDERED: ALBUTEROL MEDNEB 2.5 mg/3ml NEB ONE ×4 (01:41→17:57)
[2023-04-01] MEDS: ALBUTEROL SULF 2.5 MG/0.5ML(0.5%) NEB SOLN NEB SCH ×5 (02:06→18:01)
[2023-04-01] MEDS: methylPREDNISolone SOD SUCC 40 MG/ML VL IV SCH ×4 (05:35→21:49)
[2023-04-01] MEDS: levETIRAcetam 500 MG/5ML ORAL SOLN UD PO SCH ×2 (09:41→21:49)
[2023-04-01] MEDS: NITROGLYCERIN 0.4 MG SL TAB SL PRN ×2 (12:50→13:46)
[2023-04-01 13:40] LABS: Albumin 3.6 g/dL (3.2-4.8); Alkaline Phosphatase 69 U/L (46-116); Anion Gap 7 (5-15); Aspartate Aminotransferase 9 U/L (13-40); BUN/Creatinine Ratio 16.5 (10.0-20.0); Bilirubin, Total 0.2 mg/dL (0.2-1.0); Blood Urea Nitrogen 13 mg/dL (9-23); Calcium 8.6 mg/dL (8.7-10.4); Carbon Dioxide 28 mmol/L (20-30); Chloride 103 mmol/L (98-107); Glucose 188 mg/dL (74-106); Potassium 3.7 mmol/L (3.5-5.1); Sodium 138 mmol/L (136-145); Total Protein 6.3 g/dL (5.7-8.2)
[2023-04-01 13:43] LABS: Alanine Aminotransferase < 9 U/L (7-40)
[2023-04-01] MEDS: ENOXAPARIN SOD 60 MG/0.6 ML SYRINGE SC SCH (21:49)
[2023-04-01] MEDS: cefTRIAXone 1GM/50ML D5W 50 ML IV SCH (21:49)
[2023-04-01] MEDS: ATORVASTATIN 20 MG TAB PO SCH (21:49)
[2023-04-02] VITALS (12 sets, daily range): BP systolic 108–115; BP diastolic 35–46; PULSE 20–70; RESP 16–20; TEMP 97.4–98.4; O2SAT 90–100
[2023-04-02] MEDS: ALBUTEROL SULF 2.5 MG/0.5ML(0.5%) NEB SOLN NEB SCH ×4 (00:47→19:24)
[2023-04-02] MEDS ORDERED: ALBUTEROL MEDNEB 2.5 mg/3ml NEB ONE ×2 (06:12→18:04)
[2023-04-02] MEDS: FUROSEMIDE INJECTION 100 MG in D5W 5% 100 ML IV SCH (07:38)
[2023-04-02] MEDS: MORPHINE SULFATE INJ 2 MG/ml SYRG IV PRN ×2 (07:39→13:46)
[2023-04-02] MEDS: levETIRAcetam 500 MG/5ML ORAL SOLN UD PO SCH ×2 (09:36→22:00)
[2023-04-02] MEDS: ENOXAPARIN SOD 60 MG/0.6 ML SYRINGE SC SCH ×2 (09:36→22:50)
[2023-04-02] MEDS: methylPREDNISolone SOD SUCC 40 MG/ML VL IV SCH ×2 (09:36→22:49)
[2023-04-02 13:13] LABS: Body Fluid Polymorphonuclear 28 % (0-25); Body Fluid Red Blood Cells 38 CUMM (0-2000); Body Fluid White Blood Cells 55 CUMM (0-200)
[2023-04-02 14:55] LABS: Basophils # (auto) 0 10 ^3/uL (0-0.2); Basophils % (auto) 0.2 % (0.0-2.0); Eosinophils # (auto) 0 10 ^3/uL (0-0.8); Eosinophils % (auto) 0.1 % (0.0-7.0); Hematocrit 37.7 % (41.0-53.0); Hemoglobin 11.4 g/dL (13.5-17.5); Lymphocytes # (auto) 0.2 10 ^3/uL (0.4-5.4); Lymphocytes % (auto) 4.4 % (10.0-50.0); Mean Corpuscular Hemoglobin 21.7 pg (28.0-32.0); Mean Corpuscular Hgb Conc. 30.2 g/dL (32.0-36.0); Monocytes # (auto) 0.1 10 ^3/uL (0-1.3); Monocytes % (auto) 2.4 % (0.0-12.0); Neutrophils # (auto) 5.2 10 ^3/uL (1.6-8.6); Neutrophils % (auto) 92.9 % (37.0-80.0); Red Blood Cells 5.23 10^6/uL (4.5-5.90); Red Cell Distribution Width 19.9 % (11.8-14.3); White Blood Cell 5.6 10^3/uL (4.4-10.8)
[2023-04-02 15:02] LABS: Alanine Aminotransferase 16 U/L (7-40); Albumin 3.5 g/dL (3.2-4.8); Alkaline Phosphatase 71 U/L (46-116); Anion Gap 6 (5-15); Aspartate Aminotransferase 19 U/L (13-40); BUN/Creatinine Ratio 17.4 (10.0-20.0); Bilirubin, Total 0.2 mg/dL (0.2-1.0); Blood Urea Nitrogen 16 mg/dL (9-23); Calcium 8.5 mg/dL (8.7-10.4); Carbon Dioxide 28 mmol/L (20-30); Chloride 102 mmol/L (98-107); Glucose 212 mg/dL (74-106); Potassium 3.8 mmol/L (3.5-5.1); Sodium 136 mmol/L (136-145); Total Protein 6.2 g/dL (5.7-8.2)
[2023-04-02 15:06] LABS: Body Fluid pH 7
[2023-04-02] MEDS: cefTRIAXone 1GM/50ML D5W 50 ML IV SCH (21:00)
[2023-04-02] MEDS: ATORVASTATIN 20 MG TAB PO SCH (22:51)
[2023-04-02] MEDS ORDERED: MORPHINE SULFATE INJ 2 MG/ml SYRG IV PRN (23:30)
[2023-04-03] VITALS (14 sets, daily range): BP systolic 107–131; BP diastolic 43–60; PULSE 52–81; RESP 14–18; TEMP 97.4–98.3; O2SAT 93–100
[2023-04-03] MEDS ORDERED: ALBUTEROL MEDNEB 2.5 mg/3ml NEB ONE ×3 (00:17→23:46)
[2023-04-03] MEDS: ALBUTEROL SULF 2.5 MG/0.5ML(0.5%) NEB SOLN NEB SCH ×4 (00:45→20:18)
[2023-04-03] MEDS: MORPHINE SULFATE INJ 2 MG/ml SYRG IV PRN ×3 (06:30→21:03)
[2023-04-03] MEDS: levETIRAcetam 500 MG/5ML ORAL SOLN UD PO SCH ×3 (09:27→23:07)
[2023-04-03] MEDS: ENOXAPARIN SOD 60 MG/0.6 ML SYRINGE SC SCH ×2 (09:27→22:00)
[2023-04-03] MEDS: methylPREDNISolone SOD SUCC 40 MG/ML VL IV SCH ×2 (09:27→22:49)
[2023-04-03] MEDS ORDERED: FUROSEMIDE 20 MG/2 ML VIAL IV ONE (10:00)
[2023-04-03 12:07] LABS: Protein, Body Fluid 1.7 g/dL (.)
[2023-04-03] MEDS: FUROSEMIDE 20 MG/2 ML VIAL IV SCH (17:45)
[2023-04-03] MEDS: cefTRIAXone 1GM/50ML D5W 50 ML IV SCH (21:02)
[2023-04-03] MEDS: ATORVASTATIN 20 MG TAB PO SCH (22:49)
[2023-04-03] MEDS ORDERED: MORPHINE SULFATE INJ 2 MG/ml SYRG IV ONE (23:15)
[2023-04-04] VITALS (17 sets, daily range): BP systolic 112–126; BP diastolic 52–70; PULSE 55–98; RESP 15–20; TEMP 97.6–97.9; O2SAT 96–100
[2023-04-04] MEDS: ALBUTEROL SULF 2.5 MG/0.5ML(0.5%) NEB SOLN NEB SCH ×2 (00:08→07:15)
[2023-04-04] MEDS: FUROSEMIDE 20 MG/2 ML VIAL IV SCH ×2 (06:00→18:22)
[2023-04-04] MEDS: methylPREDNISolone SOD SUCC 40 MG/ML VL IV SCH ×2 (09:19→22:28)
[2023-04-04] MEDS: MORPHINE SULFATE INJ 2 MG/ml SYRG IV PRN ×3 (09:19→19:46)
[2023-04-04] MEDS: ENOXAPARIN SOD 60 MG/0.6 ML SYRINGE SC SCH ×2 (10:00→22:00)
[2023-04-04] MEDS: ALBUTEROL MEDNEB 2.5 mg/3ml NEB NEB SCH ×2 (11:56→18:04)
[2023-04-04] MEDS: cefTRIAXone 1GM/50ML D5W 50 ML IV SCH (20:57)
[2023-04-04] MEDS: ATORVASTATIN 20 MG TAB PO SCH (22:29)
[2023-04-04] MEDS: levETIRAcetam 500 MG/5ML ORAL SOLN UD PO SCH (22:29)
[2023-04-04] MEDS ORDERED: methylPREDNISolone SOD SUCC 40 MG/ML VL IV SCH (23:30)
[2023-04-05] VITALS (12 sets, daily range): BP systolic 114–123; BP diastolic 53–63; PULSE 54–74; RESP 16–20; TEMP 36.6; O2SAT 94–100
[2023-04-05] MEDS: ALBUTEROL MEDNEB 2.5 mg/3ml NEB NEB SCH ×3 (00:13→19:31)
[2023-04-05] MEDS: MORPHINE SULFATE INJ 2 MG/ml SYRG IV PRN ×2 (00:25→06:11)
[2023-04-05] MEDS: FUROSEMIDE 20 MG/2 ML VIAL IV SCH ×2 (06:00→18:00)
[2023-04-05] MEDS: APIXABAN 5 MG TAB PO SCH ×2 (09:31→10:00)
[2023-04-05] MEDS: levETIRAcetam 500 MG/5ML ORAL SOLN UD PO SCH (09:32)
== END 2023-04-05 20:04 | DRG 291 ==
LOC: ER 18:19 → EDBD 18:19 → TELE 22:12 → TELE-EAST 03-24 02:39
PROVIDERS: ADMIT Specialist; ATTEND Specialist
PROC: 0W993ZZ Drainage of Right Pleural Cavity, Percutaneous Approach (ICD-10-PCS; principal; 2023-04-02)
DX: I13.0 Hypertensive heart and chronic kidney disease with heart failure and stage 1 through stage 4 chronic kidney disease, or unspecified chronic kidney disease (principal); E43 Unspecified severe protein-calorie malnutrition; G93.41 Metabolic encephalopathy; R53.2 Functional quadriplegia; J96.01 Acute respiratory failure with hypoxia; I50.43 Acute on chronic combined systolic (congestive) and diastolic (congestive) heart failure; J18.9 Pneumonia, unspecified organism; F11.20 Opioid dependence, uncomplicated; I24.9 Acute ischemic heart disease, unspecified; N39.0 Urinary tract infection, site not specified; I69.354 Hemiplegia and hemiparesis following cerebral infarction affecting left non-dominant side; J44.1 Chronic obstructive pulmonary disease with (acute) exacerbation; J98.11 Atelectasis; J44.0 Chronic obstructive pulmonary disease with (acute) lower respiratory infection; E78.00 Pure hypercholesterolemia, unspecified; I35.0 Nonrheumatic aortic (valve) stenosis; I25.5 Ischemic cardiomyopathy; D50.9 Iron deficiency anemia, unspecified; I25.10 Atherosclerotic heart disease of native coronary artery without angina pectoris; E11.22 Type 2 diabetes mellitus with diabetic chronic kidney disease; G40.909 Epilepsy, unspecified, not intractable, without status epilepticus; F32.A Depression, unspecified; G89.29 Other chronic pain; K21.9 Gastro-esophageal reflux disease without esophagitis; I25.2 Old myocardial infarction; N18.9 Chronic kidney disease, unspecified; Z79.899 Other long term (current) drug therapy; Z68.27 Body mass index [BMI] 27.0-27.9, adult; Z88.1 Allergy status to other antibiotic agents; Z88.5 Allergy status to narcotic agent; Z88.0 Allergy status to penicillin; Z82.49 Family history of ischemic heart disease and other diseases of the circulatory system; Z83.3 Family history of diabetes mellitus; Z87.01 Personal history of pneumonia (recurrent); Z88.6 Allergy status to analgesic agent; Z91.199 Patient's noncompliance with other medical treatment and regimen due to unspecified reason; Z95.2 Presence of prosthetic heart valve; Z98.61 Coronary angioplasty status; Z99.3 Dependence on wheelchair; Z68.37 Body mass index [BMI] 37.0-37.9, adult; I69.320 Aphasia following cerebral infarction
CPT/HCPCS: 36415; 70551; 71045; 74018; 76604; 76942; 80053; 80061; 81001; 82150; 82962; 83605; 83690; 83735; 83880; 83986; 84100; 84484; 84520; 85025; 85379; 85610; 85730; 87040; 87070; 87081; 87205; 89051; 92610; 93005; 94640; 95819; G0378; J0696; J7060

== ENCOUNTER 2023-06-14 19:16 | Inpatient (IN) | payer MEDICARE, MEDICAID ==
[~2023-06-14] VITALS: Ht 165.1 cm; Wt 94.0 kg
[~2023-06-14 19:16] MED LIST changes: -LISI10TA34 PO
[2023-06-14 21:32] VITALS: BP 143/67; PULSE 70; PULSE 87; RESP 20; TEMP 97.6; O2SAT 93; O2SAT 98
[2023-06-14 22:00] VITALS: BP 143/67; PULSE 69; RESP 20; TEMP 97.6; O2SAT 99
[2023-06-14 22:29] LABS: Basophils # (auto) 0 10 ^3/uL (0-0.2); Basophils % (auto) 0.2 % (0.0-2.0); Eosinophils # (auto) 0 10 ^3/uL (0-0.8); Eosinophils % (auto) 0.8 % (0.0-7.0); Hematocrit 35.4 % (41.0-53.0); Hemoglobin 10.7 g/dL (13.5-17.5); Lymphocytes # (auto) 0.7 10 ^3/uL (0.4-5.4); Lymphocytes % (auto) 13.3 % (10.0-50.0); Mean Corpuscular Hemoglobin 23.2 pg (28.0-32.0); Mean Corpuscular Hgb Conc. 30.2 g/dL (32.0-36.0); Mean Corpuscular Volume 76.7 fL (80.0-100.0); Monocytes # (auto) 0.4 10 ^3/uL (0-1.3); Neutrophils # (auto) 4.3 10 ^3/uL (1.6-8.6); Neutrophils % (auto) 78.7 % (37.0-80.0); Nucleated Red Blood Cells % 0.1 %; Red Blood Cells 4.62 10^6/uL (4.5-5.90); White Blood Cell 5.4 10^3/uL (4.4-10.8)
[2023-06-14 22:30] LABS: Red Cell Distribution Width 23.5 % (11.8-14.3)
[2023-06-14 22:46] LABS: Albumin 3.9 g/dL (3.2-4.8); Alkaline Phosphatase 140 U/L (46-116); Anion Gap 3 (5-15); Aspartate Aminotransferase 18 U/L (13-40); BUN/Creatinine Ratio 20.8 (10.0-20.0); Blood Urea Nitrogen 16 mg/dL (9-23); Calcium 9.2 mg/dL (8.5-10.1); Carbon Dioxide 31 mmol/L (20-30); Chloride 110 mmol/L (98-107); Glucose 119 mg/dL (74-106); Sodium 144 mmol/L (136-145)
[2023-06-14 22:47] LABS: Bilirubin, Total 0.4 mg/dL (0.2-1.0); Total Protein 6.6 g/dL (5.7-8.2)
[2023-06-14 22:55] LABS: CRP High Sensitivity 1.55 mg/dL (<1.0)
[2023-06-14 23:03] LABS: Alanine Aminotransferase < 9 U/L (7-40)
[2023-06-15] VITALS (10 sets, daily range): BP systolic 97–164; BP diastolic 53–70; PULSE 68–85; RESP 16–20; TEMP 97.6–98.1; O2SAT 91–98
[2023-06-15] MEDS ORDERED: ALBUTEROL SULF 2.5 MG/0.5ML(0.5%) NEB SOLN NEB PRN
[2023-06-15] MEDS: PIPERACILLIN-TAZOB 3.375GM 100 ML IV SCH (00:37)
[2023-06-15] MEDS: CARBIDOPA W LEVODOPA CR 25/100mg TABLET PO SCH (00:51)
[2023-06-15] MEDS: HYDROmorphone HCL 2 MG/ML VL/or syr IV PRN ×2 (01:00→13:10)
[2023-06-15] MEDS: buPROPion HCL 75 MG TAB PO SCH (05:22)
[2023-06-15] MEDS: SUCRALFATE 1 GM TAB PO SCH (05:22)
[2023-06-15] MEDS ORDERED: FUROSEMIDE 20 MG/2 ML VIAL IV SCH (06:00)
[2023-06-15] MEDS: CLOPIDOGREL BISULFATE 75 MG TAB PO SCH (10:12)
[2023-06-15] MEDS: FUROSEMIDE 20 MG TAB PO SCH (10:12)
[2023-06-15] MEDS: levETIRAcetam 500 MG TAB PO SCH (10:12)
[2023-06-15] MEDS: SACUBITRIL-VALSARTAN 24mg/26mg TAB PO SCH (10:12)
[2023-06-15] MEDS: POTASSIUM CHLORIDE 8 MEQ TAB PO SCH (10:12)
[2023-06-15] MEDS: SENNA 8.6 MG TAB PO SCH (10:13)
[2023-06-15] MEDS: PANTOPRAZOLE 40 MG TAB PO SCH (10:13)
[2023-06-15] MEDS: APIXABAN 5 MG TAB PO SCH (10:13)
[2023-06-15] MEDS: ATORVASTATIN 20 MG TAB PO SCH (21:57)
[2023-06-16] VITALS (8 sets, daily range): BP systolic 116–150; BP diastolic 37–79; PULSE 58–78; RESP 18; TEMP 97.8–99; O2SAT 90–96
[2023-06-17] VITALS (12 sets, daily range): BP systolic 104–144; BP diastolic 52–68; PULSE 68–81; RESP 12–22; TEMP 97.5–98.2; O2SAT 92–100
[2023-06-17 09:41] LABS: Basophils # (auto) 0 10 ^3/uL (0-0.2); Eosinophils # (auto) 0.1 10 ^3/uL (0-0.8); Lymphocytes # (auto) 0.7 10 ^3/uL (0.4-5.4); Nucleated Red Blood Cells % 0.1 %
[2023-06-17 09:44] LABS: Basophils % (auto) 0.6 % (0.0-2.0); Eosinophils % (auto) 1.2 % (0.0-7.0); Hematocrit 32.5 % (41.0-53.0); Hemoglobin 10.1 g/dL (13.5-17.5); Lymphocytes % (auto) 11.5 % (10.0-50.0); Mean Corpuscular Hemoglobin 23.4 pg (28.0-32.0); Mean Corpuscular Hgb Conc. 31.1 g/dL (32.0-36.0); Mean Corpuscular Volume 75.1 fL (80.0-100.0); Monocytes # (auto) 0.6 10 ^3/uL (0-1.3); Monocytes % (auto) 9.4 % (0.0-12.0); Neutrophils # (auto) 4.8 10 ^3/uL (1.6-8.6); Neutrophils % (auto) 77.3 % (37.0-80.0); Red Blood Cells 4.34 10^6/uL (4.5-5.90); White Blood Cell 6.2 10^3/uL (4.4-10.8)
[2023-06-17 09:56] LABS: Alanine Aminotransferase 31 U/L (7-40); Albumin 3.5 g/dL (3.2-4.8); Alkaline Phosphatase 148 U/L (46-116); Anion Gap 5 (5-15); Aspartate Aminotransferase 27 U/L (13-40); BUN/Creatinine Ratio 22.9 (10.0-20.0); Bilirubin, Total 0.5 mg/dL (0.2-1.0); Blood Urea Nitrogen 19 mg/dL (9-23); Calcium 8.5 mg/dL (8.7-10.4); Carbon Dioxide 29 mmol/L (20-30); Chloride 110 mmol/L (98-107); Glucose 119 mg/dL (74-106); Magnesium 1.9 mg/dL (1.6-2.6); Phosphorus 3.3 mg/dL (2.4-5.1); Potassium 3.7 mmol/L (3.5-5.1); Sodium 144 mmol/L (136-145); Total Protein 6.1 g/dL (5.7-8.2)
[2023-06-17] MEDS: ALBUTEROL SULF 2.5 MG/0.5ML(0.5%) NEB SOLN NEB PRN (10:49)
[2023-06-17] MEDS ORDERED: MORPHINE SULFATE INJ 2 MG/ml SYRG BC PRN (12:15)
[2023-06-17] MEDS: MORPHINE SULFATE INJ 2 MG/ml SYRG ONE (12:54)
[2023-06-17] MEDS: MORPHINE SULFATE INJ 2 MG/ml SYRG IV PRN (15:11)
[2023-06-17] MEDS ORDERED: NITROGLYCERIN 0.4 MG SL TAB SL PRN (19:45)
[2023-06-18] VITALS (9 sets, daily range): BP systolic 108–149; BP diastolic 53–78; PULSE 71–105; RESP 18–21; TEMP 97.8–98.2; O2SAT 92–97
[2023-06-18] MEDS: HYDROmorphone HCL 2 MG/ML VL/or syr IV PRN (06:44)
[2023-06-18 08:37] LABS: INR 1.39 (0.9-1.15); Partial Thromboplastin Time 36.5 SEC (24.5-34.5); Prothrombin Time 14.3 sec (9.3-11.8)
[2023-06-18] MEDS: NITROGLYCERIN 0.2MG/HR TOPICAL PATCH TD SCH (10:09)
[2023-06-18 13:44] LABS: Body Fluid Polymorphonuclear 19 % (0-25); Body Fluid Red Blood Cells 1150 CUMM (0-2000); Body Fluid White Blood Cells 625 CUMM (0-200)
[2023-06-18] MEDS: MUPIROCIN 2% OINT 15gm or 22gm FOR MRSA NARES TOP SCH (22:00)
[2023-06-19] VITALS (8 sets, daily range): BP systolic 96–112; BP diastolic 40–52; PULSE 70–98; RESP 16–21; TEMP 97.3–98.7; O2SAT 96–100
[2023-06-19 11:05] LABS: Basophils # (auto) 0 10 ^3/uL (0-0.2); Basophils % (auto) 0.1 % (0.0-2.0); Eosinophils # (auto) 0 10 ^3/uL (0-0.8); Eosinophils % (auto) 0.2 % (0.0-7.0); Hematocrit 31.4 % (41.0-53.0); Hemoglobin 9.5 g/dL (13.5-17.5); Lymphocytes # (auto) 0.6 10 ^3/uL (0.4-5.4); Lymphocytes % (auto) 6.7 % (10.0-50.0); Mean Corpuscular Hemoglobin 22.7 pg (28.0-32.0); Mean Corpuscular Hgb Conc. 30.3 g/dL (32.0-36.0); Monocytes # (auto) 0.6 10 ^3/uL (0-1.3); Monocytes % (auto) 7.3 % (0.0-12.0); Neutrophils # (auto) 7.3 10 ^3/uL (1.6-8.6); Neutrophils % (auto) 85.7 % (37.0-80.0); Nucleated Red Blood Cells % 0.1 %; Red Blood Cells 4.19 10^6/uL (4.5-5.90); White Blood Cell 8.6 10^3/uL (4.4-10.8)
[2023-06-19 11:07] LABS: Red Cell Distribution Width 22.4 % (11.8-14.3)
[2023-06-19 11:20] LABS: Alanine Aminotransferase 33 U/L (7-40); Albumin 2.9 g/dL (3.2-4.8); Alkaline Phosphatase 113 U/L (46-116); Anion Gap 2 (5-15); Aspartate Aminotransferase 51 U/L (13-40); BUN/Creatinine Ratio 20.3 (10.0-20.0); Bilirubin, Total 0.6 mg/dL (0.2-1.0); Blood Urea Nitrogen 16 mg/dL (9-23); Calcium 8.5 mg/dL (8.5-10.1); Carbon Dioxide 30 mmol/L (20-30); Chloride 112 mmol/L (98-107); Glucose 113 mg/dL (74-106); Potassium 3.5 mmol/L (3.5-5.1); Sodium 144 mmol/L (136-145); Total Protein 4.9 g/dL (5.7-8.2)
[2023-06-19 13:07] LABS: Protein, Body Fluid 1.5 g/dL (.)
[2023-06-20] VITALS (9 sets, daily range): BP systolic 101–116; BP diastolic 46–59; PULSE 63–80; RESP 16–20; TEMP 97.5–98.6; O2SAT 97–100
[2023-06-20 13:47] LABS: Base Excess 1.1 mmol/L (-2.0-2.0)
[2023-06-20] MEDS: ACETYLCYSTEINE 20%(200MG/ML) SOL 4ML NEB SCH (23:14)
[2023-06-20] MEDS: ALBUTEROL SULF 2.5 MG/0.5ML(0.5%) NEB SOLN NEB PRN (23:14)
[2023-06-21] VITALS (14 sets, daily range): BP systolic 98–128; BP diastolic 53–78; PULSE 65–82; RESP 15–21; TEMP 98–98.6; O2SAT 96–100
[2023-06-21 08:42] LABS: Basophils # (auto) 0 10 ^3/uL (0-0.2); Eosinophils # (auto) 0.1 10 ^3/uL (0-0.8); Lymphocytes # (auto) 0.6 10 ^3/uL (0.4-5.4); Monocytes # (auto) 0.5 10 ^3/uL (0-1.3); Neutrophils # (auto) 5.4 10 ^3/uL (1.6-8.6); Red Cell Distribution Width 22.1 % (11.8-14.3); White Blood Cell 6.7 10^3/uL (4.4-10.8)
[2023-06-21 08:44] LABS: Basophils % (auto) 0.5 % (0.0-2.0); Eosinophils % (auto) 1.3 % (0.0-7.0); Hematocrit 32.1 % (41.0-53.0); Hemoglobin 9.8 g/dL (13.5-17.5); Lymphocytes % (auto) 8.5 % (10.0-50.0); Mean Corpuscular Hemoglobin 23.1 pg (28.0-32.0); Mean Corpuscular Hgb Conc. 30.6 g/dL (32.0-36.0); Mean Corpuscular Volume 75.3 fL (80.0-100.0); Monocytes % (auto) 8.1 % (0.0-12.0); Neutrophils % (auto) 81.6 % (37.0-80.0); Red Blood Cells 4.27 10^6/uL (4.5-5.90)
[2023-06-21 08:55] LABS: INR 1.28 (0.9-1.15); Partial Thromboplastin Time 38.4 SEC (24.5-34.5); Prothrombin Time 13.2 sec (9.3-11.8)
[2023-06-21 08:57] LABS: Alanine Aminotransferase 20 U/L (7-40); Albumin 3.1 g/dL (3.2-4.8); Alkaline Phosphatase 90 U/L (46-116); Anion Gap 5 (5-15); Aspartate Aminotransferase 17 U/L (13-40); BUN/Creatinine Ratio 19.8 (10.0-20.0); Bilirubin, Total 0.6 mg/dL (0.2-1.0); Blood Urea Nitrogen 16 mg/dL (9-23); Calcium 8.7 mg/dL (8.5-10.1); Carbon Dioxide 32 mmol/L (20-30); Chloride 106 mmol/L (98-107); Glucose 109 mg/dL (74-106); Potassium 4.1 mmol/L (3.5-5.1); Sodium 143 mmol/L (136-145); Total Protein 5.2 g/dL (5.7-8.2)
[2023-06-21 16:13] LABS: Body Fluid pH 8
[2023-06-21 16:13] LABS: Body Fluid pH 8
[2023-06-21 18:38] LABS: Body Fluid Red Blood Cells 1795 CUMM (0-2000); Body Fluid White Blood Cells 110 CUMM (0-200)
[2023-06-21 18:39] LABS: Body Fluid Polymorphonuclear 40 % (0-25)
[2023-06-21 22:07] LABS: Body Fluid Polymorphonuclear 31 % (0-25); Body Fluid Red Blood Cells 2395 CUMM (0-2000); Body Fluid White Blood Cells 230 CUMM (0-200)
[2023-06-22] VITALS (13 sets, daily range): BP systolic 106–126; BP diastolic 34–56; PULSE 65–76; RESP 12–22; TEMP 97.7–98.6; O2SAT 96–100
[2023-06-22] MEDS ORDERED: NALOXONE HCL 0.4 MG/ML VIAL ONE (08:01)
[2023-06-22] MEDS ORDERED: EPINEPHrine HCL 1 MG/1 ML AMP ONE (08:02)
[2023-06-22] MEDS ORDERED: MIDAZOLAM HCL 5 MG/ML-1ML VIAL ONE (08:02)
[2023-06-22] MEDS ORDERED: FLUMAZENIL 0.1 MG/ML INJ 10ML MDV IV ONE (08:02)
[2023-06-22] MEDS ORDERED: LIDOCAINE 2%HCL (LOCAL ANESTH.) INJ 20ML MDV ONE (08:02)
[2023-06-22] MEDS ORDERED: SODIUM CHLORIDE LOCK 10 ML ONE (08:02)
[2023-06-22] MEDS ORDERED: GLYCOPYRROLATE 0.2 MG/ML 1ML VIAL ONE (08:02)
[2023-06-22] MEDS ORDERED: LIDOCAINE 2% JELLY 11ml (GLYDO) ONE (08:02)
[2023-06-22] MEDS ORDERED: fentaNYL CITRATE 100 MCG/2 ML VL ONE (08:03)
[2023-06-22] MEDS: HYDROmorphone HCL 2 MG/ML VL/or syr IV PRN (11:51)
[2023-06-22 13:06] LABS: Protein, Body Fluid 1.3 g/dL (.)
[2023-06-22 13:06] LABS: Protein, Body Fluid 0.3 g/dL (.)
[2023-06-23] VITALS (11 sets, daily range): BP systolic 101–121; BP diastolic 49–60; PULSE 61–76; RESP 16–20; TEMP 97.7–98.8; O2SAT 94–100
[2023-06-23] MEDS: APIXABAN 5 MG TAB PO SCH (09:11)
[2023-06-24] VITALS (12 sets, daily range): BP systolic 94–129; BP diastolic 48–59; PULSE 65–75; RESP 16–22; TEMP 97.4–98.4; O2SAT 95–100
[2023-06-24 10:55] LABS: Hemoglobin 9.7 g/dL (13.5-17.5); Lymphocytes # (auto) 0.7 10 ^3/uL (0.4-5.4); Monocytes # (auto) 0.6 10 ^3/uL (0-1.3); Neutrophils # (auto) 4.8 10 ^3/uL (1.6-8.6)
[2023-06-24 10:57] LABS: Basophils # (auto) 0 10 ^3/uL (0-0.2); Basophils % (auto) 0.8 % (0.0-2.0); Eosinophils # (auto) 0.1 10 ^3/uL (0-0.8); Hematocrit 32.3 % (41.0-53.0); Lymphocytes % (auto) 10.7 % (10.0-50.0); Mean Corpuscular Hgb Conc. 30.1 g/dL (32.0-36.0); Mean Corpuscular Volume 76.5 fL (80.0-100.0); Monocytes % (auto) 9.4 % (0.0-12.0); Neutrophils % (auto) 77.1 % (37.0-80.0); Red Blood Cells 4.23 10^6/uL (4.5-5.90); Red Cell Distribution Width 21.8 % (11.8-14.3); White Blood Cell 6.2 10^3/uL (4.4-10.8)
[2023-06-24 11:09] LABS: Alanine Aminotransferase 12 U/L (7-40); Albumin 3.2 g/dL (3.2-4.8); Alkaline Phosphatase 86 U/L (46-116); Anion Gap 5 (5-15); Aspartate Aminotransferase 13 U/L (13-40); BUN/Creatinine Ratio 12.5 (10.0-20.0); Bilirubin, Total 0.4 mg/dL (0.2-1.0); Blood Urea Nitrogen 8 mg/dL (9-23); Calcium 8.9 mg/dL (8.5-10.1); Carbon Dioxide 32 mmol/L (20-30); Chloride 106 mmol/L (98-107); Glucose 115 mg/dL (74-106); Potassium 4.4 mmol/L (3.5-5.1); Sodium 143 mmol/L (136-145); Total Protein 5.6 g/dL (5.7-8.2)
[2023-06-24] MEDS: ONDANSETRON HCL 4 MG/2 ML VIAL IV PRN (18:31)
[2023-06-25] VITALS (8 sets, daily range): BP systolic 106–115; BP diastolic 42–57; PULSE 59–71; RESP 16–19; TEMP 97.7–98; O2SAT 94–100
[2023-06-25] MEDS ORDERED: PREGABALIN CAPSULE 75 MG CAP ONE (07:01)
== END 2023-06-25 19:45 | DRG 280 ==
LOC: TELE-WESTW 21:05
PROVIDERS: ADMIT Specialist; ATTEND Specialist
PROC: 5A09357 Assistance with Respiratory Ventilation, Less than 24 Consecutive Hours, Continuous Positive Airway Pressure (ICD-10-PCS; 2023-06-14)
PROC: 0W993ZZ Drainage of Right Pleural Cavity, Percutaneous Approach (ICD-10-PCS; 2023-06-18)
PROC: 0W9B3ZZ Drainage of Left Pleural Cavity, Percutaneous Approach (ICD-10-PCS; 2023-06-18)
PROC: 0W9B3ZZ Drainage of Left Pleural Cavity, Percutaneous Approach (ICD-10-PCS; principal; 2023-06-21)
PROC: 0B9D8ZX Drainage of Right Middle Lung Lobe, Via Natural or Artificial Opening Endoscopic, Diagnostic (ICD-10-PCS; 2023-06-22)
DX: I11.0 Hypertensive heart disease with heart failure (principal); I21.29 ST elevation (STEMI) myocardial infarction involving other sites; E43 Unspecified severe protein-calorie malnutrition; R53.2 Functional quadriplegia; J96.21 Acute and chronic respiratory failure with hypoxia; I50.43 Acute on chronic combined systolic (congestive) and diastolic (congestive) heart failure; J96.01 Acute respiratory failure with hypoxia; J18.9 Pneumonia, unspecified organism; J44.0 Chronic obstructive pulmonary disease with (acute) lower respiratory infection; F11.20 Opioid dependence, uncomplicated; G95.9 Disease of spinal cord, unspecified; I25.118 Atherosclerotic heart disease of native coronary artery with other forms of angina pectoris; E78.00 Pure hypercholesterolemia, unspecified; D50.9 Iron deficiency anemia, unspecified; E66.9 Obesity, unspecified; I25.5 Ischemic cardiomyopathy; E66.09 Other obesity due to excess calories; F32.A Depression, unspecified; G89.29 Other chronic pain; K21.9 Gastro-esophageal reflux disease without esophagitis; I35.0 Nonrheumatic aortic (valve) stenosis; E11.9 Type 2 diabetes mellitus without complications; Z95.2 Presence of prosthetic heart valve; I25.2 Old myocardial infarction; Z95.5 Presence of coronary angioplasty implant and graft; Z83.3 Family history of diabetes mellitus; Z82.49 Family history of ischemic heart disease and other diseases of the circulatory system; Z88.6 Allergy status to analgesic agent; Z88.5 Allergy status to narcotic agent; Z79.899 Other long term (current) drug therapy; Z88.0 Allergy status to penicillin; Z79.82 Long term (current) use of aspirin; Z79.84 Long term (current) use of oral hypoglycemic drugs; Z87.891 Personal history of nicotine dependence; Z79.02 Long term (current) use of antithrombotics/antiplatelets; Z79.01 Long term (current) use of anticoagulants; Z68.34 Body mass index [BMI] 34.0-34.9, adult; Z74.01 Bed confinement status; Z86.73 Personal history of transient ischemic attack (TIA), and cerebral infarction without residual deficits; Z99.3 Dependence on wheelchair; J98.09 Other diseases of bronchus, not elsewhere classified
CPT/HCPCS: 31624; 32554; 36415; 36600; 71045; 76604; 76942; 80053; 82805; 83735; 83880; 83986; 84100; 84484; 85025; 85610; 85730; 86141; 87040; 87070; 87081; 87205; 89051; 93005; 94640; 94660; 94667; 94668; G0378; J0171; J2250; J2405; J2543